=== PATIENT | male | born 1935 | race Caucasian/White ===

== ENCOUNTER 2016-03-27 13:25 | Inpatient (IN) | payer MEDICARE ==
[~2016-03-27] VITALS: Ht 172.7 cm; Wt 75.4 kg
--- NOTE | 2016-03-27 01:30 | NUR ---
critical lab Susan from the lab called with critical value lab of BUN at 103, paged night hospitalist with information. No call back of new orders. Will continue to monitor patient.
[~2016-03-27 13:25] MED LIST: EZET1TAB16 PO; FAMO20T PO; GLIP5TAB21 PO; INSU100C11 SUBQ; IPRA3AMP IH; LABE100T4 PO; TAMS0.4C98 PO; TRAZ-115 PO
[2016-03-27 13:48] VITALS: BP 110/70; PULSE 107; RESP 24; O2SAT 96
--- NOTE | 2016-03-27 14:43 | DRSVH ---
PROCEDURE: X-RAY CHEST, TWO VIEWS ([id number]) INDICATIONS: ABDOMEN PAIN TECHNIQUE: 2 views of the chest were acquired. COMPARISON: [facility], CR, XR PICC LINE PLACE BY NURSE, 01/01/2016, 13:18. [facility], CR, XR CHEST 1VW (PORTABLE), 12/24/2015, 13:07. [facility], CR, XR CHEST 1VW (PORTABLE), 11/17/2015, 5:25. [facility], CR, XR CHEST 1VW (PORTABLE), 11/19/2015, 5:23. FINDINGS: Surgical changes and devices: Cerclage wires are projected over the left apex. Lungs and pleura: There is likely a small left pleural effusion markedly decreased when compared with the study dated 12/24/15. The lungs are otherwise clear. No pneumothorax. Mediastinum: Mediastinal contours are normal. Heart size is normal. Bones and chest wall: No suspicious bony abnormalities. Soft tissues appear unremarkable. IMPRESSION: Small left pleural effusion. Dictated by: Erin Hazel M.D. on 03/27/2016 at 14:42 Approved by: Erin Hazel M.D. on 03/27/2016 at 14:42
[2016-03-27 16:02] LABS: BASOPHILS % (AUTO) 0.9 % (0-3); EOSINOPHILS % (AUTO) 1.3 % (0-5); Mean Corpuscular Hemoglobin 29.6 pg (27.0-35.0); Mean Corpuscular Volume 92.2 fL (81-100); NEUTROPHILS % (AUTO) 60.5 % (40-74); Platelet Count 332 bil/L (150-400)
[2016-03-27 16:27] LABS: Magnesium 2.7 mg/dL (1.6-2.6)
--- NOTE | 2016-03-27 16:27 | ED.REPORT ---
HPI- Male Date of Service Mar 27, 2016 ED Provider: Brissa Rhodes MD An 80 year old male with a history of respiratory failure, pneumonia, hypertension, diabetes, COPD, and cancer presents to the ED due to a possible UTI. Per pt's family, the pt was complaining of abdominal pain and urinary frequency yesterday, and requested that he be taken to a doctor. The family also reports increasing confusion and hematuria. They also believe that his feeding tube, which was placed following a recent intubation, may have problems. The pt was recently discharged from the hospital, where he had been admitted for pneumonia. Nursing Notes Stated Complaint: POSS UTI Chief Complaint: Male Abdominal Pain Nursing Notes Reviewed: Yes Allergies: Coded Allergies: No Known Allergies (Verified , 03/27/16) Scheduled Ezetimibe/Simvastatin 10-80 mg (Vytorin 10-80 mg) 1 Each Tablet 1 TABLET PO DAILY Famotidine (Pepcid) 20 Mg Tablet 20 MG PO BID Glipizide ER (Glipizide ER) 10 Mg Tab.er.24 10 MG PO BID Labetalol (Labetalol) 100 Mg Tablet 100 MG PO BID Tamsulosin (Flomax) 0.4 Mg Capsule 0.4 MG PO DAILY Trazodone (Trazodone) 50 Mg Tablet 50 MG PO HS Scheduled PRN Insulin Lispro (HumaLOG U100 Insulin Cartridge Refill) 100 Unit/1 Ml Cartridge 1 UNIT SUBQ TIDWM PRN PRN BLOOD GLUCOSE Blood Sugar Lispro Correction <151 0 units 151-175 1 unit 176-200 2 units 201-225 3 units 226-250 4 units 251-275 5 units 276-300 6 units 301-325 7 units 326-350 8 units 351-375 9 units 376-400 10 units >400 12 units Check blood sugars before meals and at bedtime. Use correction factor only before meals. Ipratropium/Albuterol Sulfate (Iprat-Albut 0.5-3(2.5) mg/3 mL Inhalant Soln) 3 Ml Ampul.neb 3 ML IH Q6 PRN PRN For Wheezing General Time Seen by MD: 16:22 Chief Complaint Blood in urine Hx Obtained From: Patient, Other family... Onset Occurred: 1 day ago Symptom Duration: Since onset Recent Healthcare: Recent doctor visit, Recent hospitalization Similar Sx Previous: Yes Past Medical History Past Medical History Notes: Patient admitted November [id number] for acute respiratory failure with hypercapnia requiring intubation, Haemophilus pneumonia and septic shock Past Medical History Admitted for acute respiratory failure with hypercapnia with COPD exacerbation 11/2015 My office pneumonia 11/2015 Septic shock requiring pressor use secondary to Haemophilus pneumonia 11/2015 Prostate cancer Acute kidney and injury on chronic kidney disease secondary to sepsis 11/20/2015 Diabetes Urinary retention Hearing loss. HLD. CKD stage III. Reports: COPD, Cancer, Diabetes mellitus, Hypertension Past Surgical History Reports: Appendectomy, Inguinal hernia repair, Prostatectomy, Tonsillectomy Smoking History Former Smoker Social History Resides at [facility] Alcohol Use: Denies alcohol use Ambulatory Status Independent Review of Systems GI: Reports: Abdominal pain Male: Reports Hematuria, Reports Urinary frequency Musculoskeletal: Denies: Back pain, Neck pain Skin: Denies Rash Complete sys rev & neg: except as marked. Respiratory: Reports: Shortness of breath, Denies: Non-productive cough Cardiovascular: Denies: Chest pain Psychiatric: Reports: Confusion Physical Exam Initial Vital Signs Vital Signs (First) Date Time Temp Pulse Resp B/P Pulse Ox O2 Delivery O2 Flow Rate FiO2 03/27/16 13:48 35.9 107 24 110/70 96 Room Air Initial VS: Reviewed exam deferred General/Constitutional: Awake, Alert Abdomen: Atraumatic, Soft mild diffuse tenderness to palpation PEG tube in place in epigastrium chronically ill appearing Skin: Atraumatic, Color NL, No rash, Warm, Dry Head / Eyes: Atraumatic, Normocephalic, PERRL, EOMI ENT: Atraumatic, Airway patent, Mucous membranes moist Neck: Atraumatic, Supple, Full range of motion Respiratory / Chest: Atraumatic, Breath sounds NL, Breath sounds = bilat, No respiratory distress Cardiovascular: Heart rate NL, Regular rhythm, Heart sounds NL Back: Atraumatic, Full range of motion Upper Extremity / MS: Atraumatic, Full range of motion Lower Extremity / Pelvis / MS: Atraumatic, Full range of motion Neurologic: Speech NL, No motor deficits, No sensory deficits Mental Status: Positive: Confused Psychiatric: Affect NL, Mood NL Interpretation & Diagnostics Lab Results Interpretation Result Diagram: 03/27/16 1550 03/27/16 2230 Test 03/27/16 15:50 03/27/16 16:30 White Blood Count 8.2th/mm3 (3.8-10.1) Red Blood Count 4.73mil/mm3 (4.40-5.80) Hemoglobin 14.0g/dL (13.8-17.2) Hematocrit 43.6% (41.0-50.0) Mean Corpuscular Volume 92.2fL (81-100) Mean Corpuscular Hemoglobin 29.6pg (27.0-35.0) Mean Corpuscular Hemoglobin Concent 32.1% (32.0-37.0) Red Cell Distribution Width 13.4% (12.3-15.4) Platelet Count 332bil/L (150-400) Neutrophils (%) (Auto) 60.5% (40-74) Lymphocytes (%) (Auto) 19.1% (14-46) Monocytes (%) (Auto) 18.0% (4-12) Eosinophils (%) (Auto) 1.3% (0-5) Basophils (%) (Auto) 0.9% (0-3) Lactic Acid Level 3.1mmol/L (0.4-2.0) Magnesium Level 2.7mg/dL (1.6-2.6) Total Bilirubin 0.5mg/dL (0.0-1.2) Aspartate Amino Transf (AST/SGOT) 20U/L (0-50) Alanine Aminotransferase (ALT/SGPT) 19U/L (0-44) Alkaline Phosphatase 79U/L (25-160) Total Protein 9.4g/dL (6.4-8.4) Albumin 3.4g/dL (3.4-5.0) Lipase 238U/L (13-60) Urine Color Dark yellow (YELLOW) Urine Appearance Turbid (CLEAR,HAZY) Urine pH 9.0 (5.0-8.0) Urine Specific Gill 1.010 (1.003-1.035) Urine Protein 100mg/dL (NEG,TRACE) Urine Glucose (UA) Negativemg/dL (NEGATIVE) Urine Ketones Negativemg/dL (NEGATIVE) Urine Occult Blood Large (NEGATIVE) Urine Nitrite Positive (NEGATIVE) Urine Bilirubin Negative (NEGATIVE) Urine Urobilinogen Normalmg/dL (NORMAL) Urine Leukocyte Esterase Moderate (NEGATIVE) Urine RBC 3-10/hpf (0-2) Urine WBC 11-50/hpf (0-5) Urine Epithelial Cells None/hpf (NONE-MOD) Urine Crystals None seen (NONE SEEN) Urine Bacteria Few/hpf (NONE-FEW) Urine Hyaline Casts None/lpf (NONE) Urine Granular Casts None seen (NONE SEEN) Urine Waxy Casts None seen (NONE SEEN) Urine Red Blood Cell Casts None seen (NONE SEEN) Urine White Blood Cell Casts None seen (NONE SEEN) Urine Mucus Present (None Seen) Urine Trichomonas None seen (NONE SEEN) Urine Yeast None (NONE SEEN) Urinalysis Comment None Urine Culture Reflexed Indicated ECG Interpretation ECG Interpretation: sinus tachycardia with a rate of [address] elevation slight ST depression in V2 T wave inversion in AVR and V1 Time: 16:59 Interpreted by: ED physician Re-Eval/Medical Decision Med Decision/Clinical Course 80-year-old male with extensive past medical history brought in by his family with concern for hematuria and increased confusion. Differential diagnosis includes but is not limited to dehydration versus urinary tract infection versus electrolyte abnormality versus pneumonia. Chest x-ray is concerning for small pleural effusion. Patient has urinary tract infection on urinalysis. He has an elevated lactate of 3.2, along with new renal insufficiency with creatinine of 3 which is new for him, and hyperkalemia with potassium of greater than 6. EKG was unchanged from prior, and at this time, I feel hyperkalemia can be treated with fluids alone. Patient was admitted to hospital. I have given him a gram of Rocephin in the emergency department to treat his urinary tract infection, and fluids for his lactate acidosis. His vital signs remained normal while he was here. I did start having a discussion with the family about his CODE STATUS. They are not yet ready to make him DO NOT RESUSCITATE, though I explained to them that I do not feel he will have meaningful recovery if he does code. Her aware and amenable to plan for admission at this time. Source of Hx: Old records Re-Evaluation/Progress : Time of Eval: 17:17 Patient Status: Condition unchanged Re-Evaluation/Progress Note: Pt rechecked, who is resting. The diagnosis and plan for discharge are addressed with pt's family present. The pt and his family understand and agree with the plan. All questions are addressed at this time. Consultation : Referral / Consult Name: Pa French MD Consulted With: Hospitalist Call Returned at: 17:06 Supervisor Fish Processing: Agrees with eval, Agrees with plan, Accepts admit Note: Spoke with Dr. French, hospitalist, regarding pt's case. Dr. French agrees with the evaluation and agrees to admit the pt. Counseled Regarding: Diagnosis, Lab results, Need for admission Discharge & Departure Impression: Primary Impression: UTI (urinary tract infection) Urinary tract infection type: site unspecified Hematuria presence: with hematuria Qualified Code: N39.0 - Urinary tract infection, site not specified Additional Impressions: Pancreatitis Acute kidney failure Acute renal failure type: unspecified Qualified Code: N17.9 - Acute kidney failure, unspecified Lactic acidosis Dehydration Disposition: ADMITTED TO HOSPITAL Discharge Condition All VS Reviewed: Yes Condition: Stable Referrals: Roscoe Lynch MD (PCP) [facility] Att[facility] Portions of this note were transcribed by Kendra Díaz. Dr. Carmelo Benson personally performed the history, physical exam and medical decision-making; I reviewed and confirmed the accuracy of the information in the transcribed note. Signed by: emerald Nunn, 03/27/2016, 21:07 copies to: Roscoe Lynch MD, Rebecca A MD Mar 27, 2016 16:27 KENDRA DÍAZ Mar 27, 2016 16:58 Primary Impression: UTI (urinary tract infection) Urinary tract infection type: site unspecified Hematuria presence: with hematuria Qualified Code: N39.0 - Urinary tract infection, site not specified Additional Impressions: Pancreatitis Acute kidney failure Acute renal failure type: unspecified Qualified Code: N17.9 - Acute kidney failure, unspecified Lactic acidosis Dehydration Disposition: ADMITTED TO HOSPITAL Discharge Condition All VS Reviewed: Yes Condition: Stable Referrals: Roscoe Lynch MD (PCP) [facility] Portions of this note were transcribed by Kendra Díaz. Dr. Carmelo Benson personally performed the history, physical exam and medical decision-making; I reviewed and confirmed the accuracy of the information in the transcribed note. Signed by: emerald Nunn, 03/27/2016, 21:07 copies to: Roscoe Lynch MD, Rebecca A MD Mar 27, 2016 16:27 KENDRA DÍAZ Mar 27, 2016 16:58
[2016-03-27] MEDS ORDERED: 0.9% Sodium Chloride 1,000 ML IV ONE (16:45)
[2016-03-27] MEDS ORDERED: cefTRIAXone Inj 1,000 MG in IV Premix 1 EACH IV ONE (16:45)
[2016-03-27 16:59] VITALS: BP 119/63; PULSE 106; RESP 20; O2SAT 97
[2016-03-27] MEDS ORDERED: Alum-Mag Hydrox-Simeth 30 mL Suspension PO PRN ×2 (17:15→17:20)
[2016-03-27] MEDS ORDERED: Ondansetron 2 mg/mL 2 mL Inj IVPUSH PRN ×2 (17:15→17:20)
[2016-03-27] MEDS: 0.9% Sodium Chloride 1,000 ML IV SCH (17:17)
[2016-03-27] MEDS ORDERED: Polyethylene Glycol (PEG) 17 Gm Powder PO PRN (17:20)
[2016-03-27] MEDS ORDERED: HYDROcodone-APAP 5-325 mg Tablet PO PRN (17:20)
[2016-03-27 17:41] LABS: COLOR,URINE DARK YELLOW (YELLOW)
[2016-03-27 17:42] LABS: APPEARANCE,URINE TURBID (CLEAR,HAZY); OCCULT BLOOD,URINE LARGE (NEGATIVE); UROBILINOGEN,URINE NORMAL (NORMAL)
[2016-03-27 18:14] VITALS: BP 118/55; PULSE 105; RESP 26; O2SAT 95
[2016-03-27 21:05] VITALS: BP 142/80; PULSE 96; RESP 18; O2SAT 96
[2016-03-27] MEDS ORDERED: Glucose 40% Oral Gel 15 Gm Tube PO PRN (21:35)
--- NOTE | 2016-03-27 21:48 | PCM.HPMED ---
Subjective Date of Service Mar 27, 2016 Primary Provider: Admitting Physician: Pa French MD Primary Care Physician: Roscoe Lynch MD Attending Physician: Pa French MD Admit Status: Full Admit, Admit to [facility] Team Chief Complaint: Patient really does not give any history everything was obtained from emergency room notes, and only the nursing notes are available and they are quite brief at this time. History of Present Illness: An 80 year old male with a history of respiratory failure, pneumonia, hypertension, diabetes, COPD, and cancer presents to the ED due to a possible UTI. Per pt's family, the pt was complaining of abdominal pain and urinary frequency yesterday, and requested that he be taken to a doctor. The family also reports increasing confusion and hematuria. They also believe that his feeding tube, which was placed following a recent intubation, may have problems. The pt was recently discharged from the hospital, where he had been admitted for pneumonia. As I understand things patient went to see urgent care yesterday and was prescribed some antibiotics for urinary symptoms. Today he has done poorly and while he may be improved is no family available this point time to verify this and the patient is extremely hard of hearing and confused. Review of Systems: Patient really cannot give any reliable review of systems. He states he is comfortable. So I would state this is unobtainable. Below is the review of systems obtained in the emergency room GI: Reports: Abdominal pain Male: Reports Hematuria, Reports Urinary frequency Musculoskeletal: Denies: Back pain, Neck pain Skin: Denies Rash Complete sys rev & neg: except as marked. Respiratory: Reports: Shortness of breath, Denies: Non-productive cough Cardiovascular: Denies: Chest pain Psychiatric: Reports: Confusion Allergies Coded Allergies: No Known Allergies (Verified , 03/27/16) PMH No family available to obtain accurate past medical week to however have a list of medications from [facility] Recently placed G-tube perhaps January 2016 Acute respiratory failure/aspiration and septic shock 11/15 Encephalopathy 11/15 CKD3 Uncontrolled diabetes type II Hypertension hyperlipidemia History of prostate cancer?? As reported 11/2015 H+P Medical History Hearing loss. HLD. CKD stage III. Reports: Cancer, Diabetes mellitus, Hypertension Surgical History Reports: Appendectomy, Inguinal hernia repair, Prostatectomy, Tonsillectomy Family History Unknown. Patient unable to provide family history since he is sedated and intubated Social History Occupation: Unknown Hx Alcohol Use: No Hx Substance Use: No Hx Tobacco Use: No Smoking Status: Former Smoker Living Arrangement: with Family Social History Hx Alcohol Use: No Hx Substance Use: No Hx Tobacco Use: No Smoking Status: Former Smoker Living Arrangement: with Family Exam Vital Signs Vital Sign - Last Date Time Temp Pulse Resp B/P Pulse Ox O2 Delivery O2 Flow Rate FiO2 03/27/16 21:05 36.2 96 18 142/80 96 Room Air Exam Gen.- A+ O 3 no apparent distress. Thin elderly male lying in bed I need to yell to communicate with him into his ear Eyes- open conjunctiva clear, pupils equal nonicteric ENT- ears normal, nose normal Neck- supple/trach midline CVS- RRR no murmur or gallop Lungs CTA GI- NABS/NT soft, G-tube in place Musc- moving 4 no obvious deformity Neuro- cranial nerves II through XII intact to gross examination, nonfocal Skin- warm and dry Psych- pleasant and appropriate, seemingly confused Really answer questions Lab and Diagnostics Result Diagram: 03/27/16 1550 03/27/16 1550 Assessment & Plan 80-year-old male from home failing to thrive possibly antibiotic failure for UTI. Has decreased level of consciousness, hyperkalemia. I believe his urine is clear at this point in time because he is partially treated with oral antibiotics. UTI/sepsis-Rocephin plus IV fluids Acute metabolic encephalopathy-monitor and try and avoid meds that might exacerbate confusion Hyperkalemia-giving a dose of Kayexalate now and IV fluids follow up in the a.m. as well as now and monitor cardiac status Diabetes 2-check HG A1c, given his regular dose of Lantus and sliding scale and going to hold his glyburide for now. We will not be giving him prandial as the patient is nothing by mouth Dysphagia-patient is nothing by mouth till we can assess his needs will get a nutrition consult for tube feeds Prophylaxis- DVT with SCDs and heparin Disposition from home where his cares for him is a full code Greater than 60 minutes admitting this medically complex patient GI Prophylaxis: H2 candida VTE Prophylaxis: Sub-Q Heparin (Unfractionated) Resuscitation Status: CPR: Attempt Resuscitation Pa French MD Mar 27, 2016 21:48
[2016-03-27] MEDS: Insulin LISPRO 300 Unit/3 mL Inj SUBQ SCH (22:00)
[2016-03-27 23:58] VITALS: PULSE 90
[2016-03-28] VITALS (7 sets, daily range): BP systolic 104–140; BP diastolic 61–78; PULSE 73–90; RESP 18–22; O2SAT 95–97
[2016-03-28] MEDS: Heparin 5,000 Unit/mL Inj SUBQ SCH ×4 (00:05→17:08)
[2016-03-28] MEDS: 0.9% Sodium Chloride 1,000 ML IV SCH ×3 (03:17→21:36)
[2016-03-28 06:20] LABS: BASOPHILS % (AUTO) 0.7 % (0-3); EOSINOPHILS % (AUTO) 1.9 % (0-5); MONOCYTES % (AUTO) 16.1 % (4-12); Mean Corpuscular Hemoglobin 29.4 pg (27.0-35.0); Mean Corpuscular Volume 91.4 fL (81-100); NEUTROPHILS % (AUTO) 69.3 % (40-74); Platelet Count 279 bil/L (150-400)
[2016-03-28] MEDS ORDERED: Famotidine 20 mg/50 mL NS Premix IV SCH (08:58)
[2016-03-28] MEDS: Insulin LISPRO 300 Unit/3 mL Inj SUBQ SCH ×4 (09:27→20:53)
--- NOTE | 2016-03-28 11:15 | NUR ---
NUTRITION ASSESSMENT: ASSESS: Pt is an 80yo M admitted for sepsis, UTI and possible pancreatitis. Pt has a PEG tube and per H&P family is concerned that the tube may be malfunctioning. RN reported that PEG flushed well with no issues. Received consult to start TF and verbal order in morning rounds to start TF. ST to evaluate pt today. RN aware of TF orders PMHX: Respiratory failure, Pneumonia, HTN, DM, COPD LABS: Reviewed. Bun 101, Recreational Therapy Aide 3.07, Glu 262, Lipase 238, Alb 3.4 MEDS: Reviewed. GI: BMx2 SKIN: Mukesh 17 CURRENT WTS: 70.8kg, BMI 23.6kg/m3 HOME TF: Unsure of home TF order. Balwinder f/u with family when available DIET: NPO EST. NEEDS: possible pancreatitis Kcals: 1750-2450kcal/day (25-35kcal/kg) Pro: 70-105g/day (1.0-1.5g/kg) Fluids: 1750-2450ml/day NUTRITION DIAGNOSIS: 1.) Inadequate oral intake related to inability to tolerate adequate PO as evidence by need for chronic TF NUTRITION INTERVENTION: 1.) Due to possible pancreatitis, will start pt on an elemental formula. Recommend start pt on Vital 1.5 @ 10ml/hr. Monitor for tolerance. If tolerated well, advance by 10ml q 6 hrs until reach goal rate of 55ml/hr. TF at goal will provide 1897kcal and 85g pro (100% estimated needs) 2.) Closely monitor TF tolerance and possible malfunction of tube as family is concerned about function 3.) Advance diet per ST. Will adjust TF goal rate if pt is able to tolerate a diet MONITOR / EVAL: TF start/foreign, ST eval, wt, labs, GI, POC, nutrition status. Will continue to monitor per high nutrition risk guidelines
--- NOTE | 2016-03-28 12:24 | NUR ---
Tube feed G-tube feed started at 1220, settings verified by another RN, Sabine. Per orders, 10mL/hr, to be advanced Q 6 hrs TOLERATED, with goal being 55mL/hr. Tubing to be changed q24hr. 40mL water flush every 4 hrs. Pt tolerating well. Will continue to monitor. Addendum: 03/28/16 at 1710 by NILE ROBERTS RN Residual checked at 1640=<5mL pt tolerating feed well, will continue to monitor.
--- NOTE | 2016-03-28 12:59 | NUR ---
Evaluation completed. Rec: Parker Strip/Pureed with 1:1 assist. Medication as tolerated. Sips h20 and ice chips ok. TOOL REPAIRER BENCH to follow. Please go to "Notes" then click on "Assessments and Notes" (bottom left corner of screen). Then select appropriate discipline tab on top of screen.
--- NOTE | 2016-03-28 15:11 | PCM.PNMED ---
Subjective Date of Service Mar 28, 2016 Subjective - Pt seen and examined this morning. - No acute events over night, - Denies any new complaints. Exam Vital Signs Vital Sign - Last Date Time Temp Pulse Resp B/P Pulse Ox O2 Delivery O2 Flow Rate FiO2 03/28/16 14:49 36.7 74 20 113/67 96 Room Air Intake and Output 03/27/16 03/27/16 03/28/16 Cumulative From/Thru 15:00 23:00 07:00 03/27/16 17:18 - 03/28/16 06:40 Intake Total 1000 ml 603 ml 1603 ml Balance 1000 ml 603 ml 1603 ml Intake Oral 0 ml 0 ml IV Total 1000 ml 603 ml 1603 ml # Voids 3 3 # Bowel Movements 2 2 Exam Gen.- Not in apparent distress. Thin elderly male lying in bed. Hard of hearing Eyes- open conjunctiva clear, pupils equal nonicteric ENT- ears normal, nose normal Neck- supple/trach midline, no lymphadenopathy. CVS- RRR no murmur or gallop Lungs CTA bilaterally, normal respiratory effort GI- soft, non tender, non distended, BS +nt, G-tube in place Musc- moving 4 no obvious deformity Neuro- cranial nerves II through XII intact to gross examination, nonfocal Skin- warm and dry IVs and Medications Medications Reviewed: Medications were reviewed in detail Lab and Diagnostics Result Diagram: 03/28/1652403/28/16524 Assessment & Plan 80-year-old male from home failing to thrive possibly antibiotic failure for UTI. UTI/sepsis- - On IV Rocephin day # 2 - IV hydration Acute metabolic encephalopathy - Multifactorial, infectious vs dementia - monitor and try and avoid medications that might exacerbate confusion Hyperkalemia - Received a dose of Kayexalate yesterday - K today mornin.3 down from 6.4 Diabetes - HbA1c pending - Lispro sliding scale Dysphagia - patient is nothing by mouth till we can assess his needs will get a nutrition consult for tube feeds - Pending speech and swallow evaluation Prophylaxis- DVT with SCDs and heparin Disposition from home where his cares for him is a full code GI Prophylaxis: H2 candida VTE Prophylaxis: Sub-Q Heparin (Unfractionated) VTE Mechanical Devices: Intermittant Pneumatic CD Resuscitation Status: CPR: Attempt Resuscitation Dany Lopez MD Mar 28, 2016 15:11
--- NOTE | 2016-03-28 18:56 | NUR ---
IV Pt agitated with IV occluding in LAC, family asked for another placement. aware. Aseptic technique used. Addendum: 03/28/16 at 1919 by NILE ROBERTS RN Amended: Links added.
[2016-03-28] MEDS: Insulin GLARgine 100 Unit/mL Syringe SUBQ SCH (20:54)
[2016-03-29] VITALS (9 sets, daily range): BP systolic 110–136; BP diastolic 61–84; PULSE 63–90; RESP 17–20; O2SAT 92–96
[2016-03-29] MEDS: Heparin 5,000 Unit/mL Inj SUBQ SCH ×3 (00:29→17:21)
--- NOTE | 2016-03-29 05:29 | NUR ---
Tube Feed/GI Tube feed at 30ml/hr, goal 55. Residual assessed Q4H. Pt incontinent of stool/urine x 1. Patient assists with repositioning, uses call light for needs.
[2016-03-29] MEDS: Insulin LISPRO 300 Unit/3 mL Inj SUBQ SCH ×4 (07:47→21:38)
[2016-03-29] MEDS: 0.9% Sodium Chloride 1,000 ML IV SCH ×2 (07:51→19:31)
--- NOTE | 2016-03-29 08:03 | NUR ---
Tube feed/BG Residual tested, =130mL. Adjusted rate to 40mL/hr. pts blood sugar this AM 292. Pt eating nectar/pureed diet. Will continue to monitor. Addendum: 03/29/16 at 1313 by NILE ROBERTS RN Residual @ 8mL. rate will be adjusted to 50ml/hr at 6hrs. Pt tolerating feeding well. Denies having any questions. Addendum: 03/29/16 at 1550 by NILE ROBERTS RN Tube feed now at 50ml/hr @ 1500. will continue with hourly rounding. Pt tolerating well Addendum: 03/29/16 at 2319 by NILE ROBERTS RN Tube feed adjusted to 55mL/hr at 2200. Residual at that time was 150mL. Pt tolerating it well. HOB at or above 30*
--- NOTE | 2016-03-29 08:35 | NUR ---
KASSIDY signed Verbal permission to sign by pt's spouse over the phone. ANDREW Sweet
[2016-03-29 08:48] LABS: Mean Corpuscular Hemoglobin 29.5 pg (27.0-35.0); Mean Corpuscular Volume 93.4 fL (81-100)
--- NOTE | 2016-03-29 09:32 | NUR ---
Patient is on safest p.o. diet with supplemental tube feeds. PERFORMANCE CONSULTANT to sign off acute care. PERFORMANCE CONSULTANT recommended post acute. Encourage po intake while in hospital
[2016-03-29] MEDS: Famotidine Inj 20 MG in IV Premix 1 EACH IV SCH (10:15)
--- NOTE | 2016-03-29 10:48 | NUR ---
Evaluation completed. Please go to "Notes" then click on "Assessments and Notes" (bottom left corner of screen). Then select appropriate discipline tab on top of screen.
[2016-03-29] MEDS: cefTRIAXone Inj 1,000 MG in IV Premix 1 EACH IV SCH (10:53)
--- NOTE | 2016-03-29 11:44 | NUR ---
NUTRITION FOLLOW UP: ASSESS: 80 yo M admitted for sepsis, UTI and possible pancreatitis. Pt appears to be tolerating TF via PEG tube, currently at 40 ml/hr advancing towards goal. Pt with poor PO intake. PMHX: Respiratory failure, Pneumonia, HTN, DM, COPD LABS: Reviewed. BUN 81, Cr 2.54, Glu 367 MEDS: Reviewed. Insulin. GI: 2 BM (03/28)/ SKIN: Mukesh 17 CURRENT WT: 70.5 kg, BMI 23.6 kg/m2 HOME TF: Unsure of home TF order. Will f/u with family when available DIET: Pureed. PO intake 25%. ESTIMATED NEEDS: possible pancreatitis Calories: 1245-4445 kcal/day (25-35kcal/kg BW) Protein: 70-105 g/day (1.0-1.5g/kg BW) Fluids: 8837-7871 ml/day NUTRITION DIAGNOSIS: 1.) Inadequate oral intake related to inability to tolerate adequate PO as evidence by need for chronic TF.---PERSISTS. NUTRITION INTERVENTION: 1.) Continue to advance TF of Vital 1.5 to goal rate of 55 ml/hr. TF at goal will provide 1897 kcal and 85 g protein (100% estimated needs). 2.) Advance diet per ST. Will adjust TF goal rate based on pt's PO intake. MONITOR/EVALUATE: TF start/foreign, diet tolerance, wt, labs, GI, POC, nutrition status. Follow per high nutrition risk guidelines
--- NOTE | 2016-03-29 11:51 | NUR ---
Social Work: Initial Assessment Data: Pt is an 80 y/o male admitted for sepsis, UTI, pancreatitis. Pt's PCP is Dr Lynch, pt's insurance is [employer]. EMR reviewed. PT is recommending SNF. [employer]ICATOR [employer]EMS spoke with pt's on the phone for initial assessment, role explained. She states that pt lives with her in a single story home but that he recently was discharged from [facility]. She states that they do not have a DPOA set up, and did not want information. Pt's spouse states that pt does not drive, has no HH history, no LTC or VA benefits, and is not a caregiver for another. F[employer]ICATOR SPECIAL ITEMS explained PT recommendations for SNF, pt's spouse was hesitant for pt to go back to [facility]. Pt's spouse states she will be in later today. F[employer]ICATOR [employer] ITEMS will attempt to meet with her regarding SNF choice. F[employer]ICATOR [employer] ITEMS will continue to follow. Assessment: Pt who is independent at baseline. Plan: Pt will likely d/c to SNF, F[employer]ATOR [employer] will speak with pt and spouse this afternoon regarding SNF choice. ANDREW Sweet Addendum: 03/29/16 at 1155 by KAELYN SCHAEFFER Amended: Links added.
--- NOTE | 2016-03-29 13:53 | DRSVH ---
PROCEDURE: X-RAY CHEST, TWO VIEWS ([id number]) INDICATIONS: Possible Pneumonia TECHNIQUE: 2 views of the chest were acquired. COMPARISON: [facility], CR, XR CHEST 1VW (PORTABLE), 12/24/2015, 13:07. [facility], CR, XR CHEST 2VW, 03/27/2016, 14:16. FINDINGS: Surgical changes and devices: Cerclage wire is again seen projected over the medial left lung apex. Lungs and pleura: A small left-sided pleural fluid collection is again noted. Left basilar airspace opacity unchanged. Lungs otherwise are clear. Mediastinum: Mediastinal contours appear normal. Heart size is normal. Bones and chest wall: No suspicious bony lesions. Overlying soft tissues appear unremarkable. IMPRESSION: No change in small left pleural effusion and basilar opacity consistent with compressive atelectasis versus pneumonia. Dictated by: George Mclean RRA Interpreted: Itzel Dias MD on 03/29/2016 at 13:53 Transcribed by: RAMAN on 03/29/2016 at 13:53 Approved by: Itzel Dias MD, PhD on 03/29/2016 at 16:40
--- NOTE | 2016-03-29 18:40 | CONS ---
[address] [address] CONSULTATION REPORT PATIENT: RAF KAPLAN : 1935 MR#: [id number] ADMIT: 03/27/2016 JOB ID: [id number] DATE OF SERVICE: 03/29/2016 REASON FOR CONSULTATION: Management of abnormal kidney function test. HISTORY OF PRESENT ILLNESS: This is an 80-year-old male with significant past medical history of prostate cancer status post prostatectomy and radiation, recent history of respiratory failure, dysphagia status post G-tube placement, type 2 diabetes, hypertension, presented to the hospital due to abdominal pain and urinary frequency. According to the family, he had episodes of respiratory failure and required intubation in November 2015. The patient had dysphagia afterwards and required G-tube placement. He was sent to [facility]. He was just released home two weeks ago. The family reports the patient becomes weak and confused, with abdominal pain. He was admitted on March 27, 2016. Initial workup showed up pyuria with microscopic hematuria. Urine culture grew Proteus mirabilis. Currently patient is getting Rocephin 1 g every 24 hours. The family reports the patient is doing better overall. Initial blood work showed a potassium of 6.4, BUN of 106, creatinine of 3.3, sugar of 394. The patient has received normal saline at 100 cc/hour. His current potassium is 5.2, BUN of 81, creatinine of 2.54. The patient does not complain of dysuria or hematuria, only urinary frequency. The patient has no chest pain or shortness of breath. No lower extremity swelling. His baseline serum creatinine was around 1.5. The patient has not seen a kidney specialist. PAST MEDICAL HISTORY: 1. Prostate cancer, status post prostatectomy with the brachyradiation. 2. Recent history of respiratory failure due to pneumonia and septic shock in on November 2015. 3. Dysphagia status post G-tube placement. 4. Type 2 diabetes. 5. Hypertension. 6. Dyslipidemia. SURGICAL HISTORY: Appendectomy, inguinal hernia repair, prostatectomy, and tonsillectomy. FAMILY HISTORY: Positive for heart disease in the family. SOCIAL HISTORY: The patient is a former smoker. MEDICATIONS: Reviewed. ALLERGIES: No known drug allergies. REVIEW OF SYSTEMS: Fourteen point review of system was performed. PHYSICAL EXAMINATION: Vitals: Temperature 37.0, pulse 77, respiratory 19, blood pressure 124/84, pulse ox 92 on room air. General appearance: Awake, alert, oriented x3, in no acute distress. Hard of hearing. HEENT: Mild pallor. No jaundice. No JVD. No lymphadenopathy. No thyroid enlargement. Atraumatic. Moist mucous membranes. Temporal muscle wasting noted. Heart: Regular rhythm. Normal S1, S2. No murmurs, rubs, or gallops. Lungs: Clear to auscultation bilaterally. No wheezing. No rhonchi. Abdomen: Soft. G-tube in place. No discharge. No redness. Mild abdominal distention. Extremity: No edema, cyanosis, or clubbing of fingers. LABORATORY: Sodium 142, potassium 5.2, chloride 110, bicarb 19, BUN 81, creatinine 2.54. Glucose 367. Lactic acid 3.1. UA: pH 9.0, specific gravity 1.010, protein 100. Large occult blood; 3-10 RBC, 11-50 WBC, few bacteria. Urine culture grew Proteus mirabilis. Blood culture: No growth. ASSESSMENT: 1. Acute kidney injury on chronic kidney disease. His initial BUN and creatinine were 106 and 3.3, respectively. The patient's kidney function has improved with IV fluids and antibiotics treating for the UTI. The etiology of acute kidney injury in this patient is rather multifactorial including intravascular volume depletion and acute tubular necrosis due to ongoing infection; however, we need to rule out obstructive uropathy given significant history of prostate cancer and urinary retention in the past. Moreover, he has Proteus in the urine culture and his urine is very alkalotic raised the question of whether he has history of stone. We will continue IV fluids and antibiotics. I will order a kidney sonogram and we will check a postvoid residual using bedside bladder scan. I would recommend to insert Morton catheter if his urine volume is greater than 400 mL. 2. Hyperkalemia. Secondary to acute kidney injury, uncontrolled blood sugar. Recommend to put the patient on low-potassium diet 2 g per day. 3. Complicated urinary tract infection. 4. History of prostate cancer, status post prostatectomy and brachyradiation. 5. Recent history of respiratory failure. 6. Dysphagia, status post G-tube placement. 7. History of hypertension. 8. Dyslipidemia. Thank you, Dr. Pascual, for allowing me to participate in the care of your patient. We will monitor along with you.
--- NOTE | 2016-03-29 20:38 | NUR ---
Bladder scan/Reyes insert Per Nephrology request, Bladder scan done after pt stated to have just voided. Per scan, >510mL, reyes catheter placed, 580mL voided. Sterile technique used, pt tolerated procedure well. 16F Reyes draining cloudy, odorless urine. Pt states he is happy with the procedure d/t frequency with urination yet small amounts are voided.
[2016-03-29] MEDS: Insulin GLARgine 100 Unit/mL Syringe SUBQ SCH (20:50)
--- NOTE | 2016-03-29 22:41 | PCM.PNMED ---
Subjective Date of Service Mar 29, 2016 Subjective Patient feels okay however he is disoriented and confused. Exam Vital Signs Vital Sign - Last Date Time Temp Pulse Resp B/P Pulse Ox O2 Delivery O2 Flow Rate FiO2 03/29/16 20:49 36.7 90 19 136/67 96 Room Air Intake and Output 03/28/16 03/28/16 03/29/16 Cumulative From/Thru 15:00 23:00 07:00 03/27/16 17:18 - 03/28/16 19:41 Intake Total 1332 ml 2935 ml Balance 1332 ml 2935 ml Intake Oral 236 ml 236 ml IV Total 1096 ml 2699 ml # Voids 2 5 # Bowel Movements 1 3 Exam General: Patient is in no apparent distress HEENT: Head is atraumatic normocephalic. Eyes: Pupils are equally round and reactive to light and accommodation. Extraocular muscles are intact. Sclera are white anicteric. Subconjunctival mucosa is pink. Ears and nose are unremarkable. Oropharynx: There are no mucosal lesions, there is no thrush, there is no pharyngitis. Neck: Is supple, there are no nodes or masses or tenderness. Chest: Is clear to auscultation and percussion. There are no rales, rhonchi, wheezes or rubs. Heart: Rate, rhythm is regular. There is no murmur, rub or gallop. Abdomen: Good bowel sounds are present. Abdomen is soft, nontender, no organomegaly or masses were appreciated. Extremities: Are symmetrical and well perfused. There is no edema, there is no cellulitis, no rash. Neurologic: There are no focal neurological deficits. Cranial nerves II through XII are intact. There are no sensory or motor deficits. Psychiatric: Patients mood is calm and shows no sign of agitation. Genital: Deferred Rectal: Deferred Lab and Diagnostics Result Diagram: 03/29/1682403/29/16824 Microbiology Name: RAF KAPLAN Age/Sex: 80/M Attend Dr: Pa French MD Acct: [id number] Unit: [id number] Status: ADM IN [place] [facility] [place] 3011-1 Re03/27/16 Disch: Specimen: [id number] Collected: 03/27/16 Status: SARAH Metcalf#: [id number] Received: 03/27/16 Source: URINE CC Sp Desc : EUNICE Albright Dr: DOC,ED MD Ordered: URINE CULT Procedure Result Verified Site Microbiology YEIMY CULT URINE Final 03/29/16 Organism 1 PROTEUS MIRABILIS U COLONY COUNT/QUANTITY >100,000 CFU/ml Cefazolin-predicts results for the oral agents, cefaclor,cefdinir, cefpodoximen, cefprozil, cefuroximne axetil, cephalexin and loracarbed when used for therapy of uncomplicated UTI's due to E. coli, K. pneumoniae, and Proteus mirabilis. Cefpodoxime, cefdinir and cefuroxime axetil may be tested individually because some isolates may be susceptible to these agents while testing resistant to cefazolin. (CLSI X660-F50 pg 53) 1. PROTEUS MIRABILIS M.I.C Interp --------- ------ * AMPICILLIN >=32 R * CEFAZOLIN (CEPHALOSPORIN) UTI 8 S * CEFEPIME <=1 S * CEFTRIAXONE <=1 S * CEFUROXIME SODIUM 2 S * CIPROFLOXACIN >=4 R * ERTAPENEM <=0.5 S * GENTAMICIN >=16 R * LEVOFLOXACIN >=8 R * NITROFURANTOIN 128 R * TETRACYCLINE >=16 R * TOBRAMYCIN >=16 R * TRIMETHOPRIM/SULFAMETHOXAZOLE >=320 R Name: RAF KAPLAN Age/Sex: 80/M Attend Dr: Pa French MD Acct: [id number] Unit: [id number] Status: ADM IN Location: [facility] [place] 3011-1 Re03/27/16 Disch: Specimen: [id number] Collected: 03/28/16 Status: RES Req#: [id number] Received: 03/28/16 Source: SPUTUM EXP Sp Desc : Subm Dr: Reyes Olivia MD Ordered: GRAM SPT REFLEX, SPUTUM CULTURE Comments: Collected by Nurse/Unit? Y/N Y Comment: SPECIMEN IN LAB Procedure Result Verified Site Microbiology YEIMY CULT SPUTUM GS Final 03/28/16-1542 SPT GRAM STAIN NO POLYS SEEN RARE EPITHELIAL CELLS MANY MIXED NORMAL ALEYDA This Spec is of good Quality and acceptable for Cult RESPIRATORY CULTURE Preliminary 03/29/1697 PRELIMINARY ID GRAM NEG IVONNE PROBABLE PROTEUS SPECIES COLONY COUNT/QUANTITY MODERATE GROWTH X-Rays, CTs and MRIs PROCEDURE: X-RAY CHEST, TWO VIEWS ([id number]) INDICATIONS: Possible Pneumonia TECHNIQUE: 2 views of the chest were acquired. COMPARISON: [facility], CR, XR CHEST 1VW (PORTABLE), 12/24/2015, 13: 07. [facility], CR, XR CHEST 2VW, 03/27/2016, 14:16. FINDINGS: Surgical changes and devices: Cerclage wire is again seen projected over the medial left lung apex. Lungs and pleura: A small left-sided pleural fluid collection is again noted. Left basilar airspace opacity unchanged. Lungs otherwise are clear. Mediastinum: Mediastinal contours appear normal. Heart size is normal. Bones and chest wall: No suspicious bony lesions. Overlying soft tissues appear unremarkable. IMPRESSION: No change in small left pleural effusion and basilar opacity consistent with compressive atelectasis versus pneumonia. Dictated by: George Mclean RRA Interpreted: Itzel Dias MD on 03/29/2016 at 13:53 Transcribed by: RAMAN on 03/29/2016 at 13:53 Approved by: Itzel Dias MD, PhD on 03/29/2016 at 16:40 Cardiac Echo Impressions Echocardiogram Report Name: RAF KAPLAN Date: 11/12/2015 Height: 68 in Hospital Exam Location: [facility] Weight: 172 lb Gender: Male BSA: 1.9 m2 : 1935 Age: 80 yrs BP: 120/54 mmHg Reason For Study: Ordering Physician: HOSPITALIST [facility] Performed By: Jurgen Mejia Referring Physician: MINESH WOLF Interpretation Summary The left ventricle is grossly normal size. The ejection fraction is estimated to be 65-70%. The right ventricle is borderline dilated. The right ventricle appears to be hypertrophied. The right ventricular systolic function is normal. There is mild tricuspid regurgitation. Right ventricular systolic pressure is estimated to be 39 mmHg plus the clinically estimated CVP which cannot be estimated on this exam. The IVC is dilated, but has some respiratory collapse suggesting high central venous pressure. Assessment & Plan 80-year-old male admitted from home failing to thrive possibly antibiotic failure for UTI. # UTI with sepsis-present on admission and ongoing secondary to Proteus species - We will continue On IV Rocephin day # 3 - IV hydration # Pneumonia left lower lobe present on admission and ongoing -Continue Rocephin -Order incentive spirometry -Check final sputum culture result as sputum is showing gram-negative ivonne resembling Proteus # Acute metabolic encephalopathy - Multifactorial, secondary to likely a combination of infection and/or dementia - monitor and try and avoid medications that might exacerbate confusion # Acute renal failure present at the time of admission -improved slightly today with aggressive IV hydration -We have obtained nephrology consultation with Dr. Honeycutt and her assessment and recommendations are as follows: "1. Acute kidney injury on chronic kidney disease. His initial BUN and creatinine were 106 and 3.3, respectively. The patient's kidney function has improved with IV fluids and antibiotics treating for the UTI. The etiology of acute kidney injury in this patient is rather multifactorial including intravascular volume depletion and acute tubular necrosis due to ongoing infection; however, we need to rule out obstructive uropathy given significant history of prostate cancer and urinary retention in the past. Moreover, he has Proteus in the urine culture and his urine is very alkalotic raised the question of whether he has history of stone. We will continue IV fluids and antibiotics. I will order a kidney sonogram and we will check a postvoid residual using bedside bladder scan. I would recommend to insert Morton catheter if his urine volume is greater than 400 mL." # Hyperkalemia secondary to acute renal failure - Received a dose of Kayexalate - Potassium continues to improve with IV hydration. # Diabetes with poor control - HbA1c 8.4 - Lispro sliding scale # Dysphagia - patient is nothing by mouth and appreciate nutrition consult for tube feeding recommendations - Pending speech and swallow evaluation- continue with ice chips. Prophylaxis- DVT with SCDs and heparin Disposition from home where his cares for him is a full code Pain Evaluation: Adequate Pain Control GI Prophylaxis: H2 candida VTE Prophylaxis: Sub-Q Heparin (Unfractionated) VTE Mechanical Devices: Intermittant Pneumatic CD Resuscitation Status: CPR: Attempt Resuscitation CarlockBrown MD Mar 29, 2016 22:41
[2016-03-30] VITALS (7 sets, daily range): BP systolic 116–138; BP diastolic 58–74; PULSE 75–79; RESP 18–20; O2SAT 95–97
[2016-03-30] MEDS: Heparin 5,000 Unit/mL Inj SUBQ SCH ×3 (01:00→16:42)
[2016-03-30] MEDS: Insulin LISPRO 300 Unit/3 mL Inj SUBQ SCH ×4 (03:03→21:11)
[2016-03-30] MEDS: 0.9% Sodium Chloride 1,000 ML IV SCH (05:00)
--- NOTE | 2016-03-30 05:38 | NUR ---
peg tube pt slept some of the night, Tele SR 70-80's, denies CP, dizziness sob on rm air sats low to mid 90's. Peg tube patent, intact and running 55mls/hr with 40mls flush. Residuals q4 <500mls (20mls). Denies abd discomfort.
[2016-03-30 06:11] LABS: BASOPHILS % (AUTO) 0.3 % (0-3); MONOCYTES % (AUTO) 8.9 % (4-12); Mean Corpuscular Hemoglobin 29.6 pg (27.0-35.0); Mean Corpuscular Volume 95.4 fL (81-100); NEUTROPHILS % (AUTO) 66.9 % (40-74); Platelet Count 250 bil/L (150-400)
[2016-03-30 06:44] LABS: Magnesium 1.9 mg/dL (1.6-2.6); Phosphorus 2.3 mg/dL (2.5-4.9)
[2016-03-30 08:28] LABS: ERYTHROCYTE SEDIMENTATION RATE > 140 mm/hr (0-30)
[2016-03-30] MEDS: Famotidine Inj 20 MG in IV Premix 1 EACH IV SCH (10:01)
[2016-03-30] MEDS: Sodium-Potassium Phosphorus Packet TUBE SCH ×2 (10:01→16:44)
[2016-03-30] MEDS: cefTRIAXone Inj 1,000 MG in IV Premix 1 EACH IV SCH (10:27)
--- NOTE | 2016-03-30 11:20 | PCM.PNMED ---
Subjective Date of Service Mar 30, 2016 Subjective PVR > 500 cc last night, reyes cath placed. Serum creatinine is trending down. stable BP. Exam Vital Signs Vital Sign - Last Date Time Temp Pulse Resp B/P Pulse Ox O2 Delivery O2 Flow Rate FiO2 03/30/16 10:31 36.4 75 18 127/58 95 Room Air Intake and Output 03/29/16 03/29/16 03/30/16 Cumulative From/Thru 15:00 23:00 07:00 03/27/16 17:18 - 03/30/16 06:56 Intake Total 0 ml 2012 ml 1931 ml 6878 ml Output Total 580 ml 1200 ml 1780 ml Balance 0 ml 1432 ml 731 ml 5098 ml Intake Oral 0 ml 360 ml 0 ml 596 ml IV Total 1172 ml 1216 ml 5087 ml Tube Feeding 480 ml 635 ml 1115 ml Tube Irrigant 80 ml 80 ml Output Urine Total 580 ml 1200 ml 1780 ml # Voids 2 4 11 # Bowel Movements 3 Exam General appearance: Awake, alert, oriented x3, in no acute distress. Hard of hearing. HEENT: Mild pallor. No jaundice. No JVD. No lymphadenopathy. No thyroid enlargement. Atraumatic. Moist mucous membranes. Temporal muscle wasting noted. Heart: Regular rhythm. Normal S1, S2. No murmurs, rubs, or gallops. Lungs: Clear to auscultation bilaterally. No wheezing. No rhonchi. Abdomen: Soft. G-tube in place. No discharge. No redness. Mild abdominal distention. Extremity: No edema, cyanosis, or clubbing of fingers. : reyes cath in place with yellowish urine. Lab and Diagnostics Result Diagram: 03/30/1645 03/30/1645 Microbiology Name: RAF KAPLAN Age/Sex: 80/M Attend Dr: Pa French MD Acct: [id number] Unit: [id number] Status: ADM IN Location: [facility] [place] 3011-1 Re03/27/16 Disch: Specimen: [id number] Collected: 03/27/16 Status: SARAH Metcalf#: [id number] Received: 03/27/16 Source: URINE JARRETT Bustamante Desc : EUNICE Albright Dr: DANII,ED MD Ordered: URINE CULT Procedure Result Verified Site Microbiology YEIMY CULT URINE Final 03/29/16 Organism 1 PROTEUS MIRABILIS U COLONY COUNT/QUANTITY >100,000 CFU/ml Cefazolin-predicts results for the oral agents, cefaclor,cefdinir, cefpodoximen, cefprozil, cefuroximne axetil, cephalexin and loracarbed when used for therapy of uncomplicated UTI's due to E. coli, K. pneumoniae, and Proteus mirabilis. Cefpodoxime, cefdinir and cefuroxime axetil may be tested individually because some isolates may be susceptible to these agents while testing resistant to cefazolin. (CLSI B258-Y14 pg 53) 1. PROTEUS MIRABILIS M.I.C Interp --------- ------ * AMPICILLIN >=32 R * CEFAZOLIN (CEPHALOSPORIN) UTI 8 S * CEFEPIME <=1 S * CEFTRIAXONE <=1 S * CEFUROXIME SODIUM 2 S * CIPROFLOXACIN >=4 R * ERTAPENEM <=0.5 S * GENTAMICIN >=16 R * LEVOFLOXACIN >=8 R * NITROFURANTOIN 128 R * TETRACYCLINE >=16 R * TOBRAMYCIN >=16 R * TRIMETHOPRIM/SULFAMETHOXAZOLE >=320 R Name: RAF KAPLAN Age/Sex: 80/M Attend Dr: Pa French MD Acct: [id number] Unit: [id number] Status: ADM IN Location: [facility] [place] 3011-1 Re03/27/16 Disch: Specimen: [id number] Collected: 03/28/16 Status: RES Req#: [id number] Received: 03/28/16 Source: SPUTUM EXP Sp Desc : Subm Dr: Reyes Olivia MD Ordered: GRAM SPT REFLEX, SPUTUM CULTURE Comments: Collected by Nurse/Unit? Y/N Y Comment: SPECIMEN IN LAB Procedure Result Verified Site Microbiology YEIMY CULT SPUTUM GS Final 03/28/16-1542 SPT GRAM STAIN NO POLYS SEEN RARE EPITHELIAL CELLS MANY MIXED NORMAL ALEYDA This Spec is of good Quality and acceptable for Cult RESPIRATORY CULTURE Preliminary 03/29/16-3401 PRELIMINARY ID GRAM NEG IVONNE PROBABLE PROTEUS SPECIES COLONY COUNT/QUANTITY MODERATE GROWTH X-Rays, CTs and MRIs PROCEDURE: X-RAY CHEST, TWO VIEWS ([id number]) INDICATIONS: Possible Pneumonia TECHNIQUE: 2 views of the chest were acquired. COMPARISON: [facility], CR, XR CHEST 1VW (PORTABLE), 12/24/2015, 13: 07. [facility], CR, XR CHEST 2VW, 03/27/2016, 14:16. FINDINGS: Surgical changes and devices: Cerclage wire is again seen projected over the medial left lung apex. Lungs and pleura: A small left-sided pleural fluid collection is again noted. Left basilar airspace opacity unchanged. Lungs otherwise are clear. Mediastinum: Mediastinal contours appear normal. Heart size is normal. Bones and chest wall: No suspicious bony lesions. Overlying soft tissues appear unremarkable. IMPRESSION: No change in small left pleural effusion and basilar opacity consistent with compressive atelectasis versus pneumonia. Dictated by: George Mclean RRA Interpreted: Itzel Dias MD on 03/29/2016 at 13:53 Transcribed by: RAMAN on 03/29/2016 at 13:53 Approved by: Itzel Dias MD, PhD on 03/29/2016 at 16:40 Cardiac Echo Impressions Echocardiogram Report Name: RAF KAPLAN Date: 11/12/2015 Height: 68 in Hospital Exam Location: [facility] Weight: 172 lb Gender: Male BSA: 1.9 m2 : 1935 Age: 80 yrs BP: 120/54 mmHg Reason For Study: Ordering Physician: HOSPITALIST [facility] Performed By: Jurgen Mejia Referring Physician: MINESH WOLF Interpretation Summary The left ventricle is grossly normal size. The ejection fraction is estimated to be 65-70%. The right ventricle is borderline dilated. The right ventricle appears to be hypertrophied. The right ventricular systolic function is normal. There is mild tricuspid regurgitation. Right ventricular systolic pressure is estimated to be 39 mmHg plus the clinically estimated CVP which cannot be estimated on this exam. The IVC is dilated, but has some respiratory collapse suggesting high central venous pressure. Assessment & Plan 1. Acute kidney injury on chronic kidney disease stage 3. multifactorial: intravascular volume depletion, ATN from ongoing infection, obstructive uropathy. 2. Hyperkalemia. resolved. 3. Hypernatremia. 4. Hypophosphatemia. 5. Complicated urinary tract infection. 6. Urinary retention with history of prostate cancer, status post prostatectomy and brachyradiation. 7. Recent history of respiratory failure. 8. Dysphagia, status post G-tube placement. 9. History of hypertension. Plan: d/c IVF, increase free water flushes 250 ml q 4 hr. keep reyes catheter. repeat CMP in am. replace PO4. GI Prophylaxis: H2 candida VTE Prophylaxis: Sub-Q Heparin (Unfractionated) VTE Mechanical Devices: Intermittant Pneumatic CD Resuscitation Status: CPR: Attempt Resuscitation Kiet Lim MD Mar 30, 2016 11:20
--- NOTE | 2016-03-30 13:43 | NUR ---
Patient is safe on nectar/pureed diet with ice chips and sips of H20. Patient should be encouraged to have nectar/pureed meals as tolerated and sips of H20 and ice chips between meals. SERVICE CENTER COORDINATOR to sign off as no therapy need at this time.
--- NOTE | 2016-03-30 15:31 | NUR ---
NUTRITION FOLLOW UP: ASSESS: 80 yo M admitted for sepsis, UTI, pneumonia and metabolic encephalopathy. Pt started on tube feeding 03/28. RN and pt SO concerned re elevated bg and reported use of diabetic tube feeding formula at home. PMHX: Respiratory failure, Pneumonia, HTN, DM, COPD LABS: Reviewed. BUN 65,Cr 1.98,Lipase 238 (03/27), Phos 2.3, Alb 3.0,Ca 7.8,Na WNL MEDS: Reviewed. Insulin 30 u Lantus, humalog GI: 3 BM (03/28)/ SKIN: Mukesh 17 CURRENT WT: 70.6 kg, BMI 23.7 kg/m2 HOME TF: Diabetic formula, pt thought Glucerna ? DIET: Pureed. PO intake 5-25%. ESTIMATED NEEDS: possible pancreatitis Calories: 2615-8772 kcal/day (25-35kcal/kg BW) Protein: 70-105 g/day (1.0-1.5g/kg BW) Fluids: 9692-4564 ml/day NUTRITION DIAGNOSIS: 1.) Inadequate oral intake related to inability to tolerate adequate PO as evidence by need for chronic TF.---PERSISTS. 2.) Altered nutrition related laboratory values related to diabetes as evidenced by glucose 406. NUTRITION INTERVENTION: 1.) Will modify tube feeding to diabetic friendly formula (while in stock, appear to only have 1 box left) [facility] [place] [facility] at 35ml/hr advancing 15ml q 8 hrs to goal rate of 60ml/hr to provide 1656 kcal, 83g protein meeting 95% kcal needs 100% protein needs. Will modify based on po intake. Fluid goals rewritten per MD progress note at 250ml q 4 hrs with discontinuation of IVF. Diabetic formula providing 36% kcal from Carbohydrate vs 49% with previous formula Vital 1.5. MONITOR/EVALUATE: TF foreign, diet tolerance, wt, labs, GI, POC, nutrition status. Follow per high nutrition risk guidelines Addendum: 03/31/16 at [address] Tube feeding modified 03/30. Currently running at 50ml/hr, appears well tolerated with decrease in bg. Current BG at 187.
--- NOTE | 2016-03-30 17:36 | NUR ---
Hyperglycemia Pt. blood sugar readings trending up over last 24 hours. Up to 430 today at lunch time. MD notified, and nutrition called to see if we could change tube feeding formula. New diabetic formula bag hung at 1630. Will continue to monitor blood sugar.
[2016-03-30] MEDS: Insulin GLARgine 100 Unit/mL Syringe SUBQ SCH (21:13)
--- NOTE | 2016-03-30 21:18 | PCM.PNMED ---
Subjective Date of Service Mar 30, 2016 Subjective Patient remains pleasantly confused. He has no new complaints. He appears quite comfortable. Exam Vital Signs Vital Sign - Last Date Time Temp Pulse Resp B/P Pulse Ox O2 Delivery O2 Flow Rate FiO2 03/30/16 17:07 36.8 76 20 138/62 95 Room Air Intake and Output 03/29/16 03/29/16 03/30/16 Cumulative From/Thru 15:00 23:00 07:00 03/27/16 17:18 - 03/30/16 06:56 Intake Total 0 ml 2012 ml 1931 ml 6878 ml Output Total 580 ml 1200 ml 1780 ml Balance 0 ml 1432 ml 731 ml 5098 ml Intake Oral 0 ml 360 ml 0 ml 596 ml IV Total 1172 ml 1216 ml 5087 ml Tube Feeding 480 ml 635 ml 1115 ml Tube Irrigant 80 ml 80 ml Output Urine Total 580 ml 1200 ml 1780 ml # Voids 2 4 11 # Bowel Movements 3 Exam General: Patient is in no apparent distress HEENT: Head is atraumatic normocephalic. Eyes: Pupils are equally round and reactive to light and accommodation. Extraocular muscles are intact. Sclera are white anicteric. Subconjunctival mucosa is pink. Ears and nose are unremarkable. Oropharynx: There are no mucosal lesions, there is no thrush, there is no pharyngitis. Neck: Is supple, there are no nodes, or masses or tenderness. Chest: Main clear to auscultation and percussion. There are no rales, rhonchi, wheezes or rubs. Heart: Rate, rhythm is regular. There is no new murmur, rub or gallop. Abdomen: Good bowel sounds are present. Abdomen is soft, nontender, no organomegaly or masses were appreciated. Feeding tube site is unremarkable Extremities: Are symmetrical and well perfused. There is no edema, there is no cellulitis, no rash. Neurologic: There are no focal neurological deficits. Cranial nerves II through XII are intact. There are no sensory or motor deficits. Patient remains pleasantly confused. Psychiatric: Patients mood is calm and shows no sign of agitation. Genital: Deferred Rectal: Deferred Lab and Diagnostics Result Diagram: 03/30/16 0545 03/30/16 0545 Microbiology Name: EUSEBIO,RAF Drake Age/Sex: 80/M Attend Dr: Pa French MD Acct: [id number] Unit: [id number] Status: [place] [facility] [place]03/27/[place] Disch: Specimen: [id number] Collected: 03/27/16 Status: COMP Req#: [id number] Received: 03/27/16 Source: URINE CC Sp Desc : PP Jose Ramon Dr: DANII,ED Ordered: URINE CULT Procedure Result Verified Site Microbiology YEIMY CULT URINE Final 03/29/16-907 Organism 1 PROTEUS MIRABILIS U COLONY COUNT/QUANTITY >100,000 CFU/ml Cefazolin-predicts results for the oral agents, cefaclor,cefdinir, cefpodoximen, cefprozil, cefuroximne axetil, cephalexin and loracarbed when used for therapy of uncomplicated UTI's due to E. coli, K. pneumoniae, and Proteus mirabilis. Cefpodoxime, cefdinir and cefuroxime axetil may be tested individually because some isolates may be susceptible to these agents while testing resistant to cefazolin. (CLSI P337-C37 pg 53) 1. PROTEUS MIRABILIS M.I.C Interp --------- ------ * AMPICILLIN >=32 R * CEFAZOLIN (CEPHALOSPORIN) UTI 8 S * CEFEPIME <=1 S * CEFTRIAXONE <=1 S * CEFUROXIME SODIUM 2 S * CIPROFLOXACIN >=4 R * ERTAPENEM <=0.5 S * GENTAMICIN >=16 R * LEVOFLOXACIN >=8 R * NITROFURANTOIN 128 R * TETRACYCLINE >=16 R * TOBRAMYCIN >=16 R * TRIMETHOPRIM/SULFAMETHOXAZOLE >=320 R Name: RAF KAPLAN Age/Sex: 80/M Attend Dr: Pa French MD Acct: [id number] Unit: [id number] Status: [place] [facility] [place] Re03/27/16 Disch: Specimen: [id number] Collected: 03/28/16 Status: RES Req#: [id number] Received: 03/28/16 Source: SPUTUM EXP Sp Desc : Subm Dr: Reyes Olivia MD Ordered: GRAM SPT REFLEX, SPUTUM CULTURE Comments: Collected by Nurse/Unit? Y/N Y Comment: SPECIMEN IN LAB Procedure Result Verified Site Microbiology YEIMY CULT SPUTUM GS Final 03/28/16 SPT GRAM STAIN NO POLYS SEEN RARE EPITHELIAL CELLS MANY MIXED NORMAL ALEYDA This Spec is of good Quality and acceptable for Cult RESPIRATORY CULTURE Preliminary 03/29/16 PRELIMINARY ID GRAM NEG IVONNE PROBABLE PROTEUS SPECIES COLONY COUNT/QUANTITY MODERATE GROWTH X-Rays, CTs and MRIs PROCEDURE: X-RAY CHEST, TWO VIEWS ([id number]) INDICATIONS: Possible Pneumonia TECHNIQUE: 2 views of the chest were acquired. [facility] 13: 07. [facility], CR, XR CHEST 2VW, 03/27/2016, 14:16. FINDINGS: Surgical changes and devices: Cerclage wire is again seen projected over the medial left lung apex. Lungs and pleura: A small left-sided pleural fluid collection is again noted. Left basilar airspace opacity unchanged. Lungs otherwise are clear. Mediastinum: Mediastinal contours appear normal. Heart size is normal. Bones and chest wall: No suspicious bony lesions. Overlying soft tissues appear unremarkable. IMPRESSION: No change in small left pleural effusion and basilar opacity consistent with compressive atelectasis versus pneumonia. Dictated by: George Mclean RRA Interpreted: Itzel Dias MD on 03/29/2016 at 13:53 Transcribed by: RAMAN on 03/29/2016 at 13:53 Approved by: Itzel Dias MD, PhD on 03/29/2016 at 16:40 Cardiac Echo Impressions Echocardiogram Report Name: RAF KAPLAN Date: 11/12/2015 Height: 68 in Hospital Exam Location: [facility] Weight: 172 lb Gender: Male BSA: 1.9 m2 : 1935 Age: 80 yrs BP: 120/54 mmHg Reason For Study: Ordering Physician: HOSPITALIST [facility] Performed By: Jurgen Mejia Referring Physician: MINESH WOLF Interpretation Summary The left ventricle is grossly normal size. The ejection fraction is estimated to be 65-70%. The right ventricle is borderline dilated. The right ventricle appears to be hypertrophied. The right ventricular systolic function is normal. There is mild tricuspid regurgitation. Right ventricular systolic pressure is estimated to be 39 mmHg plus the clinically estimated CVP which cannot be estimated on this exam. The IVC is dilated, but has some respiratory collapse suggesting high central venous pressure. Assessment & Plan 80-year-old male admitted from home failing to thrive possibly antibiotic failure for UTI. # UTI with sepsis-present on admission and ongoing secondary to Proteus species - We will continue On IV Rocephin day # 4 - IV hydration # Pneumonia left lower lobe present on admission and ongoing -Continue Rocephin -Order incentive spirometry -Check final sputum culture result, as sputum is showing gram-negative ivonne resembling Proteus # Acute metabolic encephalopathy. Mental status appears to be back to baseline. - Multifactorial, secondary to likely a combination of infection and/or dementia - Monitor and try and avoid medications that might exacerbate confusion # Acute renal failure present at the time of admission -improved slightly today with aggressive IV hydration -We have obtained nephrology consultation with Dr. Honeycutt and have discussed the case with her. Her assessment and recommendations are as follows: "Acute kidney injury on chronic kidney disease stage 3. multifactorial: intravascular volume depletion, ATN from ongoing infection, obstructive uropathy. Plan: d/c IVF, increase free water flushes 250 ml q 4 hr. keep reyes catheter. repeat CMP in am. replace PO4." # Hyperkalemia secondary to acute renal failure - Received a dose of Kayexalate - Potassium continues to improve with IV hydration. # Diabetes with poor control -Accu-Cheks demonstrate blood glucose levels are out of control. This is likely due to current tube feedings recommended by the nutritional department. I have asked them to change the tube feedings to Glucerna which he takes at home. -Blood sugars today have been over 400. Switch to Glucerna this should improve. - HbA1c 8.4 -Continue Lantus 30 units subcutaneous daily at bedtime - Continue Lispro sliding scale # Dysphagia - Patient is nothing by mouth and appreciate nutrition consult for tube feeding recommendations - Pending speech and swallow evaluation- continue with ice chips. Pain Evaluation: Adequate Pain Control GI Prophylaxis: H2 candida VTE Prophylaxis: Sub-Q Heparin (Unfractionated) VTE Mechanical Devices: Intermittant Pneumatic CD Resuscitation Status: CPR: Attempt Resuscitation Brown Pascual MD Mar 30, 2016 21:18
--- NOTE | 2016-03-30 21:29 | DRSVH ---
PROCEDURE: US RENAL SONOGRAM INDICATIONS: DEMETRI TECHNIQUE: Real-time scanning was performed of the kidneys and bladder, with image documentation. COMPARISON: [facility], US, US RENAL, 11/17/2015, 15:27. FINDINGS: Kidneys: Kidneys are normal in size. There is bilateral renal cortical thinning. Right kidney measu res 10.1 cm long; left kidney measures 10.1 cm long. Right renal cortical thickness is 1.0 cm; left renal cortical thickness is 1.1 cm. No hydronephrosis or nephrolithiasis. No suspicious solid mass lesions. Bladder: Bladder is contracted. Bladder wall appears thickened. ? Morton catheter. Miscellaneous: No free pelvic fluid. IMPRESSION: 1. Bilateral renal cortical thinning. 2. Contracted urinary bladder. ? Bladder wall thickening. Dictated by: Wally Rios M.D. on 03/30/2016 at 21:28 Approved by: Wally Rios M.D. on 03/30/2016 at 21:28
[2016-03-31] VITALS (7 sets, daily range): BP systolic 114–133; BP diastolic 63–73; PULSE 68–82; RESP 18–20; O2SAT 73–96
[2016-03-31] MEDS: Sodium-Potassium Phosphorus Packet TUBE SCH ×3 (00:55→16:56)
[2016-03-31] MEDS: Heparin 5,000 Unit/mL Inj SUBQ SCH ×3 (00:55→16:54)
--- NOTE | 2016-03-31 05:52 | NUR ---
Activity Pt several times attempted to leave, bed alarm on as prevention. Family came to visit and he settled down somewhat. Will continue to monitor.
[2016-03-31 06:15] LABS: BASOPHILS % (AUTO) 0.4 % (0-3); EOSINOPHILS % (AUTO) 4.4 % (0-5); MONOCYTES % (AUTO) 7.5 % (4-12); Mean Corpuscular Hemoglobin 29.7 pg (27.0-35.0); Mean Corpuscular Volume 94.5 fL (81-100); NEUTROPHILS % (AUTO) 70.3 % (40-74); Platelet Count 282 bil/L (150-400)
[2016-03-31] MEDS: cefTRIAXone Inj 1,000 MG in IV Premix 1 EACH IV SCH (09:05)
[2016-03-31] MEDS: Insulin LISPRO 300 Unit/3 mL Inj SUBQ SCH ×4 (09:06→21:48)
--- NOTE | 2016-03-31 09:19 | PCM.PNMED ---
Subjective Date of Service Mar 31, 2016 Subjective Patient's urine output and renal function continued to improve. Is somewhat poor historian and is only able to answer very simple questions. He denies any pain or breathing difficulties. He is somewhat difficult to arouse. Intake and output are 4531 in and 2400 in urine output. His hand approximately 1150 and urine output. Exam Vital Signs Vital Sign - Last Date Time Temp Pulse Resp B/P Pulse Ox O2 Delivery O2 Flow Rate FiO2 03/31/16 06:56 36.6 82 20 124/73 94 Room Air Intake and Output 03/30/16 03/30/16 03/31/16 Cumulative From/Thru 15:00 23:00 07:00 03/27/16 17:18 - 03/31/16 05:38 Intake Total 3089 ml 125 ml 80456 ml Output Total 1200 ml 2980 ml Balance 1889 ml 125 ml 7112 ml Intake Oral 1694 ml 2290 ml IV Total 800 ml 125 ml 6012 ml Tube Feeding 595 ml 1710 ml Tube Irrigant 80 ml Output Urine Total 1200 ml 2980 ml # Voids 11 # Bowel Movements 3 Exam HEENT examination is remarkable for pallor sclera. Neck is supple without adenopathy thyromegaly or distention. Lungs were clear to auscultation though somewhat diminished. Soft systolic murmur. Abdomen somewhat distended and tympanitic to percussion. Otherwise the abdomen was soft without any tenderness or rebound guarding masses or hepatosplenomegaly. Extremities symmetrical she clubbing cyanosis or edema. Skin turgor was diminished neuro is no evidence of any rashes. Lab and Diagnostics Result Diagram: 03/31/16 0545 03/31/16 0545 Microbiology Name: EUSEBIORAF A Age/Sex: 80/M Attend Dr: Pa French MD Acct: [id number] Unit: [id number] Status: ADM IN Location: [facility] [place] 3011-1 Re03/27/16 Disch: Specimen: [id number] Collected: 03/27/16 Status: SARAH Metcalf#: [id number] Received: 03/27/16 Source: URINE CC Robby Desc : EUNICE Albright Dr: DOC,ED Ordered: URINE CULT Procedure Result Verified Site Microbiology YEIMY CULT URINE Final 03/29/16 Organism 1 PROTEUS MIRABILIS U COLONY COUNT/QUANTITY >100,000 CFU/ml Cefazolin-predicts results for the oral agents, cefaclor,cefdinir, cefpodoximen, cefprozil, cefuroximne axetil, cephalexin and loracarbed when used for therapy of uncomplicated UTI's due to E. coli, K. pneumoniae, and Proteus mirabilis. Cefpodoxime, cefdinir and cefuroxime axetil may be tested individually because some isolates may be susceptible to these agents while testing resistant to cefazolin. (CLSI V329-Q55 pg 53) 1. PROTEUS MIRABILIS M.I.C Interp --------- ------ * AMPICILLIN >=32 R * CEFAZOLIN (CEPHALOSPORIN) UTI 8 S * CEFEPIME <=1 S * CEFTRIAXONE <=1 S * CEFUROXIME SODIUM 2 S * CIPROFLOXACIN >=4 R * ERTAPENEM <=0.5 S * GENTAMICIN >=16 R * LEVOFLOXACIN >=8 R * NITROFURANTOIN 128 R * TETRACYCLINE >=16 R * TOBRAMYCIN >=16 R * TRIMETHOPRIM/SULFAMETHOXAZOLE >=320 R Name: RAF KAPLAN Age/Sex: 80/M Attend Dr: Pa French MD Acct: [id number] Unit: [id number] Status: ADM IN Location: [facility] [place] 3011-1 Re03/27/16 Disch: Specimen: [id number] Collected: 03/28/16 Status: RES Req#: [id number] Received: 03/28/16 Source: SPUTUM EXP Sp Desc : Subm Dr: Reyes Olivia MD Ordered: GRAM SPT REFLEX, SPUTUM CULTURE Comments: Collected by Nurse/Unit? Y/N Y Comment: SPECIMEN IN LAB Procedure Result Verified Site Microbiology YEIMY CULT SPUTUM GS Final 03/28/16-1542 SPT GRAM STAIN NO POLYS SEEN RARE EPITHELIAL CELLS MANY MIXED NORMAL ALEYDA This Spec is of good Quality and acceptable for Cult RESPIRATORY CULTURE Preliminary 03/29/16-55 PRELIMINARY ID GRAM NEG IVONNE PROBABLE PROTEUS SPECIES COLONY COUNT/QUANTITY MODERATE GROWTH X-Rays, CTs and MRIs PROCEDURE: X-RAY CHEST, TWO VIEWS ([id number]) INDICATIONS: Possible Pneumonia TECHNIQUE: 2 views of the chest were acquired. COMPARISON: [facility], CR, XR CHEST 1VW (PORTABLE), 12/24/2015, 13: 07. [facility], CR, XR CHEST 2VW, 03/27/2016, 14:16. FINDINGS: Surgical changes and devices: Cerclage wire is again seen projected over the medial left lung apex. Lungs and pleura: A small left-sided pleural fluid collection is again noted. Left basilar airspace opacity unchanged. Lungs otherwise are clear. Mediastinum: Mediastinal contours appear normal. Heart size is normal. Bones and chest wall: No suspicious bony lesions. Overlying soft tissues appear unremarkable. IMPRESSION: No change in small left pleural effusion and basilar opacity consistent with compressive atelectasis versus pneumonia. Dictated by: George Mclean A Interpreted: Itzel Dias MD on 03/29/2016 at 13:53 Transcribed by: RAMAN on 03/29/2016 at 13:53 Approved by: Itzel Dias MD, PhD on 03/29/2016 at 16:40 Cardiac Echo Impressions Echocardiogram Report Name: RAF KAPLAN Date: 11/12/2015 Height: 68 in Hospital Exam Location: [facility] Weight: 172 lb Gender: Male BSA: 1.9 m2 : 1935 Age: 80 yrs BP: 120/54 mmHg Reason For Study: Ordering Physician: HOSPITALIST [facility] Performed By: Jurgen Mejia Referring Physician: MINESH WOLF Interpretation Summary The left ventricle is grossly normal size. The ejection fraction is estimated to be 65-70%. The right ventricle is borderline dilated. The right ventricle appears to be hypertrophied. The right ventricular systolic function is normal. There is mild tricuspid regurgitation. Right ventricular systolic pressure is estimated to be 39 mmHg plus the clinically estimated CVP which cannot be estimated on this exam. The IVC is dilated, but has some respiratory collapse suggesting high central venous pressure. Assessment & Plan Impression #1 acute kidney injury secondary to nephritis and dehydration appears to be resolving #2 metabolic acidosis #3 hypertension with hypertensive heart disease and hypertensive nephrosclerosis. Recommendations #1 as his renal function appears to be back to his baseline continue his current medical therapy. This point we will sign off and please let us know should have any questions or any new problems arise. Thank you for allowing us to participate in the care of this most pleasant patient. GI Prophylaxis: H2 candida VTE Prophylaxis: Sub-Q Heparin (Unfractionated) VTE Mechanical Devices: Intermittant Pneumatic CD Resuscitation Status: CPR: Attempt Resuscitation Fercho Watt DO Mar 31, 2016 09:19
[2016-03-31] MEDS: Famotidine Inj 20 MG in IV Premix 1 EACH IV SCH (10:05)
--- NOTE | 2016-03-31 10:08 | NUR ---
Gave access to [facility] and spoke with Radha Admission coordinator. She let me know they do not have a [facility] contract so she would need to see what would happen if they brought patient in prior to April. Updated SOILS ANALYST Addendum: 03/31/16 at 1040 by SYLVESTER MCDUFFIE [facility] can not accept this patient. Patient switching insurance on April 02. Updated SOILS ANALYST
--- NOTE | 2016-03-31 15:17 | NUR ---
gave verbal consent to KASSIDY
--- NOTE | 2016-03-31 16:27 | NUR ---
Social Work: Continued d/c planning Data: Pt is on day 4 of hospitalization. Pt discussed in rounds, pt likely ready for d/c tomorrow. Pt's insurance is [employer], but their insurance is changing on 04/02/2016 to [facility]. Both insurances are difficult to find SNF which contract with them. UR Specialist referred pt to [facility] David Loera, who declined pt due to not jaky with pt's upcoming insurance. UR specialist referred pt to Jovanni Alcaraz who continues to review pt and insurances to see if they can work with this. HEAVY EQUIPMENT SERVICE MANAGER will continue to follow. Assessment: Pt who is independent at baseline. Plan: Pt will likely d/c to SNF, likely on 04/02/2016 due to insurance issues with coverage. Jovanni Alcaraz continue to review pt. HEAVY EQUIPMENT SERVICE MANAGER will continue to follow. ANDREW Sweet
--- NOTE | 2016-03-31 18:43 | NUR ---
Tube Feeding/Activity: Tube feeding increased to goal rate of 60mls/hr @ approx 1530. Tolerating well, residuals <20mls/hr. Patient refusing to work w/PT today, refusing meals, taking only sips of fluids and small bites of applesauce this am. Turning and repositioning patient approx q2hrs. Discussed refusals with during her visit this evening.
[2016-03-31] MEDS: Insulin GLARgine 100 Unit/mL Syringe SUBQ SCH (21:41)
--- NOTE | 2016-03-31 21:46 | PCM.PNMED ---
Subjective Date of Service Mar 31, 2016 Subjective Patient's disposition is changed considerably today he has refused physical therapy is refused to get up out of bed and he is talking very little to the nursing staff. I asked him why he was behaving that way he stated that "I am trying to figure out what is going on". He has no specific complaints and does not appear to be in any discomfort. Exam Vital Signs Vital Sign - Last Date Time Temp Pulse Resp B/P Pulse Ox O2 Delivery O2 Flow Rate FiO2 03/31/16 20:46 36.8 76 18 122/63 95 Room Air Intake and Output 03/30/16 03/30/16 03/31/16 Cumulative From/Thru 15:00 23:00 07:00 03/27/16 17:18 - 03/31/16 05:38 Intake Total 3089 ml 125 ml 52775 ml Output Total 1200 ml 2980 ml Balance 1889 ml 125 ml 7112 ml Intake Oral 1694 ml 2290 ml IV Total 800 ml 125 ml 6012 ml Tube Feeding 595 ml 1710 ml Tube Irrigant 80 ml Output Urine Total 1200 ml 2980 ml # Voids 11 # Bowel Movements 3 Exam General: Patient is in no apparent distress. However he is not being cooperative with the therapist and nursing staff. HEENT: Head is atraumatic normocephalic. Eyes: Pupils are equally round and reactive to light and accommodation. Extraocular muscles are intact. Sclera are white anicteric. Subconjunctival mucosa is pink. Ears and nose are unremarkable. Oropharynx: There are no mucosal lesions, there is no thrush, there is no pharyngitis. Neck: Is supple, there are no nodes, or masses or tenderness. Chest: Remain clear to auscultation and percussion. There are no rales, rhonchi , wheezes or rubs. Heart: Rate, rhythm is regular. There is no new murmur, rub or gallop. Abdomen: Good bowel sounds are present. Abdomen is soft, nontender, no organomegaly or masses were appreciated. Feeding tube site is unremarkable. Extremities: Are symmetrical and well perfused. There is no edema, there is no cellulitis, no rash. Neurologic: There are no focal neurological deficits. Cranial nerves II through XII are intact. There are no sensory or motor deficits. Patient remains confused. Psychiatric: Patients mood is calm and shows no sign of agitation. However he is refusing therapies. Genital: Deferred Rectal: Deferred Lab and Diagnostics Result Diagram: 03/31/1654403/31/16544 Microbiology Name: RAF KAPLAN Age/Sex: 80/M Attend Dr: Pa French MD Acct: [id number] Unit: [id number] Status: ADM IN Location: [facility] [place] 3011-1 Re03/27/16 Disch: Specimen: [id number] Collected: 03/27/16 Status: COMP Req#: [id number] Received: 03/27/16 Source: URINE CC Sp Desc : EUNICE Albright Dr: DANII,ED Ordered: URINE CULT Procedure Result Verified Site Microbiology YEIMY CULT URINE Final 03/29/16-907 Organism 1 PROTEUS MIRABILIS U COLONY COUNT/QUANTITY >100,000 CFU/ml Cefazolin-predicts results for the oral agents, cefaclor,cefdinir, cefpodoximen, cefprozil, cefuroximne axetil, cephalexin and loracarbed when used for therapy of uncomplicated UTI's due to E. coli, K. pneumoniae, and Proteus mirabilis. Cefpodoxime, cefdinir and cefuroxime axetil may be tested individually because some isolates may be susceptible to these agents while testing resistant to cefazolin. (CLSI I127-C58 pg 53) 1. PROTEUS MIRABILIS M.I.C Interp --------- ------ * AMPICILLIN >=32 R * CEFAZOLIN (CEPHALOSPORIN) UTI 8 S * CEFEPIME <=1 S * CEFTRIAXONE <=1 S * CEFUROXIME SODIUM 2 S * CIPROFLOXACIN >=4 R * ERTAPENEM <=0.5 S * GENTAMICIN >=16 R * LEVOFLOXACIN >=8 R * NITROFURANTOIN 128 R * TETRACYCLINE >=16 R * TOBRAMYCIN >=16 R * TRIMETHOPRIM/SULFAMETHOXAZOLE >=320 R Name: RAF KAPLAN Age/Sex: 80/M Attend Dr: Pa French MD Acct: [id number] Unit: [id number] Status: ADM IN Location: [facility] [place] 3011-1 Re03/27/16 Disch: Specimen: [id number] Collected: 03/28/16 Status: SARAH Metcalf#: [id number] Received: 03/28/16 Source: SPUTUM EXP Sp Desc : Subm Dr: Reyes Olivia MD Ordered: GRAM SPT REFLEX, SPUTUM CULTURE Comments: Collected by Nurse/Unit? Y/N Y Comment: SPECIMEN IN LAB Procedure Result Verified Site Microbiology YEIMY CULT SPUTUM GS Final 03/28/161542 SPT GRAM STAIN NO POLYS SEEN RARE EPITHELIAL CELLS MANY MIXED NORMAL ALEYDA This Spec is of good Quality and acceptable for Cult RESPIRATORY CULTURE Final 03/30/16-1010 Organism 1 PROTEUS MIRABILIS COLONY COUNT/QUANTITY MODERATE GROWTH Organism 2 WITH NORMAL ALEYDA COLONY COUNT/QUANTITY LIGHT GROWTH 1. PROTEUS MIRABILIS M.I.C Interp --------- ------ * AMIKACIN <=2 S * AMPICILLIN >=32 R * AMPICILLIN/SULBACTAM >=32 R * CEFAZOLIN 8 R * CEFEPIME <=1 S * CEFOXITIN 8 S * CEFTRIAXONE <=1 S * ERTAPENEM <=0.5 S * GENTAMICIN >=16 R * MEROPENEM 0.5 S * TOBRAMYCIN >=16 R * TRIMETHOPRIM/SULFAMETHOXAZOLE >=320 R * PIPERACILLIN/TAZOBACTAM <=4 S X-Rays, CTs and MRIs PROCEDURE: X-RAY CHEST, TWO VIEWS ([id number]) INDICATIONS: Possible Pneumonia TECHNIQUE: 2 views of the chest were acquired. COMPARISON: [facility], CR, XR CHEST 1VW (PORTABLE), 12/24/2015, 13: 07. [facility], CR, XR CHEST 2VW, 03/27/2016, 14:16. FINDINGS: Surgical changes and devices: Cerclage wire is again seen projected over the medial left lung apex. Lungs and pleura: A small left-sided pleural fluid collection is again noted. Left basilar airspace opacity unchanged. Lungs otherwise are clear. Mediastinum: Mediastinal contours appear normal. Heart size is normal. Bones and chest wall: No suspicious bony lesions. Overlying soft tissues appear unremarkable. IMPRESSION: No change in small left pleural effusion and basilar opacity consistent with compressive atelectasis versus pneumonia. Dictated by: George Mclean RRA Interpreted: Itzel Dias MD on 03/29/2016 at 13:53 Transcribed by: RAMAN on 03/29/2016 at 13:53 Approved by: Itzel Dias MD, PhD on 03/29/2016 at 16:40 Cardiac Echo Impressions Echocardiogram Report Name: RAF KAPLANudrehana Date: 11/12/2015 Height: 68 in Hospital Exam Location: [facility] Weight: 172 lb Gender: Male BSA: 1.9 m2 : 1935 Age: 80 yrs BP: 120/54 mmHg Reason For Study: Ordering Physician: HOSPITALIST [facility] Performed By: Jurgen Mejia Referring Physician: MINESH WOLF Interpretation Summary The left ventricle is grossly normal size. The ejection fraction is estimated to be 65-70%. The right ventricle is borderline dilated. The right ventricle appears to be hypertrophied. The right ventricular systolic function is normal. There is mild tricuspid regurgitation. Right ventricular systolic pressure is estimated to be 39 mmHg plus the clinically estimated CVP which cannot be estimated on this exam. The IVC is dilated, but has some respiratory collapse suggesting high central venous pressure. Assessment & Plan 80-year-old male admitted from home failing to thrive possibly antibiotic failure for UTI. # UTI with sepsis-present on admission and ongoing secondary to Proteus species - We will continue On IV Rocephin day # 5 - IV hydration # Pneumonia left lower lobe present on admission and ongoing tender to Proteus species -Continue Rocephin -Order incentive spirometry -Repeat chest x-ray # Acute metabolic encephalopathy. Mental status appears to be back to baseline. However, today he had sort of a setback. - Multifactorial, secondary to likely a combination of infection and/or dementia - Monitor and try and avoid medications that might exacerbate confusion # Acute renal failure present at the time of admission -improved with IV hydration -We have obtained nephrology consultation with Dr. Honeycutt and have discussed the case with her. Her assessment and recommendations are as follows: "Acute kidney injury on chronic kidney disease stage 3. multifactorial: intravascular volume depletion, ATN from ongoing infection, obstructive uropathy. Plan: d/c IVF, increase free water flushes 250 ml q 4 hr. keep reyes catheter. repeat CMP in am. replace PO4." Patient Dr. Watt's input today. Nephrology has signed off. # Hyperkalemia secondary to acute renal failure - Received a dose of Kayexalate - Potassium continues to improve with IV hydration. # Diabetes with poor control on nondiabetic tube feeding now much better controlled -Accu-Cheks demonstrate blood glucose levels are out of control. This is likely due to current tube feedings recommended by the nutritional department. I have asked them to change the tube feedings to Glucerna which he takes at home. -Blood sugars today have been over 400. After Switch to Glucerna this did indeed improve. - HbA1c 8.4 -Continue Lantus 30 units subcutaneous daily at bedtime - Continue Lispro sliding scale # Dysphagia - Patient is nothing by mouth and appreciate nutrition consult for tube feeding recommendations - Patient is approved for a Pured diet. # Disposition: patient is likely able to be discharged in next 24-48 hours to a assisted facility Pain Evaluation: Adequate Pain Control GI Prophylaxis: H2 candida VTE Prophylaxis: Sub-Q Heparin (Unfractionated) VTE Mechanical Devices: Intermittant Pneumatic CD Resuscitation Status: CPR: Attempt Resuscitation Brown Pascual MD Mar 31, 2016 21:46
[2016-04-01] MEDS: Heparin 5,000 Unit/mL Inj SUBQ SCH ×3 (00:04→16:33)
[2016-04-01] MEDS: Sodium-Potassium Phosphorus Packet TUBE SCH ×3 (00:04→16:30)
--- NOTE | 2016-04-01 02:26 | NUR ---
Activity Pt resting in room for the shift, no complaints of pain or discomfort. PEG tube feeding at 60ml/hr with water bolus of 250 q 4 hrs. Pt cooperative with medication pass and cares. Left room with call light at bedside.
[2016-04-01 05:43] VITALS: BP 129/63; PULSE 71; RESP 18; O2SAT 94
[2016-04-01 06:21] LABS: Mean Corpuscular Volume 93 fL (81-100)
[2016-04-01 06:22] LABS: BASOPHILS % (AUTO) 0.3 % (0-3); EOSINOPHILS % (AUTO) 3.1 % (0-5); MONOCYTES % (AUTO) 7.6 % (4-12); NEUTROPHILS % (AUTO) 76.3 % (40-74); Platelet Count 295 bil/L (150-400)
[2016-04-01] MEDS ORDERED: 0.9% Sodium Chloride 250 ML ONE (07:33)
[2016-04-01] MEDS: Famotidine Inj 20 MG in IV Premix 1 EACH IV SCH (07:39)
[2016-04-01] MEDS: Insulin LISPRO 300 Unit/3 mL Inj SUBQ SCH ×4 (08:00→22:00)
[2016-04-01] MEDS: cefTRIAXone Inj 1,000 MG in IV Premix 1 EACH IV SCH (08:01)
[2016-04-01 15:30] VITALS: BP 136/68; PULSE 79; RESP 20; O2SAT 95
--- NOTE | 2016-04-01 18:10 | NUR ---
Activity q2 turns and skin care today. Pt. did not want to get up and ambulate. PT will work with him tomorrow. No complaints today. Pt. pleasant and cooperative.
[2016-04-01 20:43] VITALS: BP 130/58; PULSE 82; RESP 18; O2SAT 92
[2016-04-01] MEDS: Insulin GLARgine 100 Unit/mL Syringe SUBQ SCH (20:51)
--- NOTE | 2016-04-01 23:03 | PCM.PNMED ---
Subjective Date of Service Apr 01, 2016 Subjective The patient agrees to work with physical therapy today after a long discussion with him. Exam Vital Signs Vital Sign - Last Date Time Temp Pulse Resp B/P Pulse Ox O2 Delivery O2 Flow Rate FiO2 04/01/16 20:43 36.9 82 18 130/58 92 Room Air Intake and Output 03/31/16 03/31/16 04/01/16 Cumulative From/Thru 14:59 22:59 06:59 03/27/16 17:18 - 04/01/16 05:54 Intake Total 150 ml 2577 ml 0 ml 91067 ml Output Total 1150 ml 1400 ml 2149 ml 7679 ml Balance -1000 ml 1177 ml -2149 ml 5140 ml Intake Oral 0 ml 280 ml 0 ml 2570 ml IV Total 150 ml 6162 ml Tube Feeding 1021 ml 2731 ml Tube Irrigant 1276 ml 1356 ml Output Urine Total 1150 ml 1400 ml 850 ml 6380 ml Gastric Drainage Total 1299 ml 1299 ml # Voids 11 # Bowel Movements 1 4 Exam General: Patient is in no apparent distress. He appears comfortable and is more cooperative today. HEENT: Head is atraumatic normocephalic. Eyes: Pupils are equally round and reactive to light and accommodation. Extraocular muscles are intact. Sclera are white anicteric. Subconjunctival mucosa is pink. Ears and nose are unremarkable. Oropharynx: There are no mucosal lesions, there is no thrush, there is no pharyngitis. Neck: Is supple, there are no nodes, or masses or tenderness. Chest: Remain clear to auscultation and percussion. There are no rales, rhonchi , wheezes or rubs. Heart: Rate, rhythm is regular. There is no new murmur, rub or gallop. Abdomen: Good bowel sounds are present. Abdomen is soft, nontender, no organomegaly or masses were appreciated. Feeding tube site is unremarkable. Extremities: Are symmetrical and well perfused. There is no edema, there is no cellulitis, no rash. Neurologic: There are no focal neurological deficits. Cranial nerves II through XII are intact. There are no sensory or motor deficits. Patient remains confused. Psychiatric: Patients mood is calm and shows no sign of agitation. However, he agrees to participate with physical therapy today. Genital: Deferred Rectal: Deferred Lab and Diagnostics Result Diagram: 04/01/1653904/01/16539 Microbiology Name: RAF KAPLAN Age/Sex: 80/M Attend Dr: Pa French MD Acct: [id number] Unit: [id number] Status: ADM IN Location: [facility] [place] 3011-1 Re03/27/16 Disch: Specimen: [id number] Collected: 03/27/16 Status: COMP Req#: [id number] Received: 03/27/16 Source: URINE CC Sp Desc : EUNICE Albright Dr: DANII,ED Ordered: URINE CULT Procedure Result Verified Site Microbiology YEIMY CULT URINE Final 03/29/16-907 Organism 1 PROTEUS MIRABILIS U COLONY COUNT/QUANTITY >100,000 CFU/ml Cefazolin-predicts results for the oral agents, cefaclor,cefdinir, cefpodoximen, cefprozil, cefuroximne axetil, cephalexin and loracarbed when used for therapy of uncomplicated UTI's due to E. coli, K. pneumoniae, and Proteus mirabilis. Cefpodoxime, cefdinir and cefuroxime axetil may be tested individually because some isolates may be susceptible to these agents while testing resistant to cefazolin. (CLSI Y210-D49 pg 53) 1. PROTEUS MIRABILIS M.I.C Interp --------- ------ * AMPICILLIN >=32 R * CEFAZOLIN (CEPHALOSPORIN) UTI 8 S * CEFEPIME <=1 S * CEFTRIAXONE <=1 S * CEFUROXIME SODIUM 2 S * CIPROFLOXACIN >=4 R * ERTAPENEM <=0.5 S * GENTAMICIN >=16 R * LEVOFLOXACIN >=8 R * NITROFURANTOIN 128 R * TETRACYCLINE >=16 R * TOBRAMYCIN >=16 R * TRIMETHOPRIM/SULFAMETHOXAZOLE >=320 R Name: RAF KAPLAN Age/Sex: 80/M Attend Dr: Pa French MD Acct: [id number] Unit: [id number] Status: ADM IN Location: [facility] [place] 3011-1 Re03/27/16 Disch: Specimen: [id number] Collected: 03/28/16 Status: SARAH Metcalf#: [id number] Received: 03/28/16 Source: SPUTUM EXP Sp Desc : Subm Dr: Reyes Olivia MD Ordered: GRAM SPT REFLEX, SPUTUM CULTURE Comments: Collected by Nurse/Unit? Y/N Y Comment: SPECIMEN IN LAB Procedure Result Verified Site Microbiology YEIMY CULT SPUTUM GS Final 03/28/16-1542 SPT GRAM STAIN NO POLYS SEEN RARE EPITHELIAL CELLS MANY MIXED NORMAL ALEYDA This Spec is of good Quality and acceptable for Cult RESPIRATORY CULTURE Final 03/30/16-1010 Organism 1 PROTEUS MIRABILIS COLONY COUNT/QUANTITY MODERATE GROWTH Organism 2 WITH NORMAL ALEYDA COLONY COUNT/QUANTITY LIGHT GROWTH 1. PROTEUS MIRABILIS M.I.C Interp --------- ------ * AMIKACIN <=2 S * AMPICILLIN >=32 R * AMPICILLIN/SULBACTAM >=32 R * CEFAZOLIN 8 R * CEFEPIME <=1 S * CEFOXITIN 8 S * CEFTRIAXONE <=1 S * ERTAPENEM <=0.5 S * GENTAMICIN >=16 R * MEROPENEM 0.5 S * TOBRAMYCIN >=16 R * TRIMETHOPRIM/SULFAMETHOXAZOLE >=320 R * PIPERACILLIN/TAZOBACTAM <=4 S X-Rays, CTs and MRIs PROCEDURE: X-RAY CHEST, TWO VIEWS ([id number]) INDICATIONS: Possible Pneumonia TECHNIQUE: 2 views of the chest were acquired. COMPARISON: [facility], CR, XR CHEST 1VW (PORTABLE), 12/24/2015, 13: 07. [facility], CR, XR CHEST 2VW, 03/27/2016, 14:16. FINDINGS: Surgical changes and devices: Cerclage wire is again seen projected over the medial left lung apex. Lungs and pleura: A small left-sided pleural fluid collection is again noted. Left basilar airspace opacity unchanged. Lungs otherwise are clear. Mediastinum: Mediastinal contours appear normal. Heart size is normal. Bones and chest wall: No suspicious bony lesions. Overlying soft tissues appear unremarkable. IMPRESSION: No change in small left pleural effusion and basilar opacity consistent with compressive atelectasis versus pneumonia. Dictated by: George Mclean [facility] Interpreted: Itzel Dias MD on 03/29/2016 at 13:53 Transcribed by: RAMAN on 03/29/2016 at 13:53 Approved by: Itzel Dias MD, PhD on 03/29/2016 at 16:40 Cardiac Echo Impressions Echocardiogram Report Name: RAF KAPLAN AStudrehana Date: 11/12/2015 Height: 68 in Hospital Exam Location: [facility] Weight: 172 lb Gender: Male BSA: 1.9 m2 : 1935 Age: 80 yrs BP: 120/54 mmHg Reason For Study: Ordering Physician: HOSPITALIST [facility] Performed By: Jurgen Mejia Referring Physician: MINESH WOLF Interpretation Summary The left ventricle is grossly normal size. The ejection fraction is estimated to be 65-70%. The right ventricle is borderline dilated. The right ventricle appears to be hypertrophied. The right ventricular systolic function is normal. There is mild tricuspid regurgitation. Right ventricular systolic pressure is estimated to be 39 mmHg plus the clinically estimated CVP which cannot be estimated on this exam. The IVC is dilated, but has some respiratory collapse suggesting high central venous pressure. Assessment & Plan 80-year-old male admitted from home failing to thrive possibly antibiotic failure for UTI. # UTI with sepsis-present on admission and ongoing secondary to Proteus species - We will continue On IV Rocephin day # 6 - IV hydration # Pneumonia left lower lobe present on admission and ongoing tender to Proteus species -Continue Rocephin -Continue incentive spirometry -Repeat chest x-ray # Acute metabolic encephalopathy. Mental status appears to be back to baseline. - Multifactorial, secondary to likely a combination of infection and/or dementia - Monitor and try and avoid medications that might exacerbate confusion # Acute renal failure present at the time of admission -improved with IV hydration -We have obtained nephrology consultation with Dr. Honeycutt and have discussed the case with her. Her assessment and recommendations are as follows: "Acute kidney injury on chronic kidney disease stage 3. multifactorial: -Intravascular volume depletion, -ATN from ongoing infection, -Obstructive uropathy. Plan: d/c IVF, increase free water flushes 250 ml q 4 hr. keep reyes catheter. repeat CMP in am. replace PO4." Patient Dr. Watt's input today. Nephrology has signed off. # Hyperkalemia secondary to acute renal failure - Received a dose of Kayexalate - Potassium continues to improve with IV hydration. # Diabetes with poor control on nondiabetic tube feeding now much better controlled -Accu-Cheks demonstrate blood glucose levels are out of control. This is likely due to current tube feedings recommended by the nutritional department. I have asked them to change the tube feedings to Glucerna which he takes at home. -Blood sugars were over 400 until switching to Glucerna. This did indeed improve the patient's Accu-Chek results. - HbA1c 8.4 -Continue Lantus 30 units subcutaneous daily at bedtime - Continue Lispro sliding scale # Dysphagia - Patient is nothing by mouth and appreciate nutrition consult for tube feeding recommendations - Patient is approved for a Pured diet. # Disposition: patient is likely able to be discharged in next 24-48 hours to a [facility] facility Pain Evaluation: Adequate Pain Control GI Prophylaxis: H2 candida VTE Prophylaxis: Sub-Q Heparin (Unfractionated) VTE Mechanical Devices: Intermittant Pneumatic CD Resuscitation Status: CPR: Attempt Resuscitation SamaraBrown butts MD Apr 01, 2016 23:03
[2016-04-02] MEDS: Heparin 5,000 Unit/mL Inj SUBQ SCH ×3 (00:55→17:01)
[2016-04-02] MEDS: Sodium-Potassium Phosphorus Packet TUBE SCH ×2 (00:56→07:28)
[2016-04-02 05:37] VITALS: BP 130/74; PULSE 62; RESP 20; O2SAT 94
[2016-04-02 06:54] LABS: BASOPHILS % (AUTO) 0.3 % (0-3); EOSINOPHILS % (AUTO) 2.6 % (0-5); MONOCYTES % (AUTO) 8.5 % (4-12); Mean Corpuscular Hemoglobin 29.8 pg (27.0-35.0); Mean Corpuscular Volume 92.4 fL (81-100); NEUTROPHILS % (AUTO) 77.5 % (40-74); Platelet Count 299 bil/L (150-400)
[2016-04-02] MEDS: Insulin LISPRO 300 Unit/3 mL Inj SUBQ SCH ×4 (07:25→22:00)
[2016-04-02] MEDS: Famotidine Inj 20 MG in IV Premix 1 EACH IV SCH (07:30)
[2016-04-02] MEDS: cefTRIAXone Inj 1,000 MG in IV Premix 1 EACH IV SCH (07:49)
--- NOTE | 2016-04-02 11:31 | DRSVH ---
PROCEDURE: X-RAY CHEST, TWO VIEWS ([id number]) INDICATIONS: INCREASED COUGH/WBC TECHNIQUE: 2 views of the chest were acquired. COMPARISON: [facility], CR, XR CHEST 2VW, 03/29/2016, 9:29. FINDINGS: Surgical changes and devices: Cerclage wires and surgical clips are stable.. Lungs and pleura: No pleural effusions or pneumothorax. Opacity in the left lung base has decreased in size compared to prior examination. Mediastinum: Mediastinal contours are normal. Heart size is normal. Bones and chest wall: No suspicious bony abnormalities. Soft tissues appear unremarkable. IMPRESSION: Left basilar opacity decreased in size consistent with resolving pneumonia. Dictated by: Itzel Dias MD, PhD on 04/02/2016 at 11:29 Approved by: Itzel Dias MD, PhD on 04/02/2016 at 11:29
[2016-04-02 12:50] LABS: APPEARANCE,URINE HAZY (CLEAR,HAZY); COLOR,URINE YELLOW (YELLOW); OCCULT BLOOD,URINE LARGE (NEGATIVE); UROBILINOGEN,URINE NORMAL (NORMAL)
[2016-04-02 13:12] VITALS: BP 111/64; PULSE 84; RESP 18; O2SAT 95
--- NOTE | 2016-04-02 14:08 | NUR ---
KASSIDY signed. ANDREW Parra
--- NOTE | 2016-04-02 14:08 | NUR ---
Diarrhea Pt. has been having multiple episodes of diarrhea during the night and today. Frequent skin care done. MD notified and c-diff sample sent for testing. Contact precautions initiated pending results.
--- NOTE | 2016-04-02 18:49 | PCM.PNMED ---
Subjective Date of Service Apr 02, 2016 Subjective Patient is somewhat more interactive today and joking with nursing staff and myself. The nursing staff states that he has been having a considerable amount of diarrhea. The patient remains confused. Exam Vital Signs Vital Sign - Last Date Time Temp Pulse Resp B/P Pulse Ox O2 Delivery O2 Flow Rate FiO2 04/02/16 13:12 36.7 84 18 111/64 95 Room Air Intake and Output 04/01/16 04/01/16 04/02/16 Cumulative From/Thru 15:00 23:00 07:00 03/27/16 17:18 - 04/02/16 05:40 Intake Total 1537 ml 0 ml 65563 ml Output Total 975 ml 800 ml 9454 ml Balance 562 ml -800 ml 4902 ml Intake Oral 250 ml 0 ml 2820 ml IV Total 120 ml 6282 ml Tube Feeding 667 ml 3398 ml Tube Irrigant 500 ml 1856 ml Output Urine Total 975 ml 800 ml 8155 ml Gastric Drainage Total 1299 ml # Voids 11 # Bowel Movements 2 2 8 Exam General: Patient is in no apparent distress. He appears comfortable and is more interactive today. HEENT: Head is atraumatic normocephalic. Eyes: Pupils are equally round and reactive to light and accommodation. Extraocular muscles are intact. Sclera are white anicteric. Subconjunctival mucosa is pink. Ears and nose are unremarkable. Oropharynx: There are no mucosal lesions, there is no thrush, there is no pharyngitis. Neck: Is supple, there are no nodes, or masses or tenderness. Chest: Remain clear to auscultation and percussion. There are no rales, rhonchi , wheezes or rubs. Heart: Rate, rhythm is regular. There is no new murmur, rub or gallop. Abdomen: Good bowel sounds are present. Abdomen is soft, nontender, no organomegaly or masses were appreciated. Feeding tube site is unremarkable. Extremities: Are symmetrical and well perfused. There is no edema, there is no cellulitis, no rash. Neurologic: There are no focal neurological deficits. Cranial nerves II through XII are intact. There are no sensory or motor deficits. Patient remains confused. Psychiatric: Patients mood is calm and shows no sign of agitation. However, he agrees to participate with physical therapy today. Genital: Deferred Rectal: Deferred Lab and Diagnostics Result Diagram: 1/1/17 0616 1/1/17 0616 Microbiology Name: RAF KAPLAN Age/Sex: 80/M Attend Dr: Pa French MD Acct: [id number] Unit: [id number] Status: ADM IN [place] [facility] [place]1 Re03/27/16 Disch: Specimen: [id number] Collected: 03/27/16-1629 Status: COMP Req#: [id number] Received: 03/27/16 Source: URINE CC Sp Desc : EUNICE Albright Dr: DANII,ED Ordered: URINE CULT Procedure Result Verified Site Microbiology YEIMY CULT URINE Final 03/29/16-0908 Organism 1 PROTEUS MIRABILIS U COLONY COUNT/QUANTITY >100,000 CFU/ml Cefazolin-predicts results for the oral agents, cefaclor,cefdinir, cefpodoximen, cefprozil, cefuroximne axetil, cephalexin and loracarbed when used for therapy of uncomplicated UTI's due to E. coli, K. pneumoniae, and Proteus mirabilis. Cefpodoxime, cefdinir and cefuroxime axetil may be tested individually because some isolates may be susceptible to these agents while testing resistant to cefazolin. (CLSI X227-L86 pg 53) 1. PROTEUS MIRABILIS M.I.C Interp --------- ------ * AMPICILLIN >=32 R * CEFAZOLIN (CEPHALOSPORIN) UTI 8 S * CEFEPIME <=1 S * CEFTRIAXONE <=1 S * CEFUROXIME SODIUM 2 S * CIPROFLOXACIN >=4 R * ERTAPENEM <=0.5 S * GENTAMICIN >=16 R * LEVOFLOXACIN >=8 R * NITROFURANTOIN 128 R * TETRACYCLINE >=16 R * TOBRAMYCIN >=16 R * TRIMETHOPRIM/SULFAMETHOXAZOLE >=320 R Name: RAF KAPLAN Age/Sex: 80/M Attend Dr: Pa French MD Acct: [id number] Unit: [id number] Status: ADM IN [place] [facility] [place]011-1 Re03/27/16 Disch: Specimen: [id number] Collected: 03/28/16 Status: SARAH Metcalf#: [id number] Received: 03/28/16 Source: SPUTUM EXP Sp Desc : Subm Dr: Reyes Olivia MD Ordered: GRAM SPT REFLEX, SPUTUM CULTURE Comments: Collected by Nurse/Unit? Y/N Y Comment: SPECIMEN IN LAB Procedure Result Verified Site Microbiology YEIMY CULT SPUTUM GS Final 03/28/16-1542 SPT GRAM STAIN NO POLYS SEEN RARE EPITHELIAL CELLS MANY MIXED NORMAL ALEYDA This Spec is of good Quality and acceptable for Cult RESPIRATORY CULTURE Final 03/30/16-1010 Organism 1 PROTEUS MIRABILIS COLONY COUNT/QUANTITY MODERATE GROWTH Organism 2 WITH NORMAL ALEYDA COLONY COUNT/QUANTITY LIGHT GROWTH 1. PROTEUS MIRABILIS M.I.C Interp --------- ------ * AMIKACIN <=2 S * AMPICILLIN >=32 R * AMPICILLIN/SULBACTAM >=32 R * CEFAZOLIN 8 R * CEFEPIME <=1 S * CEFOXITIN 8 S * CEFTRIAXONE <=1 S * ERTAPENEM <=0.5 S * GENTAMICIN >=16 R * MEROPENEM 0.5 S * TOBRAMYCIN >=16 R * TRIMETHOPRIM/SULFAMETHOXAZOLE >=320 R * PIPERACILLIN/TAZOBACTAM <=4 S X-Rays, CTs and MRIs PROCEDURE: X-RAY CHEST, TWO VIEWS ([id number]) INDICATIONS: INCREASED COUGH/WBC TECHNIQUE: 2 views of the chest were acquired. COMPARISON: [facility], CR, XR CHEST 2VW, 03/29/2016, 9:29. FINDINGS: Surgical changes and devices: Cerclage wires and surgical clips are stable.. Lungs and pleura: No pleural effusions or pneumothorax. Opacity in the left lung base has decreased in size compared to prior examination. Mediastinum: Mediastinal contours are normal. Heart size is normal. Bones and chest wall: No suspicious bony abnormalities. Soft tissues appear unremarkable. IMPRESSION: Left basilar opacity decreased in size consistent with resolving pneumonia. Dictated by: Itzel Dias MD, PhD on 04/02/2016 at 11:29 Approved by: Itzel Dias MD, PhD on 04/02/2016 at 11:29 Cardiac Echo Impressions Echocardiogram Report Name: RAF KAPLAN Date: 11/12/2015 Height: 68 in Hospital Exam Location: [facility] Weight: 172 lb Gender: Male BSA: 1.9 m2 : 1935 Age: 80 yrs BP: 120/54 mmHg Reason For Study: Ordering Physician: HOSPITALIST [facility] Performed By: Jurgen Mejia Referring Physician: MINESH WOLF Interpretation Summary The left ventricle is grossly normal size. The ejection fraction is estimated to be 65-70%. The right ventricle is borderline dilated. The right ventricle appears to be hypertrophied. The right ventricular systolic function is normal. There is mild tricuspid regurgitation. Right ventricular systolic pressure is estimated to be 39 mmHg plus the clinically estimated CVP which cannot be estimated on this exam. The IVC is dilated, but has some respiratory collapse suggesting high central venous pressure. Assessment & Plan 80-year-old male admitted from home failing to thrive possibly antibiotic failure for UTI. # UTI with sepsis-present on admission and ongoing secondary to Proteus species - We will continue On IV Rocephin day # 7 - IV hydration # Pneumonia left lower lobe present on admission and ongoing tender to Proteus species -Continue Rocephin day #7 -Continue incentive spirometry -Repeat chest x-ray # Acute metabolic encephalopathy. Mental status appears to be back to baseline. - Multifactorial, secondary to likely a combination of infection and/or dementia - Monitor and try and avoid medications that might exacerbate confusion # Acute renal failure present at the time of admission which appears to now be at baseline. -improved with IV hydration -We have obtained nephrology consultation with Dr. Honeycutt and have discussed the case with her. Her assessment and recommendations are as follows: "Acute kidney injury on chronic kidney disease stage 3. multifactorial: -Intravascular volume depletion, -ATN from ongoing infection, -Obstructive uropathy. Plan: d/c IVF, increase free water flushes 250 ml q 4 hr. keep reyes catheter. repeat CMP in am. replace PO4." Patient Dr. Watt's input today. Nephrology has signed off. # Hyperkalemia secondary to acute renal failure - Received a dose of Kayexalate - Potassium continues to improve with IV hydration. # Diabetes with poor control on nondiabetic tube feeding now much better controlled -Accu-Cheks demonstrate blood glucose levels are out of control. This is likely due to current tube feedings recommended by the nutritional department. I have asked them to change the tube feedings to Glucerna which he takes at home. -Blood sugars were over 400 until switching to Glucerna. This did indeed improve the patient's Accu-Chek results. - HbA1c 8.4 -Continue Lantus 30 units subcutaneous daily at bedtime - Continue Lispro sliding scale # Dysphagia - Patient is nothing by mouth and appreciate nutrition consult for tube feeding recommendations - Patient is approved for a Pured diet. # Diarrhea -Rule out C. difficile -Rule out other i.e. tube feeding # New onset leukocytosis with increasing white blood cell count -Given increased white blood cell count and diarrhea need to rule out C. difficile colitis -Check stool for C. difficile -Check repeat UA urine C&S -Chest x-ray shows improvement in infiltrate left lower lobe # Disposition: patient is likely able to be discharged in next 24-48 hours to a penitentiary facility, if his diarrhea and elevated white blood cell count improved. Pain Evaluation: Adequate Pain Control GI Prophylaxis: H2 candida VTE Prophylaxis: Sub-Q Heparin (Unfractionated) VTE Mechanical Devices: Intermittant Pneumatic CD Resuscitation Status: CPR: Attempt Resuscitation Brown Pascual MD Apr 02, 2016 18:49
[2016-04-02 19:31] VITALS: BP 133/71; PULSE 82; RESP 18; O2SAT 95
[2016-04-02] MEDS: Insulin GLARgine 100 Unit/mL Syringe SUBQ SCH (20:57)
[2016-04-03] MEDS: Heparin 5,000 Unit/mL Inj SUBQ SCH ×3 (00:48→17:21)
[2016-04-03 05:27] VITALS: BP 113/69; PULSE 77; RESP 18; O2SAT 92
--- NOTE | 2016-04-03 06:08 | NUR ---
Diarrhea/Skin Pt had one episode of diarrhea during the night. Change and cleaning with Calmoseptine applied. Reddened but blanchable skin area on coccyx. Q2 turning continued, monitoring closely, patient cooperative with care.
[2016-04-03 06:27] LABS: BASOPHILS % (AUTO) 0.3 % (0-3); EOSINOPHILS % (AUTO) 3.7 % (0-5); MONOCYTES % (AUTO) 9.5 % (4-12); Mean Corpuscular Hemoglobin 29.9 pg (27.0-35.0); Mean Corpuscular Volume 91.4 fL (81-100); NEUTROPHILS % (AUTO) 71.4 % (40-74); Platelet Count 313 bil/L (150-400)
[2016-04-03] MEDS: cefTRIAXone Inj 1,000 MG in IV Premix 1 EACH IV SCH (07:58)
[2016-04-03] MEDS: Insulin LISPRO 300 Unit/3 mL Inj SUBQ SCH ×4 (08:16→21:45)
[2016-04-03] MEDS: Famotidine Inj 20 MG in IV Premix 1 EACH IV SCH (10:47)
--- NOTE | 2016-04-03 11:53 | NUR ---
Social Work-readiness for discharge: Data:EMR reviewed. Pt is on day 7 of hospitalization for Sepsis and UTI per H&P. Pt may be ready to discharge tomorrow or the next day. ANKIT placed a call to pt's to discuss discharge planning, SW role explained. states she would prefer pt to stay in [facility] if possible and would like Referral sent to [facility] as well. SW has left message with J[facility] to inquire about referral that had been sent. ANKIT placed a call to Bobbi Manzanares, renny at [facility] who confirms they have a contract with [employer]. ANKIT faxed [employer] and [employer] and also provided access. ANKIT called Tracey and also got pts Member # [id number] foreign collection clerk #[phone] and provided these to Alida. Alida to reach out to insurance company and work on authorization tomorrow. Paperwork in the chart. SW will continue to follow. Assessment:Pt to benefit from SNF. Plan:[facility] and [facility] have been faxed. Insurance authorization will need to be obtained. Paperwork in the chart. SW will continue to follow. ANDREW Parra
[2016-04-03 13:22] VITALS: BP 130/71; PULSE 76; RESP 18; O2SAT 93
--- NOTE | 2016-04-03 15:23 | NUR ---
Sadie Jorge can accept with Dr. Scanlon to follow. Alida to work on insurance authorization. ANDREW Parra
--- NOTE | 2016-04-03 18:28 | NUR ---
Diarrhea. Pts microbiology came back today positive for C. Diff. Spoke with family regarding this; there is someone in the family that is immunocompromised. Educated them on s/sx to watch out for and when to report to PCP.
--- NOTE | 2016-04-03 18:41 | PCM.PNMED ---
Subjective Date of Service Apr 03, 2016 Subjective Patient is awake and alert and cooperative on my exam. He appears to be incontinent of stool. Otherwise he has no new complaints. Exam Vital Signs Vital Sign - Last Date Time Temp Pulse Resp B/P Pulse Ox O2 Delivery O2 Flow Rate FiO2 04/03/16 13:22 36.4 76 18 130/71 93 Room Air Intake and Output 04/02/16 04/02/16 04/03/16 Cumulative From/Thru 15:00 23:00 07:00 03/27/16 17:18 - 04/03/16 06:20 Intake Total 1650 ml 0 ml 79161 ml Output Total 1100 ml 1300 ml 88750 ml Balance 550 ml -1300 ml 4152 ml Intake Oral 300 ml 0 ml 3120 ml IV Total 6282 ml Tube Feeding 1350 ml 4748 ml Tube Irrigant 1856 ml Output Urine Total 1100 ml 1300 ml 27368 ml Gastric Drainage Total 1299 ml # Voids 11 # Bowel Movements 8 2 18 Exam General: Patient is in no apparent distress. He appears comfortable and is more interactive today. HEENT: Head is atraumatic normocephalic. Eyes: Pupils are equally round and reactive to light and accommodation. Extraocular muscles are intact. Sclera are white anicteric. Subconjunctival mucosa is pink. Ears and nose are unremarkable. Oropharynx: There are no mucosal lesions, there is no thrush, there is no pharyngitis. Neck: Is supple, there are no nodes, or masses or tenderness. Chest: Remain clear to auscultation and percussion. There are no rales, rhonchi , wheezes or rubs. Heart: Rate, rhythm is regular. There is no new murmur, rub or gallop. Abdomen: Good bowel sounds are present. Abdomen is soft, nontender, no organomegaly or masses were appreciated. Feeding tube site is unremarkable. Extremities: Are symmetrical and well perfused. There is no edema, there is no cellulitis, no rash. Neurologic: There are no focal neurological deficits. Cranial nerves II through XII are intact. There are no sensory or motor deficits. Patient remains confused. Psychiatric: Patients mood is calm and shows no sign of agitation. However, he agrees to participate with physical therapy today. Genital: Deferred Rectal: Deferred Lab and Diagnostics Result Diagram: 04/03/16 0550 04/03/16 0550 Microbiology Name: RAF KAPLAN Age/Sex: 80/M Attend Dr: Pa French MD Acct: [id number] Unit: [id number] Status: ADM IN Location: [facility] [place] 3011-1 Re03/27/16 Disch: Specimen: [id number] Collected: 03/27/16 Status: COMP Req#: [id number] Received: 03/27/16 Source: URINE CC Sp Desc : EUNICE Albright Dr: DANII,DIANA DOOLEY Ordered: URINE CULT Procedure Result Verified Site Microbiology YEIMY CULT URINE Final 03/29/16-907 Organism 1 PROTEUS MIRABILIS U COLONY COUNT/QUANTITY >100,000 CFU/ml Cefazolin-predicts results for the oral agents, cefaclor,cefdinir, cefpodoximen, cefprozil, cefuroximne axetil, cephalexin and loracarbed when used for therapy of uncomplicated UTI's due to E. coli, K. pneumoniae, and Proteus mirabilis. Cefpodoxime, cefdinir and cefuroxime axetil may be tested individually because some isolates may be susceptible to these agents while testing resistant to cefazolin. (CLSI Z200-C29 pg 53) 1. PROTEUS MIRABILIS M.I.C Interp --------- ------ * AMPICILLIN >=32 R * CEFAZOLIN (CEPHALOSPORIN) UTI 8 S * CEFEPIME <=1 S * CEFTRIAXONE <=1 S * CEFUROXIME SODIUM 2 S * CIPROFLOXACIN >=4 R * ERTAPENEM <=0.5 S * GENTAMICIN >=16 R * LEVOFLOXACIN >=8 R * NITROFURANTOIN 128 R * TETRACYCLINE >=16 R * TOBRAMYCIN >=16 R * TRIMETHOPRIM/SULFAMETHOXAZOLE >=320 R Name: RAF KAPLAN Age/Sex: 80/M Attend Dr: Pa French MD Acct: [id number] Unit: [id number] Status: ADM IN Location: [facility] [place] 3011-1 Re03/27/16 Disch: Specimen: [id number] Collected: 03/28/16 Status: SARAH Metcalf#: [id number] Received: 03/28/16 Source: SPUTUM EXP Sp Desc : Subm Dr: Reyes Olivia MD Ordered: GRAM SPT REFLEX, SPUTUM CULTURE Comments: Collected by Nurse/Unit? Y/N Y Comment: SPECIMEN IN LAB Procedure Result Verified Site Microbiology YEIMY CULT SPUTUM GS Final 03/28/16-154 SPT GRAM STAIN NO POLYS SEEN RARE EPITHELIAL CELLS MANY MIXED NORMAL ALEYDA This Spec is of good Quality and acceptable for Cult RESPIRATORY CULTURE Final 03/30/16-1010 Organism 1 PROTEUS MIRABILIS COLONY COUNT/QUANTITY MODERATE GROWTH Organism 2 WITH NORMAL ALEYDA COLONY COUNT/QUANTITY LIGHT GROWTH 1. PROTEUS MIRABILIS M.I.C Interp --------- ------ * AMIKACIN <=2 S * AMPICILLIN >=32 R * AMPICILLIN/SULBACTAM >=32 R * CEFAZOLIN 8 R * CEFEPIME <=1 S * CEFOXITIN 8 S * CEFTRIAXONE <=1 S * ERTAPENEM <=0.5 S * GENTAMICIN >=16 R * MEROPENEM 0.5 S * TOBRAMYCIN >=16 R * TRIMETHOPRIM/SULFAMETHOXAZOLE >=320 R * PIPERACILLIN/TAZOBACTAM <=4 S X-Rays, CTs and MRIs PROCEDURE: X-RAY CHEST, TWO VIEWS ([id number]) INDICATIONS: INCREASED COUGH/WBC TECHNIQUE: 2 views of the chest were acquired. COMPARISON: [facility], CR, XR CHEST 2VW, 03/29/2016, 9:29. FINDINGS: Surgical changes and devices: Cerclage wires and surgical clips are stable.. Lungs and pleura: No pleural effusions or pneumothorax. Opacity in the left lung base has decreased in size compared to prior examination. Mediastinum: Mediastinal contours are normal. Heart size is normal. Bones and chest wall: No suspicious bony abnormalities. Soft tissues appear unremarkable. IMPRESSION: Left basilar opacity decreased in size consistent with resolving pneumonia. Dictated by: Itzel Dias MD, PhD on 04/02/2016 at 11:29 Approved by: Itzel Dias MD, PhD on 04/02/2016 at 11:29 Cardiac Echo Impressions Echocardiogram Report Name: RAF KAPLAN Date: 11/12/2015 Height: 68 in Hospital Exam Location: [facility] Weight: 172 lb Gender: Male BSA: 1.9 m2 : 1935 Age: 80 yrs BP: 120/54 mmHg Reason For Study: Ordering Physician: HOSPITALIST [facility] Performed By: Jurgen Mejia Referring Physician: MINESH WOLF Interpretation Summary The left ventricle is grossly normal size. The ejection fraction is estimated to be 65-70%. The right ventricle is borderline dilated. The right ventricle appears to be hypertrophied. The right ventricular systolic function is normal. There is mild tricuspid regurgitation. Right ventricular systolic pressure is estimated to be 39 mmHg plus the clinically estimated CVP which cannot be estimated on this exam. The IVC is dilated, but has some respiratory collapse suggesting high central venous pressure. Assessment & Plan 80-year-old male admitted from home failing to thrive possibly antibiotic failure for UTI. # UTI with sepsis-present on admission and ongoing secondary to Proteus species - We will continue On IV Rocephin day # 8 of 14 days therapy. - IV hydration # Pneumonia left lower lobe present on admission and ongoing, secondary to Proteus species -Continue Rocephin day #8 of 10-14 -Continue incentive spirometry -Repeat chest x-ray # Acute metabolic encephalopathy. Mental status appears to be back to baseline dementia. - Multifactorial, secondary to likely a combination of infection and/or dementia - Monitor and try and avoid medications that might exacerbate confusion # Acute renal failure present at the time of admission which appears to now be at baseline. -improved with IV hydration -We have obtained nephrology consultation with Dr. Honeycutt and have discussed the case with her. Her assessment and recommendations are as follows: "Acute kidney injury on chronic kidney disease stage 3. multifactorial: -Intravascular volume depletion, -ATN from ongoing infection, -Obstructive uropathy. Plan: d/c IVF, increase free water flushes 250 ml q 4 hr. keep reyes catheter. repeat CMP in am. replace PO4." Nephrology has since signed off. # Hyperkalemia secondary to acute renal failure - Received a dose of Kayexalate - Potassium continues to improve with IV hydration. # Diabetes with poor control on nondiabetic tube feeding now much better controlled -Accu-Cheks demonstrate blood glucose levels were out of control. I have asked nutritional services to change the tube feedings to Glucerna which he takes at home. -Blood sugars were over 400 before switching to Glucerna. After switching to Glucerna they improved markedly - HbA1c 8.4 -Continue Lantus 30 units subcutaneous daily at bedtime - Continue Lispro sliding scale # Dysphagia - Patient is nothing by mouth and appreciate nutrition consult for tube feeding recommendations - Patient is approved for a Pured diet. # C. difficile enterocolitis with diarrhea and leukocytosis -Start PO Flagyl -Start Lactinex for probiotic therapy # New onset leukocytosis with increasing white blood cell count secondary to C. difficile colitis -Stool is positive for C. difficile -The repeat urinalysis shows improvement since last urinalysis -Chest x-ray shows improvement in infiltrate left lower lobe # Disposition: patient is likely able to be discharged in next 24-48 hours to a group home facility, if his diarrhea and elevated white blood cell count are improved. Pain Evaluation: Adequate Pain Control GI Prophylaxis: H2 candida VTE Prophylaxis: Sub-Q Heparin (Unfractionated) VTE Mechanical Devices: Intermittant Pneumatic CD Resuscitation Status: CPR: Attempt Resuscitation SamaraBrown MD Apr 03, 2016 18:41
[2016-04-03 21:31] VITALS: BP 130/75; PULSE 89; RESP 18; O2SAT 92
[2016-04-03] MEDS: Insulin GLARgine 100 Unit/mL Syringe SUBQ SCH (21:44)
--- NOTE | 2016-04-04 00:19 | NUR ---
PEG TUBE FEEDING Monitoring Tube Feeding protocol. Pt makes attempts to lower HOB. HOB locked in at 30 degrees. Tube feeding at ordered rate of 60mLs/hr with 250mL flushes every 4 Hours. Feeding stopped for Gastric Residual Volume, 20mL aspirated then pushed back in, followed by line flush. Crushed meds administered, line flushed before and after. Connector on PEG tube is not very secure, monitoring regularly.
[2016-04-04] MEDS: Heparin 5,000 Unit/mL Inj SUBQ SCH ×3 (01:11→16:51)
[2016-04-04 05:12] VITALS: BP 120/62; PULSE 78; RESP 16; O2SAT 91
[2016-04-04 06:24] LABS: BASOPHILS % (AUTO) 0.4 % (0-3); EOSINOPHILS % (AUTO) 4.2 % (0-5); MONOCYTES % (AUTO) 10.7 % (4-12); Mean Corpuscular Hemoglobin 29.7 pg (27.0-35.0); Mean Corpuscular Volume 91.8 fL (81-100); NEUTROPHILS % (AUTO) 66.3 % (40-74); Platelet Count 285 bil/L (150-400)
[2016-04-04 06:51] LABS: Magnesium 1.9 mg/dL (1.6-2.6)
[2016-04-04] MEDS: Famotidine Inj 20 MG in IV Premix 1 EACH IV SCH (09:04)
[2016-04-04] MEDS: Insulin LISPRO 300 Unit/3 mL Inj SUBQ SCH ×2 (09:04→12:41)
[2016-04-04] MEDS: cefTRIAXone Inj 1,000 MG in IV Premix 1 EACH IV SCH (09:12)
--- NOTE | 2016-04-04 10:32 | NUR ---
[facility] can accept patient today with [facility] to follow. Sadie Jorge ran patient's common working file and what they see is patient converted to straight medicare with [facility] Supplement. They also would need to have bring in some of patient's tube feeding due to the arrival of their shipment which will come tonight or early tomorrow morning. Updated MORTGAGE BANKER
--- NOTE | 2016-04-04 11:00 | NUR ---
[facility] signed with Tracey via phone. ANDREW Parra
[2016-04-04] MEDS ORDERED: 0.9% Sodium Chloride 250 ML ONE (13:51)
[2016-04-04 13:58] VITALS: BP 111/58; PULSE 75; RESP 18; O2SAT 93
--- NOTE | 2016-04-04 14:46 | DRSVH ---
PROCEDURE: X-RAY CHEST ONE VIEW, PORTABLE ([id number]) INDICATIONS: Follow up for LLL Pneumonia TECHNIQUE: One view of the chest was acquired. COMPARISON: [facility], CR, XR CHEST 2VW, 04/02/2016, 11:08. [facility], CR, XR CHEST 1VW (PORTABLE), 12/24/2015, 13:07. [facility], CR, XR CHEST 1VW (PORTABLE), 11/01, 5:35. [facility], CR, XR CHEST 1VW (PORTABLE), 11/22/2015, 3:52. FINDINGS: Surgical changes and devices: None. Lungs and pleura: No pleural effusions or pneumothorax. Mild patchy left basilar opacity. Mediastinum: Mediastinal contours appear normal. Heart size is normal. Bones and chest wall: No suspicious bony lesions. Overlying soft tissues appear unremarkable. IMPRESSION: Mild left lower lobe pneumonia. Continued plain film surveillance is recommended to ensur e resolution, and to exclude underlying or central malignancy. Dictated by: Davonte Dinh M.D. on 04/04/2016 at 14:44 Approved by: Davonte Dinh M.D. on 04/04/2016 at 14:44
[2016-04-04 14:47] LABS: APPEARANCE,URINE HAZY (CLEAR,HAZY); COLOR,URINE STRAW (YELLOW); OCCULT BLOOD,URINE LARGE (NEGATIVE); UROBILINOGEN,URINE NORMAL (NORMAL)
--- NOTE | 2016-04-04 15:46 | PCM.DIMED ---
Discharge Instructions Date of Service Apr 04, 2016 Dates of Hospitalization Mar 27, 2016 at 17:08 Discharge Diagnosis Discharge Diagnosis Proteus pneumonia with proteus UTI with C difficile colitis Diet Diabetic, Other (Diabetic Pureed as tolerated in addition to Glucerna Tube Feedings) Activity Other (As per ) Call your provider Fever or Chills, Shortness of breath, Bleeding, Chest pain, Vomitting, Excessive diarrhea, Weakness (unilateral) Patient Instructions Follow-up Provider: Roscoe Lynch MD Follow-up with PCP in: 1 week Brown Pascual MD Apr 04, 2016 15:46
[2016-04-04] MEDS ORDERED: INSLIS SUBQ (15:57)
[2016-04-04] MEDS ORDERED: MYCC TOPICAL (15:57)
[2016-04-04] MEDS ORDERED: Lactobacillus Acidophilus PO (15:57)
[2016-04-04] MEDS ORDERED: INSU100V7 SUBQ (15:57)
[2016-04-04] MEDS ORDERED: METR500T PO (15:57)
[2016-04-04] MEDS ORDERED: HEPA500017 SUBQ (15:57)
[2016-04-04] MEDS ORDERED: CEFT2PIG IV (15:57)
--- NOTE | 2016-04-04 16:17 | NUR ---
Social Work-discharge: Data:EMR Reviewed. Pt is on day 8 of hospitalization for sepsis per H&P. Pt is medically stable to discharge home today. PT continues to recommend SNF placement. ANKIT spoke with Alidaashish Manzanares, admissions at [facility] who states they are able to accept pt today. Alida arranged transport for 1730. Alida states that they already have formula for pt at facility. ANKIT updated pt's Tracey via phone and she is agreeable to plan. ANKIT faxed orders and created packet. RN,UC,pt/family, and [facility] all updated and agreeable to plan. Assessment:Pt who would benefit from SNF. Plan:Pt to discharge to [facility] today via cabulance at 1730. RN,UC,pt/family, and [facility] all updated and agreeable to plan. ANDREW Parra
--- NOTE | 2016-04-04 16:28 | NUR ---
NUTRITION FOLLOW UP: ASSESS: 80 yo M admitted for sepsis, UTI, pneumonia and metabolic encephalopathy. Pt started on tube feeding 03/28. Diabetisource no longer in stock, will send Vital 1.5 until Glucerna is available. Pt is C. Diff positive. TF stopped d/t GRV. PMHX: Respiratory failure, Pneumonia, HTN, DM, COPD LABS: Reviewed. BUN 44, Cr 1.73, Glu 226, Albumin 2.6 MEDS: Reviewed. Bacid, Insulin. GI: BM x2 04/03 SKIN: No issues noted, Mukesh 17 CURRENT WT: 75.4 kg, BMI 25.3 kg/m2 Admit Wt: 70.8 kg HOME TF: Diabetisource AC @ 60 ml/hr + 250ml H2O q 4 hrs to provide 1656 kcal, 83g protein meeting 95% kcal needs 100% protein needs DIET: Pureed. PO intake 5-25% (also refusing some meals) ESTIMATED NEEDS: Calories: 8199-6199 kcal/day (25-30kcal/kg BW) Protein: 70-105 g/day (1.0-1.5g/kg BW) Fluids: 6069-0273 ml/day NUTRITION DIAGNOSIS: 1.) Inadequate oral intake related to inability to tolerate adequate PO as evidence by need for chronic TF.---PERSISTS. 2.) Altered nutrition related laboratory values related to diabetes as evidenced by glucose 406---IMPROVED NUTRITION INTERVENTION: 1.) Diabetisource AC running low. Pt has formula outside his room to last until tomorrow. In the event that pt is not discharged and Diabetisource runs out, will change pt to Vital 1.5 @ 55 ml/hr + 250 ml H2O q 4 hrs to provide 1898 kcal/d, 85 g/d protein, and 2466 ml/d H2O, meeting 100% of est needs. MONITOR/EVALUATE: TF foreign, diet tolerance, wt, labs, GI, POC, nutrition status. Follow per high nutrition risk guidelines
--- NOTE | 2016-04-04 17:47 | NUR ---
Discharge Pt d/c to [facility] at 1745 via . IV d/c. Morton left in place d/t urinary retention and DEMETRI-verbal request by . Report called to nurse Martita at 1730 at . All personal belongings left with pt. VSS.
--- NOTE | 2016-04-04 23:44 | PCM.DC.MED ---
Discharge Summary Date of Service Apr 04, 2016 Dates of Hospitalization Date of Hospital Admission Mar 27, 2016 at 17:08 Date of Discharge: Apr 04, 2016 Providers: Admitting Physician: Pa French MD Primary Care Physician: Roscoe Lynch MD Attending Physician: Pa French MD Diagnosis at Time of Discharge Diagnosis at Time of Discharge Proteus pneumonia with proteus UTI with C difficile colitis Consultations Frontal G consult for renal failure. Procedures XRay, CTs & MRIs PROCEDURE: X-RAY CHEST, TWO VIEWS ([id number]) INDICATIONS: INCREASED COUGH/WBC TECHNIQUE: 2 views of the chest were acquired. COMPARISON: [facility], CR, XR CHEST 2VW, 03/29/2016, 9:29. FINDINGS: Surgical changes and devices: Cerclage wires and surgical clips are stable.. Lungs and pleura: No pleural effusions or pneumothorax. Opacity in the left lung base has decreased in size compared to prior examination. Mediastinum: Mediastinal contours are normal. Heart size is normal. Bones and chest wall: No suspicious bony abnormalities. Soft tissues appear unremarkable. IMPRESSION: Left basilar opacity decreased in size consistent with resolving pneumonia. Dictated by: Itzel Dias MD, PhD on 04/02/2016 at 11:29 Approved by: Itzel Dias MD, PhD on 04/02/2016 at 11:29 Cardiac Echo Impression Echocardiogram Report Name: RAF KAPLAN Date: 11/12/2015 Height: 68 in Hospital Exam Location: [facility] Weight: 172 lb Gender: Male BSA: 1.9 m2 : 1935 Age: 80 yrs BP: 120/54 mmHg Reason For Study: Ordering Physician: HOSPITALIST [facility] Performed By: Jurgen Mejia Referring Physician: MINESH WOLF Interpretation Summary The left ventricle is grossly normal size. The ejection fraction is estimated to be 65-70%. The right ventricle is borderline dilated. The right ventricle appears to be hypertrophied. The right ventricular systolic function is normal. There is mild tricuspid regurgitation. Right ventricular systolic pressure is estimated to be 39 mmHg plus the clinically estimated CVP which cannot be estimated on this exam. The IVC is dilated, but has some respiratory collapse suggesting high central venous pressure. Brief History An 80 year old male with a history of respiratory failure, pneumonia, hypertension, diabetes, COPD, and cancer presents to the ED due to a possible UTI. Per pt's family, the pt was complaining of abdominal pain and urinary frequency yesterday, and requested that he be taken to a doctor. The family also reports increasing confusion and hematuria. They also believe that his feeding tube, which was placed following a recent intubation, may have problems. The pt was recently discharged from the hospital, where he had been admitted for pneumonia. As I understand things patient went to see urgent care yesterday and was prescribed some antibiotics for urinary symptoms. Today he has done poorly and while he may be improved is no family available this point time to verify this and the patient is extremely hard of hearing and confused. Patient was admitted to the hospitalist service. Hospital Course 80-year-old male admitted from home failing to thrive possibly antibiotic failure for UTI. Patient was brought to [facility] emergency room and was admitted to the hospital service. # UTI with sepsis-present on admission and ongoing secondary to Proteus species - We will continue On IV Rocephin day # 8 of 14 days therapy. - IV hydration # Pneumonia left lower lobe present on admission and ongoing, secondary to Proteus species -Continue Rocephin day #8 of 10-14 -Continue incentive spirometry -Repeat chest x-ray # Acute metabolic encephalopathy. Mental status appears to be back to baseline dementia. - Multifactorial, secondary to likely a combination of infection and/or dementia - Monitor and try and avoid medications that might exacerbate confusion # Acute renal failure present at the time of admission which appears to now be at baseline. -improved with IV hydration -We have obtained nephrology consultation with Dr. Honeycutt and have discussed the case with her. Her assessment and recommendations are as follows: "Acute kidney injury on chronic kidney disease stage 3. multifactorial: -Intravascular volume depletion, -ATN from ongoing infection, -Obstructive uropathy. Plan: d/c IVF, increase free water flushes 250 ml q 4 hr. keep reyes catheter. repeat CMP in am. replace PO4." Nephrology has since signed off. # Hyperkalemia secondary to acute renal failure - Received a dose of Kayexalate - Potassium continues to improve with IV hydration. # Diabetes with poor control on nondiabetic tube feeding now much better controlled -Accu-Cheks demonstrate blood glucose levels were out of control. I have asked nutritional services to change the tube feedings to Glucerna which he takes at home. -Blood sugars were over 400 before switching to Glucerna. After switching to Glucerna they improved markedly - HbA1c 8.4 -Continue Lantus 30 units subcutaneous daily at bedtime - Continue Lispro sliding scale # Dysphagia - Patient is nothing by mouth and appreciate nutrition consult for tube feeding recommendations - Patient is approved for a Pured diet. # C. difficile enterocolitis with diarrhea and leukocytosis -Start PO Flagyl -Start Lactinex for probiotic therapy # New onset leukocytosis with increasing white blood cell count secondary to C. difficile colitis -Stool is positive for C. difficile -The repeat urinalysis shows improvement since last urinalysis -Chest x-ray shows improvement in infiltrate left lower lobe # Disposition: patient has improved and will be discharged to [facility] today Exam Vital Signs (Last) Date Time Temp Pulse Resp B/P Pulse Ox O2 Delivery O2 Flow Rate FiO2 04/04/16 13:58 36.3 75 18 111/58 93 Room Air Exam General: Patient is in no apparent distress. He appears comfortable and is more interactive again today. He worked a little bit with physical therapy yesterday and is waiting for them today. He remains pleasantly confused HEENT: Head is atraumatic normocephalic. Eyes: Pupils are equally round and reactive to light and accommodation. Extraocular muscles are intact. Sclera are white anicteric. Subconjunctival mucosa is pink. Ears and nose are unremarkable. Oropharynx: There are no mucosal lesions, there is no thrush, there is no pharyngitis. Neck: Is supple, there are no nodes, or masses or tenderness. Chest: Remain clear to auscultation and percussion. There are no rales, rhonchi , wheezes or rubs. Heart: Rate, rhythm is regular. There is no new murmur, rub or gallop. Abdomen: Good bowel sounds are present. Abdomen is soft, nontender, no organomegaly or masses were appreciated. Feeding tube site is unremarkable. Extremities: Are symmetrical and well perfused. There is no edema, there is no cellulitis, no rash. Neurologic: There are no focal neurological deficits. Cranial nerves II through XII are intact. There are no sensory or motor deficits. Patient remains confused. Psychiatric: Patients mood is calm and shows no sign of agitation. However, he agrees to participate with physical therapy today. Genital: Deferred Rectal: Deferred Test 03/27/16 15:50 03/30/16 05:45 04/04/16 05:45 04/04/16 13:21 Hemoglobin A1c 8.4% (4.8-5.6) Lactic Acid Level 3.1mmol/L (0.4-2.0) Lipase 238U/L (13-60) Erythrocyte Sedimentation Rate > 140mm/hr (0-30) Phosphorus Level 2.3mg/dL (2.5-4.9) C-Reactive Protein 5.0mg/dL (0.0-0.5) Pro-B-Type Natriuretic Peptide 1826pg/mL (0-486) Prostate Specific Antigen <0.1ng/mL (0.0-4.0) Procalcitonin 0.18ng/mL (See Comment) White Blood Count 9.4th/mm3 (3.8-10.1) Red Blood Count 3.40mil/mm3 (4.40-5.80) Hemoglobin 10.1g/dL (13.8-17.2) Hematocrit 31.2% (41.0-50.0) Mean Corpuscular Volume 91.8fL (81-100) Mean Corpuscular Hemoglobin 29.7pg (27.0-35.0) Mean Corpuscular Hemoglobin Concent 32.4% (32.0-37.0) Red Cell Distribution Width 12.9% (12.3-15.4) Platelet Count 285bil/L (150-400) Neutrophils (%) (Auto) 66.3% (40-74) Lymphocytes (%) (Auto) 17.4% (14-46) Monocytes (%) (Auto) 10.7% (4-12) Eosinophils (%) (Auto) 4.2% (0-5) Basophils (%) (Auto) 0.4% (0-3) Sodium Level 136mEq/L (134-144) Potassium Level 4.7mEq/L (3.5-5.2) Chloride Level 98mEq/L (97-108) Carbon Dioxide Level 28mmol/L (18-29) Blood Urea Nitrogen 44mg/dL (8-27) Creatinine 1.73mg/dL (0.76-1.27) Estimat Glomerular Filtration Rate 41mL/min (>59) Glucose Level 226mg/dL (60-99) Calcium Level 8.8mg/dL (8.5-10.1) Magnesium Level 1.9mg/dL (1.6-2.6) Total Bilirubin 0.2mg/dL (0.0-1.2) Aspartate Amino Transf (AST/SGOT) 16U/L (0-50) Alanine Aminotransferase (ALT/SGPT) 13U/L (0-44) Alkaline Phosphatase 58U/L (25-160) Total Protein 6.7g/dL (6.4-8.4) Albumin 2.6g/dL (3.4-5.0) Urine Color Straw (YELLOW) Urine Appearance Hazy (CLEAR,HAZY) Urine pH 7.0 (5.0-8.0) Urine Specific [place] 1.010 (1.003-1.035) Urine Protein 30mg/dL (NEG,TRACE) Urine Glucose (UA) 250mg/dL (NEGATIVE) Urine Ketones Negativemg/dL (NEGATIVE) Urine Occult Blood Large (NEGATIVE) Urine Nitrite Negative (NEGATIVE) Urine Bilirubin Negative (NEGATIVE) Urine Urobilinogen Normalmg/dL (NORMAL) Urine Leukocyte Esterase Moderate (NEGATIVE) Urine RBC 11-50/hpf (0-2) Urine WBC 11-50/hpf (0-5) Urine Epithelial Cells Occasional/hpf (NONE-MOD) Urine Crystals None seen (NONE SEEN) Urine Bacteria None/hpf (NONE-FEW) Urine Hyaline Casts None/lpf (NONE) Urine Granular Casts None seen (NONE SEEN) Urine Waxy Casts None seen (NONE SEEN) Urine Red Blood Cell Casts None seen (NONE SEEN) Urine White Blood Cell Casts None seen (NONE SEEN) Urine Mucus None seen (None Seen) Urine Trichomonas None seen (NONE SEEN) Urine Yeast None (NONE SEEN) Urinalysis Comment None Urine Culture Reflexed Indicated Microbiology Results Name: RAF KAPLAN Age/Sex: 80/M Attend Dr: Pa French MD Acct: [id number] Unit: [id number] Status: ADM IN [place] [facility]1 Re03/27/16 Disch: Specimen: [id number] Collected: 03/27/16 Status: SARAH Dixon#: [id number] Received: 03/27/16 Source: URINE CC Sp Desc : EUNICE Albright Dr: DOC,ED MD Ordered: URINE CULT Procedure Result Verified Site Microbiology YEIMY CULT URINE Final 03/29/16 Organism 1 PROTEUS MIRABILIS U COLONY COUNT/QUANTITY >100,000 CFU/ml Cefazolin-predicts results for the oral agents, cefaclor,cefdinir, cefpodoximen, cefprozil, cefuroximne axetil, cephalexin and loracarbed when used for therapy of uncomplicated UTI's due to E. coli, K. pneumoniae, and Proteus mirabilis. Cefpodoxime, cefdinir and cefuroxime axetil may be tested individually because some isolates may be susceptible to these agents while testing resistant to cefazolin. (CLSI U405-X36 pg 53) 1. PROTEUS MIRABILIS M.I.C Interp --------- ------ * AMPICILLIN >=32 R * CEFAZOLIN (CEPHALOSPORIN) UTI 8 S * CEFEPIME <=1 S * CEFTRIAXONE <=1 S * CEFUROXIME SODIUM 2 S * CIPROFLOXACIN >=4 R * ERTAPENEM <=0.5 S * GENTAMICIN >=16 R * LEVOFLOXACIN >=8 R * NITROFURANTOIN 128 R * TETRACYCLINE >=16 R * TOBRAMYCIN >=16 R * TRIMETHOPRIM/SULFAMETHOXAZOLE >=320 R Name: RAF KAPLAN Age/Sex: 80/M Attend Dr: Pa French MD Acct: [id number] Unit: [id number] Status: ADM IN [place] [facility]-1 Re03/27/16 Disch: Specimen: [id number] Collected: 03/28/16 Status: COMP Req#: [id number] Received: 03/28/16 Source: SPUTUM EXP Sp Desc : Subm Dr: Reyes Olivia MD Ordered: GRAM SPT REFLEX, SPUTUM CULTURE Comments: Collected by Nurse/Unit? Y/N Y Comment: SPECIMEN IN LAB Procedure Result Verified Site Microbiology YEIMY CULT SPUTUM GS Final 03/28/16-9212 SPT GRAM STAIN NO POLYS SEEN RARE EPITHELIAL CELLS MANY MIXED NORMAL ALEYDA This Spec is of good Quality and acceptable for Cult RESPIRATORY CULTURE Final 03/30/16-1010 Organism 1 PROTEUS MIRABILIS COLONY COUNT/QUANTITY MODERATE GROWTH Organism 2 WITH NORMAL ALEYDA COLONY COUNT/QUANTITY LIGHT GROWTH 1. PROTEUS MIRABILIS M.I.C Interp --------- ------ * AMIKACIN <=2 S * AMPICILLIN >=32 R * AMPICILLIN/SULBACTAM >=32 R * CEFAZOLIN 8 R * CEFEPIME <=1 S * CEFOXITIN 8 S * CEFTRIAXONE <=1 S * ERTAPENEM <=0.5 S * GENTAMICIN >=16 R * MEROPENEM 0.5 S * TOBRAMYCIN >=16 R * TRIMETHOPRIM/SULFAMETHOXAZOLE >=320 R * PIPERACILLIN/TAZOBACTAM <=4 S Discharge Medications Discharge Medications ([Lactobacillus Acidophilus]) 1 TABLET TABLET 2 TABLET PO PCHS Prescribed by: DEBBIE CROWLEY MD Ceftriaxone Na/Dextrose,Iso (Ceftriaxone 2 gm-D5w Bag) 2 Gm/50 Ml Piggyback 2 GM IV DAILY Prescribed by: DEBBIE CROWLEY MD Ezetimibe/Simvastatin 10-80 mg (Vytorin 10-80 mg) 1 Each Tablet 1 TABLET PO DAILY (Reported) Famotidine (Pepcid) 20 Mg Tablet 20 MG PO BID Prescribed by: JOSETTE PINK MD Glipizide ER (Glipizide ER) 10 Mg Tab.er.24 10 MG PO BID (Reported) Heparin Sodium,Porcine (Heparin Sodium) 5,000 Unit/1 Ml Vial 5,000 UNIT SUBQ Q8 Prescribed by: DEBBIE CROWLEY MD Insulin Glargine (Lantus U100 Insulin Vial) 100 Unit/Ml Vial 30 UNIT SUBQ HS Prescribed by: DEBBIE CROWLEY MD Insulin Human Lispro (HumaLOG U100 Insulin Vial) 100 Unit/Ml Unit 0 UNIT SUBQ WMHS Check blood sugars before meals and at bedtime. Use correction factor only before meals. Blood Sugar Lispro Correction: <151, 0 units; 151-175, 1 unit; 176-200, 2 units; 201-225, 3 units; 226-250, 4 units; 251-275, 5 units; 276-300 , 6 units; 301-325, 7 units; 326-350, 8 units; 351-375, 9 units; 376-400, 10 units; >400, 12 units. Prescribed by: DEBBIE CROWLEY MD Labetalol (Labetalol) 100 Mg Tablet 100 MG PO BID Prescribed by: JOSETTE PINK MD Metronidazole (Flagyl) 500 Mg Tablet 500 MG PO Q8 Prescribed by: DEBBIE CROWLEY MD Nystatin (Nystatin) 60 Applic/15 Gm Cream 1 APPLIC TOPICAL BID Prescribed by: DEBBIE CROWLEY MD Tamsulosin (Flomax) 0.4 Mg Capsule 0.4 MG PO DAILY Prescribed by: JOSETTE PINK MD Trazodone (Trazodone) 50 Mg Tablet 50 MG PO HS Prescribed by: JOSETTE PINK MD As needed Insulin Lispro (HumaLOG U100 Insulin Cartridge Refill) 100 Unit/1 Ml Cartridge 1 UNIT SUBQ TIDWM PRN PRN BLOOD GLUCOSE (Reported) Blood Sugar Lispro Correction <151 0 units 151-175 1 unit 176-200 2 units 201-225 3 units 226-250 4 units 251-275 5 units 276-300 6 units 301-325 7 units 326-350 8 units 351-375 9 units 376-400 10 units >400 12 units Check blood sugars before meals and at bedtime. Use correction factor only before meals. Ipratropium/Albuterol Sulfate (Iprat-Albut 0.5-3(2.5) mg/3 mL Inhalant Soln) 3 Ml Ampul.neb 3 ML IH Q6 PRN PRN For Wheezing (Reported) Followup Plan Disposition: Patient is being discharged to [facility] Discharge Diet: Diabetic, Other (Diabetic Pureed as tolerated in addition to Glucerna Tube Feedings) Discharge Activity: Other (As per ) Follow-up Provider: Roscoe Lynch MD Follow-up with PCP in: 1 week Time spent Time spent on discharging this patient was greater than 35 minutes , over half of which was involved in counseling and coordination of care. Brown Crowley MD Apr 04, 2016 23:44
== END 2016-04-04 17:48 | DRG 871 ==
LOC: SED 13:25 → OSC 17:08 → MPC 19:14
PROVIDERS: ADMIT Hospitalist; ATTEND Hospitalist
DX: A41.4 Sepsis due to anaerobes (principal); J15.8 Pneumonia due to other specified bacteria; G93.41 Metabolic encephalopathy; N17.0 Acute kidney failure with tubular necrosis; N39.0 Urinary tract infection, site not specified; A04.7 Enterocolitis due to Clostridium difficile; B96.4 Proteus (mirabilis) (morganii) as the cause of diseases classified elsewhere; N18.3 Chronic kidney disease, stage 3 (moderate); E11.9 Type 2 diabetes mellitus without complications; I12.9 Hypertensive chronic kidney disease with stage 1 through stage 4 chronic kidney disease, or unspecified chronic kidney disease; J44.9 Chronic obstructive pulmonary disease, unspecified; Z87.891 Personal history of nicotine dependence; E87.5 Hyperkalemia; R13.10 Dysphagia, unspecified

== ENCOUNTER 2016-06-13 14:56 | Inpatient (IN) | payer MEDICARE ==
[2016-06-13] VITALS (8 sets, daily range): BP systolic 100–159; BP diastolic 59–91; PULSE 78–126; RESP 19–44; O2SAT 94–100
[~2016-06-13] VITALS: Ht 172.7 cm; Wt 65.9 kg
[~2016-06-13 14:56] MED LIST changes: +CEFT2PIG IV; +HEPA500017 SUBQ; +INSLIS SUBQ; +INSU100V7 SUBQ; +Lactobacillus Acidophilus PO; +METR500T PO; +MYCC TOPICAL
--- NOTE | 2016-06-13 15:02 | ED.REPORT ---
HPI-Dyspnea / Wheezing Date of Service Jun 13, 2016 ED Provider: Bowen Trinidad MD 81 year old male with a history of COPD, daibetes, and HTN presents to the ER via EMS accompanied by his due to acute on chronic shortness of breath, worsening markedly today. also reports fever, . Patient denies chest pain, and any other symptoms. 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 He was then placed in [facility] rehabilitation until May 2016. Nursing Notes Stated Complaint: SHORTNESS OF BREATH Nursing Notes Reviewed: Yes Allergies: Coded Allergies: No Known Allergies (Verified , 06/13/16) Scheduled ([Lactobacillus Acidophilus]) 1 TABLET TABLET 2 TABLET PO PCHS Ezetimibe/Simvastatin 10-80 mg (Vytorin 10-80 mg) 1 Each Tablet 1 TABLET PO HS Famotidine (Pepcid) 20 Mg Tablet 20 MG PO BID Glipizide ER (Glipizide ER) 10 Mg Tab.er.24 10 MG PO BIDWM Insulin Glargine (Lantus U100 Insulin Vial) 100 Unit/Ml Vial 30 UNIT SUBQ HS Insulin Human Lispro (HumaLOG U100 Insulin Vial) 100 Unit/Ml Unit 1-12 UNIT SUBQ ACHS Check blood sugars before meals and at bedtime. Use correction factor only before meals. Blood Sugar Lispro Correction: <151, 0 units; 151-175, 1 unit; 176-200, 2 units; 201-225, 3 units; 226-250, 4 units; 251-275, 5 units; 276-300 , 6 units; 301-325, 7 units; 326-350, 8 units; 351-375, 9 units; 376-400, 10 units; >400, 12 units. Tamsulosin (Flomax) 0.4 Mg Capsule 0.4 MG PO HS Scheduled PRN Ipratropium/Albuterol Sulfate (Iprat-Albut 0.5-3(2.5) mg/3 mL Inhalant Soln) 3 Ml Ampul.neb 3 ML IH Q6 PRN PRN For Wheezing Nystatin (Nystatin) 60 Applic/15 Gm Cream 1 APPLIC TOP BID PRN PRN RASH General Time Seen by MD: 15:01 Chief Complaint Shortness of breath Hx Obtained From: Patient, Spouse Arrived By: Walk-in Sudden in Onset?: No Onset Occurred: Yesterday Symptom Duration: Since onset Location: : None Associated with: Reports: Cough, Fever Pertinent Negative: Pt denies other symptoms Context Related History: Reports: COPD, Pneumonia Similar Sx Previous: Yes Past Medical History Past Medical History Notes: Patient admitted November 11-2015 for acute respiratory failure with hypercapnia requiring intubation, Haemophilus pneumonia and septic shock Past Medical History Admitted for acute respiratory failure with hypercapnia with COPD exacerbation 11/2015 My office pneumonia 11/2015 Septic shock requiring pressor use secondary to Haemophilus pneumonia 11/2015 Prostate cancer Acute kidney and injury on chronic kidney disease secondary to sepsis 11/20/2015 Diabetes Urinary retention Hearing loss. HLD. CKD stage III. Reports: COPD, Cancer, Diabetes mellitus, Hypertension Past Surgical History Reports: Appendectomy, Inguinal hernia repair, Prostatectomy, Tonsillectomy Smoking History Former Smoker Social History Resides at [facility] Alcohol Use: Denies alcohol use Ambulatory Status Independent Review of Systems Constitutional: Reports: Fever, Denies: Chills Respiratory: Reports: Non-productive cough, Shortness of breath Cardiovascular: Denies: Chest pain Musculoskeletal: Denies: Back pain, Extremity pain, Joint pain, Lumbar pain, Neck pain, Thoracic pain Complete sys rev & neg: except as marked. Physical Exam Initial Vital Signs Vital Signs (First) Date Time Temp Pulse Resp B/P Pulse Ox O2 Delivery O2 Flow Rate FiO2 06/13/16 15:06 35.8 126 44 159/78 97 Nasal Cannula 06/13/16 15:18 2 Initial VS: Reviewed Head / Eyes: Atraumatic, Normocephalic Abdomen / GI: Soft, Non-tender, No guarding, No rebound, No distention Extremities: Vascular intact, Neuro intact, No swelling, No tenderness Skin: Warm, Dry, No cyanosis Neurologic: Alert, Oriented, Nonfocal Respiratory / Chest: No chest tenderness, No chest wall deformity Wheezing / Retractions: Positive: Wheeze insp/exp diffuse Increased work of breathing. Cardiovascular: Regular rhythm, Heart sounds NL, Peripheral circulation NL Heart Rate / Rhythm: Positive: Tachycardia Interpretation & Diagnostics Lab Results Interpretation Result Diagram: 06/13/16 1500 06/13/16 1500 Test 06/13/16 15:00 White Blood Count 13.0th/mm3 (3.8-10.1) Red Blood Count 4.32mil/mm3 (4.40-5.80) Hemoglobin 13.0g/dL (13.8-17.2) Hematocrit 40.6% (41.0-50.0) Mean Corpuscular Volume 94.0fL (81-100) Mean Corpuscular Hemoglobin 30.1pg (27.0-35.0) Mean Corpuscular Hemoglobin Concent 32.0% (32.0-37.0) Red Cell Distribution Width 13.8% (12.3-15.4) Platelet Count 222bil/L (150-400) Neutrophils (%) (Auto) 78.8% (40-74) Lymphocytes (%) (Auto) 8.6% (14-46) Monocytes (%) (Auto) 11.7% (4-12) Eosinophils (%) (Auto) 0.1% (0-5) Basophils (%) (Auto) 0.6% (0-3) Prothrombin Time 10.4sec (8.1-12.5) Prothromb Time International Ratio 0.97ratio D-Dimer 0.8mg/L (<0.50) Sodium Level 137mEq/L (134-144) Potassium Level 5.9mEq/L (3.5-5.2) Chloride Level 96mEq/L (97-108) Carbon Dioxide Level 23mmol/L (18-29) Blood Urea Nitrogen 83mg/dL (8-27) Creatinine 4.17mg/dL (0.76-1.27) Estimat Glomerular Filtration Rate 15mL/min (>59) Glucose Level 252mg/dL (60-99) Lactic Acid Level 2.3mmol/L (0.4-2.0) Calcium Level 9.6mg/dL (8.5-10.1) Total Bilirubin 0.5mg/dL (0.0-1.2) Aspartate Amino Transf (AST/SGOT) 24U/L (0-50) Alanine Aminotransferase (ALT/SGPT) 25U/L (0-44) Alkaline Phosphatase 75U/L (25-160) Troponin T 0.212ug/L (0.0-0.011) Pro-B-Type Natriuretic Peptide 2039pg/mL (0-486) Total Protein 9.3g/dL (6.4-8.4) Albumin 3.7g/dL (3.4-5.0) Procalcitonin 0.24ng/mL (0.00-0.08) ECG Interpretation ECG Interpretation: Sinus tachycardia, rate 118 Time: 15:28 Interpreted by: ED physician X-Ray Chest Interpretation Chest Xray Interpretation: IMPRESSION: Unchanged costophrenic angle blunting, likely related to scarring. Dictated by: Paula Chisholm M.D. on 06/13/2016 at 15:20 Approved by: Paula Chisholm M.D. on 06/13/2016 at 15:21 View: Portable, 1 view Interpretation / Wet Read by: Interpret - Radiologist Re-Eval/Medical Decision Med Decision/Clinical Course 81-year-old male history of CK D, COPD, G-tube, history of UTIs presenting with weakness today per family. Also shortness breath. Patient was satting mid 80s on arrival. Was given one nebulizer and his oxygen improved significantly to low 90s requiring 2 L. He has had a chronic cough productive of yellow sputum. Her blood cell count is 13,000. Urine dip with UTI. Afebrile here with stable blood pressures. Troponins are elevated 0.1. Patient with tachycardia possibly demand ischemia. Acute kidney injury creatinine is 4 baseline 2. Patient will be admitted for DEMETRI, UTI, COPD exacerbation, elevated troponins. Given steroids, zosyn. Admitted to hospitalist. Source of Hx: Old records Re-Evaluation/Progress #1: Time of Eval: 16:18 Re-Evaluation/Progress Note: Discussed lab and radiology results and need for admission. Patient and family are amenable to the plan. All other questions addressed. Code status: DNAR, DNI Re-Evaluation/Progress #2: Time of Eval: 17:00 Re-Evaluation/Progress Note: Completed physical examination. Mild erythema, no decubitus ulcer. Consultation : Referral / Consult Name: Mario Healy MD Consulted With: Hospitalist Call Returned at: 17:28 Cotton Wringer: Agrees with eval, Agrees with plan, Accepts admit Counseled Regarding: Diagnosis, Lab results, Need for admission Discharge & Departure Impression: Primary Impression: COPD exacerbation Additional Impressions: Acute kidney injury Elevated troponin Sepsis UTI (urinary tract infection) Disposition: ADMITTED TO HOSPITAL Discharge Condition All VS Reviewed: Yes Condition: Stable Referrals: Roscoe Lynch MD (PCP) Jaquan Attestation Portions of this note were transcribed by Tiara Flores. I, Dr. Trinidad, personally performed the history, physical exam and medical decision-making; I reviewed and confirmed the accuracy of the information in the transcribed note. Signed by: Jaquan Fontaine, 06/13/2016 and 17:41 copies to: Roscoe Lynch MD, Ben M MD Jun 13, 2016 15:01 TIARA FLORES Jun 13, 2016 15:09
[2016-06-13] MEDS ORDERED: Albuterol-Ipratropium 3 mL Inhalation Solution NEB ONE (15:05)
[2016-06-13] MEDS ORDERED: MethylprednisoLONE Sodium Succinate 62.5 mg/mL 2 mL Inj IVPUSH ONE (15:05)
[2016-06-13] MEDS ORDERED: 0.9% Sodium Chloride 500 ML IV ONE (15:05)
[2016-06-13] MEDS ORDERED: Albuterol-Ipratropium 3 mL Inhalation Solution ONE (15:07)
[2016-06-13 15:17] LABS: BASOPHILS % (AUTO) 0.6 % (0-3); EOSINOPHILS % (AUTO) 0.1 % (0-5); MONOCYTES % (AUTO) 11.7 % (4-12); Mean Corpuscular Hemoglobin 30.1 pg (27.0-35.0); NEUTROPHILS % (AUTO) 78.8 % (40-74); Platelet Count 222 bil/L (150-400)
--- NOTE | 2016-06-13 15:23 | DRSVH ---
PROCEDURE: X-RAY CHEST ONE VIEW, PORTABLE ([id number]) INDICATIONS: dyspnea TECHNIQUE: One view of the chest was acquired. COMPARISON: [facility], CR, XR CHEST 1VW (PORTABLE), 11/17/2015, 5:25. [facility], CR, XR CHEST 1VW (PORTABLE), 04/04/2016, 14:02. FINDINGS: Surgical changes and devices: Metallic densities are noted overlying the left hemithorax. Lungs and pleura: There is unchanged appearance of blunting within the left costophrenic angle. Mediastinum: Mediastinal contours appear normal. Heart size is normal. Bones and chest wall: No suspicious bony lesions. Overlying soft tissues appear unremarkable. IMPRESSION: Unchanged costophrenic angle blunting, likely related to scarring. Dictated by: Paula Chisholm M.D. on 06/13/2016 at 15:20 Approved by: Paula Chisholm M.D. on 06/13/2016 at 15:21
[2016-06-13 15:48] LABS: D-DIMER 0.8 mg/L (<0.50); INR 0.97 ratio
[2016-06-13 16:04] LABS: TROPONIN T 0.212 ug/L (0.0-0.011)
[2016-06-13] MEDS ORDERED: TAMS0.4C98 PO (17:10)
[2016-06-13] MEDS ORDERED: INSLIS SUBQ (17:11)
[2016-06-13] MEDS ORDERED: MYCC TOP (17:13)
[2016-06-13] MEDS ORDERED: 0.9% Sodium Chloride 1,000 ML IV ONE (17:32)
[2016-06-13] MEDS ORDERED: Piperacillin-Tazo 3.375 Gm Inj 3.375 GM in Dextrose 5% Minibag Plus 50 ML IV ONE (17:35)
[2016-06-13] MEDS ORDERED: Alum-Mag Hydrox-Simeth 30 mL Suspension PO PRN (17:45)
[2016-06-13] MEDS ORDERED: Ondansetron 2 mg/mL 2 mL Inj IVPUSH PRN ×2 (17:45→17:55)
[2016-06-13] MEDS: 0.9% Sodium Chloride 1,000 ML IV SCH (17:54)
[2016-06-13] MEDS ORDERED: Lactated Ringer's 1,000 ML IV PRN (17:54)
[2016-06-13] MEDS: Lactated Ringer's 1,000 ML IV SCH (17:54)
[2016-06-13] MEDS ORDERED: Albuterol-Ipratropium 3 mL Inhalation Solution NEB PRN (17:55)
[2016-06-13] MEDS ORDERED: cefTRIAXone Inj 1,000 MG in Dextrose 5% Minibag Plus 50 ML IV SCH ×2 (18:15→18:27)
[2016-06-13 18:27] LABS: APPEARANCE,URINE CLOUDY (CLEAR,HAZY); COLOR,URINE DARK YELLOW (YELLOW); PH,URINE 8.5 (5.0-8.0)
[2016-06-13 18:28] LABS: OCCULT BLOOD,URINE LARGE (NEGATIVE); UROBILINOGEN,URINE NORMAL (NORMAL)
--- NOTE | 2016-06-13 20:06 | PCM.HPMED ---
Subjective Date of Service Jun 13, 2016 Primary Provider: Admitting Physician: Mario Healy MD Primary Care Physician: Roscoe Lynch MD Attending Physician: Mario Healy MD Chief Complaint: shortness of breath. AMS History of Present Illness: Information are obtained form the chart and as per my conversation with the ER physician. Patient is very Drowsy and I am unable to interview his at this time . 81 year old male with a history of COPD, diabetes, and HTN presents to the ER via EMS accompanied by his due to acute on chronic shortness of breath, worsening markedly today. also reports fever, . Patient denies chest pain, and any other symptoms. 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 He was then placed in [facility] rehabilitation until May 2016. Review of Systems: Review of system cannot be obtained at this time . Patient is very drowsy and cannot be interviewed Allergies Coded Allergies: No Known Allergies (Verified , 06/13/16) Home Medications [Lactobacillus Acidophilus]) 1 TABLET TABLET 2 TABLET PO PCHS Ezetimibe/Simvastatin 10-80 mg (Vytorin 10-80 mg) 1 Each Tablet 1 TABLET PO HS Famotidine (Pepcid) 20 Mg Tablet 20 MG PO BID Glipizide ER (Glipizide ER) 10 Mg Tab.er.24 10 MG PO BIDWM Insulin Glargine (Lantus U100 Insulin Vial) 100 Unit/Ml Vial 30 UNIT SUBQ HS Insulin Human Lispro (HumaLOG U100 Insulin Vial) 100 Unit/Ml Unit 1-12 UNIT SUBQ ACHS Check blood sugars before meals and at bedtime. Use correction factor only before meals. Blood Sugar Lispro Correction: <151, 0 units; 151-175, 1 unit; 176-200, 2 units; 201-225, 3 units; 226-250, 4 units; 251-275, 5 units; 276-300 , 6 units; 301-325, 7 units; 326-350, 8 units; 351-375, 9 units; 376-400, 10 units; >400, 12 units. Tamsulosin (Flomax) 0.4 Mg Capsule 0.4 MG PO HS Scheduled PRN Ipratropium/Albuterol Sulfate (Iprat-Albut 0.5-3(2.5) mg/3 mL Inhalant Soln) 3 Ml Ampul.neb 3 ML IH Q6 PRN PRN For Wheezing Nystatin (Nystatin) 60 Applic/15 Gm Cream 1 APPLIC TOP BID PRN PRN RASH PMH Admitted for acute respiratory failure with hypercapnia with COPD exacerbation 11/2015 My office pneumonia 11/2015 Septic shock requiring pressor use secondary to Haemophilus pneumonia 11/2015 Prostate cancer Acute kidney and injury on chronic kidney disease secondary to sepsis 11/20/2015 Diabetes Urinary retention Hearing loss. HLD. CKD stage III. Reports: COPD, Cancer, Diabetes mellitus, Hypertension Surgical History Appendectomy, Inguinal hernia repair, Prostatectomy, Tonsillectomy Family History Unable to obtain Social History Hx Alcohol Use: No Hx Substance Use: No Hx Tobacco Use: No Smoking Status: Former Smoker Living Arrangement: with Family ( is care givers. Patient is recently discharge from [facility]) Exam Vital Signs Vital Sign - Last Date Time Temp Pulse Resp B/P Pulse Ox O2 Delivery O2 Flow Rate FiO2 06/13/16 18:37 95 19 100/59 97 Simple Mask 2 06/13/16 16:55 36.4 Exam General : Ill appearing male , in bed comfortably. Somnolent and confused . NAD HEENT : Natalio, Sclerae is anicteric. Head is atraumatic Neck : Supple, no JVD, trachea is midline Chest : Normal respiratory effort .No cehst wall tenderness, no defromity Lung : B/L wheezing. No crackles Abdomen : Soft, non tender, mildly distended. PEG tube in place Extremity : No edema, No cyanosis , no calf tenderness : Morton catheter in place yielding purulent urine Neuro : Confused. Patient moves all extremities . Lab and Diagnostics Result Diagram: 06/13/16 1500 06/13/16 1500 X-Rays, CTs and MRIs Chest X-ray reviewed : Unchanged costophrenic angle blunting, likely related to scarring Assessment & Plan 1. Sepsis : Source likely UTI Hemodynamically stable. Blood pressure in the 120 systolic IVF : NS at 100 ml/hr . Monitor electrolytes and renal function closely Start Ceftriaxone 1 gr IV daily . Received one dose of Zosyn in the ER Blood culture, urine cultures . procalcitonin ' 2 . COPD exacerbation Nebulizer. bronchodilators , supplemental oxygen. Chest X-ray shows no pneumonia Start prednisone 40 mg PO daily 3.Renal Failure : Acute on chronic. ( H/o Stage III CKD) Likely due to UTI and pre-renal azotemia . IVF : NS @ 100 ml/hr. Monitor renal function and electrolytes BMP in AM . Consider nephrology evaluation with no improvement 4. UTI : as in # 1 Chronic Medical problems : COPD Prostate Cancer Hypertension Diabetes Urinary retention Hearing loss CKD stage III. This is a very sick patient , discharged one month ago from rehab and brought in to ER by families due to AMS and SOB. Patient is septic with UTI likely the source . Plan of care as above and will be adjusted per clinical course . Will consult ID for further guidance about antibiotics \ Home medications reviewed and reconciled . Nutrition consulted about peg feeding. Patient is DNT /DNI .Hospital stay of 45 days is anticipated , recovery is expected VTE Prophylaxis: Sub-Q Heparin (Unfractionated) Resuscitation Status: DNR/DNI:Do Not Resuscitate/Intubate Time spent 75 minutes Mario Healy MD Jun 13, 2016 20:06
[2016-06-13] MEDS ORDERED: predniSONE 20 mg Tablet PO SCH (20:30)
[2016-06-13] MEDS: Insulin Human REGular 300 Unit/3 mL Inj SUBQ SCH (20:30)
[2016-06-13] MEDS: Heparin 5,000 Unit/mL Inj SUBQ SCH (22:52)
[2016-06-14] VITALS (9 sets, daily range): BP systolic 94–162; BP diastolic 46–78; PULSE 66–83; RESP 16–23; O2SAT 91–97
[2016-06-14] MEDS ORDERED: Insulin Human REGular-Omnicell 100 Unit/mL ONE (00:22)
[2016-06-14] MEDS ORDERED: Sodium Bicarb (50 mEq) 8.4% 1 mEq/mL 50 mL Syringe ONE (00:27)
[2016-06-14] MEDS ORDERED: Albuterol 2.5 mg/3 mL Inhalation Solution NEB PRN (00:30)
[2016-06-14] MEDS ORDERED: MethylprednisoLONE Sodium Succinate 40 mg/mL Inj IVPUSH SCH (00:30)
[2016-06-14] MEDS: Lactated Ringer's 1,000 ML IV SCH ×2 (00:34→07:14)
[2016-06-14] MEDS: 0.9% Sodium Chloride 1,000 ML IV SCH ×4 (00:34→20:34)
[2016-06-14] MEDS ORDERED: Insulin Human REGular 300 Unit/3 mL Inj IV ONE (00:35)
[2016-06-14] MEDS ORDERED: Sodium Bicarb (50 mEq) 8.4% 1 mEq/mL 50 mL Syringe IVPUSH ONE (00:35)
--- NOTE | 2016-06-14 00:38 | PCM.PNMED ---
Subjective Date of Service Jun 14, 2016 Subjective Asked to see patient for lethargy. Exam Vital Signs Vital Sign - Last Date Time Temp Pulse Resp B/P Pulse Ox O2 Delivery O2 Flow Rate FiO2 06/14/16 00:04 36.1 74 20 132/78 94 OxyMask 2.00 Intake and Output 06/13/16 06/13/16 06/14/16 Cumulative From/Thru 15:00 23:00 07:00 06/13/16 15:06 - 06/13/16 20:17 Intake Total 1500 ml 1500 ml Balance 1500 ml 1500 ml Intake IV Total 1500 ml 1500 ml Exam Constitutional: Elderly male who is quite lethargic and does respond to some painful stimuli. Does not respond to any verbal commands Head: Normocephalic atraumatic Eyes: Right pupil is pinpoint left is not and left does respond to light Mouth: Dry mucosa Chest: Decreased breath sounds at his bases with diffuse rhonchi Cor: Regular rate and rhythm S1-S2 Abdomen: Soft nontender bowel sounds present Extremities: Trace bilateral pedal edema Neuro: Drowsy, does response to some painful stimuli does not respond to voice , does move all extremities(according to ER and admission note patient was lethargic down in the ER Lab and Diagnostics Laboratory Tests 72 Hours Test 06/13/16 15:00 06/13/16 15:06 06/13/16 18:15 06/14/16 00:27 White Blood Count 13.0th/mm3 (3.8-10.1) Red Blood Count 4.32mil/mm3 (4.40-5.80) Hemoglobin 13.0g/dL (13.8-17.2) Hematocrit 40.6% (41.0-50.0) Mean Corpuscular Volume 94.0fL (81-100) Mean Corpuscular Hemoglobin 30.1pg (27.0-35.0) Mean Corpuscular Hemoglobin Concent 32.0% (32.0-37.0) Red Cell Distribution Width 13.8% (12.3-15.4) Platelet Count 222bil/L (150-400) Neutrophils (%) (Auto) 78.8% (40-74) Lymphocytes (%) (Auto) 8.6% (14-46) Monocytes (%) (Auto) 11.7% (4-12) Eosinophils (%) (Auto) 0.1% (0-5) Basophils (%) (Auto) 0.6% (0-3) Prothrombin Time 10.4sec (8.1-12.5) Prothromb Time International Ratio 0.97ratio D-Dimer 0.8mg/L (<0.50) Sodium Level 137mEq/L (134-144) Potassium Level 5.9mEq/L (3.5-5.2) Chloride Level 96mEq/L (97-108) Carbon Dioxide Level 23mmol/L (18-29) Blood Urea Nitrogen 83mg/dL (8-27) Creatinine 4.17mg/dL (0.76-1.27) Estimat Glomerular Filtration Rate 15mL/min (>59) Glucose Level 252mg/dL (60-99) Lactic Acid Level 2.3mmol/L (0.4-2.0) Calcium Level 9.6mg/dL (8.5-10.1) Total Bilirubin 0.5mg/dL (0.0-1.2) Aspartate Amino Transf (AST/SGOT) 24U/L (0-50) Alanine Aminotransferase (ALT/SGPT) 25U/L (0-44) Alkaline Phosphatase 75U/L (25-160) Troponin T 0.212ug/L (0.0-0.011) Pro-B-Type Natriuretic Peptide 2039pg/mL (0-486) Total Protein 9.3g/dL (6.4-8.4) Albumin 3.7g/dL (3.4-5.0) Procalcitonin 0.24ng/mL (0.00-0.08) Prealbumin 19mg/dL (20-40) Urine Color Dark yellow (YELLOW) Urine Appearance Cloudy (CLEAR,HAZY) Urine pH 8.5 (5.0-8.0) Urine Specific [place] 1.020 (1.003-1.035) Urine Protein 100mg/dL (NEG,TRACE) Urine Glucose (UA) Negativemg/dL (NEGATIVE) Urine Ketones Negativemg/dL (NEGATIVE) Urine Occult Blood Large (NEGATIVE) Urine Nitrite Positive (NEGATIVE) Urine Bilirubin Negative (NEGATIVE) Urine Urobilinogen Normalmg/dL (NORMAL) Urine Leukocyte Esterase Large (NEGATIVE) Urine RBC 3-10/hpf (0-2) Urine WBC >50/hpf (0-5) Urine Epithelial Cells Occasional/hpf (NONE-MOD) Urine Crystals None seen (NONE SEEN) Urine Bacteria Many/hpf (NONE-FEW) Urine Hyaline Casts None/lpf (NONE) Urine Granular Casts None seen (NONE SEEN) Urine Waxy Casts None seen (NONE SEEN) Urine Red Blood Cell Casts None seen (NONE SEEN) Urine White Blood Cell Casts None seen (NONE SEEN) Urine Mucus None seen (None Seen) Urine Trichomonas None seen (NONE SEEN) Urine Yeast None (NONE SEEN) Urinalysis Comment None Urine Culture Reflexed Indicated Result Diagram: 06/13/16 1500 06/13/16 1500 X-Rays, CTs and MRIs Chest X-ray reviewed : Unchanged costophrenic angle blunting, likely related to scarring Assessment & Plan 1. Sepsis : Source likely UTI Hemodynamically stable. Blood pressure in the 120 systolic IVF : NS at 100 ml/hr . Monitor electrolytes and renal function closely We will DC Rocephin and placed on IV Zosyn to also cover possible aspiration pneumonia given his significant lethargy and risk of aspiration Blood culture, urine cultures . procalcitonin ' 2 . COPD exacerbation Nebulizer. bronchodilators , supplemental oxygen. We will change to DuoNeb's every 6 hours and albuterol nebs every 2 hours when necessary We will place on supplemental O2 Chest X-ray shows no pneumonia , we will check repeat chest x-ray in the a.m. after IV fluid hydration We will switch to IV Solu-Medrol as patient is not able to tolerate by mouth at this time given his significant acute encephalopathy Have gotten stat ABG which does not reveal significant hypercapnia but does reveal hypoxia 3.Renal Failure : Acute on chronic. ( H/o Stage III CKD) Likely due to UTI and pre-renal azotemia . IVF : NS @ 100 ml/hr. Monitor renal function and electrolytes BMP in AM . Consider nephrology evaluation with no improvement 4. UTI : as in # 1 5. Hyperkalemia secondary to renal failure, acute, present on admission We will go ahead and give one ampule IV sodium bicarbonate, 10 units of IV regular insulin and initiate Kayexalate 30 g per rectum We will check serial potassium levels We will get a repeat 12-lead EKG at this time as last was done in ER 6. Acute encephalopathy, present on admission Does not appear to be due to hypercapnia We will go ahead and check stat CT of head without contrast and am concerned regarding pinpoint pupil on the right not clear if that is old or new May also be related to sepsis Chronic Medical problems : COPD Prostate Cancer Hypertension Diabetes Urinary retention Hearing loss CKD stage III. This is a very sick patient , discharged one month ago from rehab and brought in to ER by families due to AMS and SOB. Patient is septic with UTI likely the source . Plan of care as above and will be adjusted per clinical course . Will consult ID for further guidance about antibiotics \ Home medications reviewed and reconciled . Nutrition consulted about peg feeding. Patient is DNT /DNI .Hospital stay of 45 days is anticipated , recovery is expected VTE Prophylaxis: Sub-Q Heparin (Unfractionated) Resuscitation Status: DNR/DNI:Do Not Resuscitate/Intubate Time spent Critical care time spent 40 minutes Ese Park MD Jun 14, 2016 00:38
[2016-06-14 00:57] LABS: Magnesium 2.4 mg/dL (1.6-2.6)
[2016-06-14] MEDS: Insulin Human REGular 300 Unit/3 mL Inj SUBQ SCH ×4 (03:08→21:03)
[2016-06-14 05:07] LABS: BASOPHILS % (AUTO) 0.3 % (0-3); EOSINOPHILS % (AUTO) 0 % (0-5); MONOCYTES % (AUTO) 0.8 % (4-12); Mean Corpuscular Hemoglobin 29.9 pg (27.0-35.0); Mean Corpuscular Volume 94.6 fL (81-100); NEUTROPHILS % (AUTO) 88.2 % (40-74); Platelet Count 163 bil/L (150-400)
[2016-06-14] MEDS: Piperacillin-Tazo 3.375 Gm Inj 3.375 GM in Dextrose 5% Minibag Plus 50 ML IV SCH ×3 (06:30→18:49)
[2016-06-14] MEDS ORDERED: cefTRIAXone Inj 1,000 MG in Dextrose 5% Minibag Plus 50 ML IV SCH (08:30)
--- NOTE | 2016-06-14 09:38 | DRSVH ---
PROCEDURE: CT BRAIN WITHOUT CONTRAST ([id number]) INDICATIONS: STROKE TECHNIQUE: Noncontrast 4.5 mm thick angled axial sections acquired from the foramen magnum to the vertex, with c oronal reformats. COMPARISON: None. FINDINGS: Image quality: Excellent. CSF spaces: Basal cisterns are patent. No extra-axial fluid collections. The ventricles are symmet marcos in size and shape. Brain: No intracranial bleeds or masses. There is cerebral volume loss for age, with resultant vent ricular and sulcal prominence. There are periventricular and deep white matter chronic small vessel ischemic changes. There is intracranial internal carotid artery and vertebral artery atherosclerosis . Skull and face: Calvarium and visualized facial bones appear intact, without suspicious lesions. Sinuses: Mucosal thickening noted in the maxillary sinuses bilaterally, the sphenoid sinuses bilatera lly and the ethmoid air cells bilaterally. mastoids are clear. IMPRESSION: No acute intracranial disease process. Dictated by: Itzel Dias MD, PhD on 06/14/2016 at 9:36 Approved by: Itzel Dias MD, PhD on 06/14/2016 at 9:37
--- NOTE | 2016-06-14 10:12 | DRSVH ---
PROCEDURE: X-RAY CHEST ONE VIEW, PORTABLE ([id number]) INDICATIONS: sepsis TECHNIQUE: One view of the chest was acquired. COMPARISON: [facility], CR, XR CHEST 2VW, 04/02/2016, 11:08. [facility], CR, XR CHEST 1VW (PORTABLE), 06/13/2016, 14:58. FINDINGS: Surgical changes and devices: Metallic densities are noted overlying the left hemithorax. Lungs and pleura: There is unchanged appearance of blunting within the left costophrenic angle. Mini mal opacity left lung base Mediastinum: Mediastinal contours appear normal. Heart size is normal. Bones and chest wall: No suspicious bony lesions. Overlying soft tissues appear unremarkable. IMPRESSION: Mild blunting of the left costophrenic angle and left basilar patchy density redemonstrat ed. Dictated by: George LAGUNAS Interpreted: Itzel Dias MD on 06/14/2016 at 10:10 Transcribed by: RAMAN on 06/14/2016 at 10:12 Approved by: Itzel Dias MD, PhD on 06/14/2016 at 17:02
--- NOTE | 2016-06-14 10:41 | CONS ---
[address] [address] CONSULTATION REPORT PATIENT: RAF KAPLAN : 1935 MR#: [id number] ADMIT: 06/13/2016 JOB ID: [id number] DATE OF SERVICE: 06/14/2016 INFECTIOUS DISEASE CONSULTATION: I thank Dr. Park for this timely consult. REASON FOR CONSULTATION: Confusion likely secondary to complicated urinary tract infection. HISTORY OF PRESENT ILLNESS: The patient is an unfortunate 81-year-old gentleman who I had the opportunity to see last year. He has had a series of hospitalizations and group home facility visits over the past year or so due to a wide range of worsening medical problems including COPD (for which he has been intubated within the last year), worsening chronic renal insufficiency, diabetes, recurrent pneumonia, recurrent UTIs and periods of encephalopathy. On this occasion, the patient was brought to the emergency department with a report by his family of diminished mental status, weakness, shortness of breath and inability to care for himself. His told the ED doctor there have also been some recent fevers. This morning when we see the patient, we can arouse him only to the extent that he can open his eyes and appears to track but in no way interacts and cannot contribute any useful history. There are no family members available. PAST MEDICAL HISTORY: 1. COPD with prior intubation episodes. 2. Recurrent pneumonia including H. flu pneumonia November 2015. 3. Worsening chronic renal insufficiency. 4. Diabetes mellitus. 5. Hypertension. 6. History of urinary tract infections, complicated. 7. 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 8. C. difficile colitis April 2016. 9. Unsubstantiated history of prostate cancer. SOCIAL HISTORY: The patient is a long-time cigarette smoker who quit 20 years ago. He is a non alcohol consumer. He intermittently lives at home but has often been in the hospital over the past nine months and also has been to rehab a couple times in the past nine months or so. FAMILY HISTORY: Is unknown. The patient currently is not conversant and we do not know his family history. Last time I saw the patient in the summer, he was also not conversant and was sedated and we could not obtain family history then either. REVIEW OF SYSTEMS: Not available as the patient is only awake to the extent he can open his eyes. PHYSICAL EXAMINATION: Reveals a very lethargic gentleman who can be roused to the point where he will open his eyes and look around the room briefly but then becomes basically unresponsive again. He is hypothermic, if anything. Temperature 36.1 during the night. Now 37.1. Pulse 71, respiratory rate 16, blood pressure 132/59. He is saturating well on 1 L. It is difficult to open his eyes but when one does open his eyes it appears he does have some degree of anisocoria with the pupil on the left being a couple millimeters bigger than the pupil on the right. Both pupils do respond to light, however. No conjunctival or scleral abnormalities are seen. The head is without evidence of trauma. The neck seems fairly rigid but it also appears that the patient is holding his neck in that position and not allowing us to test for suppleness of the neck. Neck without adenopathy or JVD. His lungs are notable for some decreased breath sounds especially at the left base. Cardiac tones regular rate and rhythm. No significant murmur but his heart tones are distant in this COPD patient. Abdomen is soft and nontender. He has a feeding tube in the left upper quadrant which apparently is used to feed him in an attempt to diminish the risk of aspiration. There is no hepatosplenomegaly. No ascites. No suprapubic fullness. He has a Morton catheter present. The penis and scrotum were normal otherwise. No inguinal adenopathy. No evidence of synovitis. No evidence of skin breakdown including a careful examination of the heels. No skin rash. No peripheral edema. Neurologic examination is really limited and all we can do is wake him up and have his eyes flicker open and then close again. He is reported to move his extremities though I did not see him do it during my examination. LABORATORIES: Include white count yesterday in the ED 13,000, this morning 6000. There is a mild left shift, but he has also been placed on high-dose steroids. His creatinine was 4.17 yesterday. His baseline is 1.5-2, so this 4.7 is a new high for him. His K was 6. He was given Kayexalate. Now is K is 5. Urinalysis was packed with white cells, greater than 50 and the ED doctor described his urine as purulent. Ketones were not done during this admission. The patient's micro is notable for a multiplex PCR on sputum positive for human metapneumovirus. MRSA screen is pending but previously has been negative. Urine is growing two organisms, a Proteus and a lactose channeler, to be identified. Blood cultures, at this point, are negative. Urine Legionella and pneumococcal antigens are negative. Looking back in his recent labs from April, he was positive for C difficile of the stool, and in late March, he had a Proteus UTI that was quite resistant but was only sensitive to carbapenems, Zosyn and the second and third generation cephalosporins, but resistant to quinolones, Bactrim and gentamicin. IMAGING: Includes a chest x-ray done last night which shows unchanged costophrenic angle blunting due to scarring. A brain CT showed no acute process. IMPRESSION: This patient presents with one in a series of hospitalizations related to encephalopathy, chronic obstructive pulmonary disease and urinary tract infections. He appears even more debilitated than on his last admission when I saw him in October and since then, had a prolonged admission in late March and early April due to initially a urinary tract infection and then C. difficile. He spent a considerable period of time in rehab and then went home and now is admitted from home with decreased mental status, a report of fever from the , purulent urine and increasing respiratory difficulty. This morning he is extremely lethargic and we can get no history from him. Most likely, his change in mental status is due to a complicated urinary tract infection which would seem to be either due to Proteus and/or the non lactose channeler that is being identified in the urine. His chest x-ray and examinations do not suggest an acute bacterial process though he is always a risk for aspiration type pneumonia. His renal insufficiency is usually with creatinine about 1.5-2. It has now gone up above 4, which is worrisome and is associated with hyperkalemia. My overall sense of this case is that the patient is rapidly drawing towards the end of his life as he basically just cannot stay out of the hospital due to recurrent problems with COPD, new UTIs, worsening kidneys and encephalopathy as well as the recent complication of C. difficile. I would strongly consider hospice as an alternative in this very unfortunate elderly gentleman. In terms of what we can do for him now, we will place him on broad-spectrum antibiotics while we await the urine culture as well as future developments with respect to his pulmonary status. A procalcitonin should be repeated. RECOMMENDATIONS: 1. Zosyn q.12 hours which is a renal adjustment. 2. I would consult Palliative Care/Hospice in this patient for discussions with his family. 3. Repeat chest x-ray should be considered in the next 24-48 hours. 4. Repeat procalcitonin will be ordered this morning. 5. Will adjust his antibiotics based on his urine cultures. 6. I would not check a stool for C difficile unless he develops diarrhea as it is likely to be falsely positive because he did have real C. difficile colitis back in April and it is certainly possible that positives could continue for many weeks if we were to check a stool without diarrhea. Thank you very much for allowing us to see this most unfortunate gentleman once again in consultation.
--- NOTE | 2016-06-14 11:44 | PCM.CONPAL ---
Date of Service Jun 14, 2016 Date of Hospital Admission: Jun 13, 2016 at 17:22 Date of Palliative Consult: Jun 14, 2016 Requesting Provider: Jessica Goodson MD Reason Palliative Care Consult: Goals of Care Discussion Hospital Unit @time of consult: Progressive Care Palliative Care Recommendation 81-year-old male admitted with progressive weakness and dyspnea, with picture of sepsis, possibly secondary to UTI as well as exacerbation of COPD and other comorbidities. Palliative medicine consulted to assist patient and family and determination of goals of care. Patient is not decisional secondary to dementia and his other medical conditions. Summary of palliative recommendations: -Symptom management (Pain/other)- appears comfortable and in no distress. Continued prn management per hospitalist service -DPOA/Advanced Directives/POLST- patient's is his POA. As far as daughter Amber knows, no will, living will, advanced directive or POLST. Amber says that she has talked about resuscitation measures with the patient's and he is to be DO NOT RESUSCITATE/DO NOT INTUBATE, but limited interventions such as antibiotics, fluids, etc. are allowed. Patient's has an ear infection at this time and may not come in today, but Amber says she will in the coming days. We will plan on meeting with her and reviewing these issues further, and will plan on helping family complete a POLST prior to discharge. -Family/emotional support- Amber notes that her mother is unable to care for the patient at home at this time. See my notes below in the HPI regarding details of the home situation. Amber anticipates patient will require SNF placement. I did talk with her about hospice, which the family has not previously considered- we will talk further about this in the coming days and if it seems appropriate and agreeable will get a hospice info visit prior to discharge Patient Goals: 1. Patient's family wants to be told the truth about his illness, even if it is unpleasant. 2. Patient's family would like to be told prognosis when it can be predicted, to better guide treatment decisions. Additional Medical Diagnoses with primary management by Hospitalist team include : 1. Sepsis : Source likely UTI 2 . COPD exacerbation 3.Renal Failure : Acute on chronic. ( H/o Stage III CKD) 4. UTI 5. Hyperkalemia secondary to renal failure, acute, present on admission 6. Acute on chronic encephalopathy, present on admission Chronic Medical problems : COPD Prostate Cancer Hypertension Diabetes Urinary retention Hearing loss CKD stage III. Problems: End of Life Preferences DO NOT RESUSCITATE/DO NOT INTUBATE/limited interventions/already on artificial nutritional support via PEG Goals of Care SNF placement for support and rehabilitation as able Disposition SNF Resuscitation Status Resuscitation Status: DNR/DNI:Do Not Resuscitate/Intubate POLST Updates/Changes Previous POLST?: No . Pain: None Symptom management: Drowsiness/sleepiness, Dyspnea, Delirium Pt History History of Present Illness Per admission H&P: Information are obtained form the chart and as per my conversation with the ER physician. Patient is very Drowsy and I am unable to interview his at this time . 81 year old male with a history of COPD, diabetes, and HTN presents to the ER via EMS accompanied by his due to acute on chronic shortness of breath, worsening markedly today. also reports fever, . Patient denies chest pain, and any other symptoms. 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 He was then placed in [facility] rehabilitation until May 2016. Palliative medicine consult to assist patient and family in determination of goals of care. Prior to visiting I reviewed his records in the EMR in detail, including past admissions. Spoke with his bedside nurse and with members of his hospitalist team, including Drs. Goodson and Sriram.. His daughter Amber arrived as I was entering the room to see the patient and I spent an extended time speaking with her at bedside. During this time patient is awake and alert, interacts with Amber by smiling and nodding, but no verbal interaction and his ability to follow/participate in the conversation is extremely limited, with him giving no indication that he actually understands what we are talking about. Does appear to be in no distress however. Amber and I reviewed his history over the last several years in some detail. She expresses concern and dissatisfaction at the care he has received at some other care facilities. She and her family feel that some of his persistent problems are a consequence of inadequate past care. She says that he has been kicked out of various facilities for financial reasons, and that financial issues are very serious right now for the family. She and her mother hope that we will be able to have some additional SNF Medicare coverage following this admission, as the patient's is effectively unable to care for him any longer at home. He continues to have a feeding tube and with it has gained weight and some strength (note that he actually was on TPN as well for nutritional support in the last year). His dysphagia has improved to the point where he can now drink thin liquids and eat mechanical soft foods but his intake remains poor (he eats 3 or 4 bites and then stops). He continues to receive tube feedings now as supplement. He is essentially wheelchair bound at this time. He is partially able to feed himself, but other ADLs are full assist and he needs to wear a diaper at all times, and is occasionally resistant to having diaper changed. Amber feels that this has contributed to some of his recurrent UTIs. She notes that he now sleeps a lot, is very forgetful but appears to "love being at home". He has been receiving some home health physical therapy/bathing assist/home health RN visits which have been very helpful, but apparently money is running out for this. Prior to this admission, patient was living at the family home at [place] where his elderly, diabetic is his chief caregiver. There are multiple generations of additional family members there (altogether greater than 10) but according to Amber known of these other family members are helpful and most are just an additional burden on the patient's . Amber says that her mother could use additional help but "she just does not ask for help" and Amber notes that the current situation "is crushing her". Past Medical History Significant PMH Noted: Admitted for acute respiratory failure with hypercapnia with COPD exacerbation 11/2015 requiring mechanical ventilation Haemophilus pneumonia 11/2015 Septic shock requiring pressor use secondary to Haemophilus pneumonia 11/2015 Prostate cancer Acute kidney and injury on chronic kidney disease secondary to sepsis 11/20/2015 Type II diabetes mellitus Dementia, progressive Urinary retention Hearing loss. HLD CKD stage III. COPD Hypertension Surgical History Appendectomy, Inguinal hernia repair, Prostatectomy, Tonsillectomy Social History Occupation: Retired Family Members Issues: As noted above in history of present illness Social Support: Good support at home from his , but apparently not from other family members Living Situation: See history of present illness Palliative Performance Scale PPS Patient Status: Baseline PPS Ambulation: Mainly Sit/Lie PPS Activity: Unable to do most activity PPS Self-Care: Total Care PPS Intake: Minimal to sips PPS Conscious Level: Full or confusion Performance Scale: 40% ADLs ADL Patient Status: Baseline ADL Ambulation: Mainly Sit/Lie ADL Dressing: Total care ADL Feeding: Mainly assistance ADL Hygene/bathing: Total care ADL Transfers: Mainly assistance POLST at Time of Admission Previous POLST?: No Allergy Allergies Reviewed: Yes Medications Current Medications: Current Medications Al Hydrox/Mg Hydrox/Simethicone 30 ml Q6 PRN PO; Start 06/13/16 at 17:45 Ondansetron HCl Dose range: 4 mg to 8 mg Q4H PRN IVPUSH; Start 06/13/16 at 17: 45; Stop 06/13/16 at 18:03; Status DC Acetaminophen 975 mg 975 mg Q6H PRN PO; Start 06/13/16 at 17:45; Stop 06/13/16 at 18:03; Status DC Sodium Chloride 1,000 ml @ 150 mls/hr Q6H40M IV Last administered on 06/13/16t 17:54; Admin Dose 75 MLS/HR; Start 06/13/16 at 17:54 Lactated Ringer's 1,000 ml @ 0 mls/hr Q0M PRN IV; Start 06/13/16 at 17:54 Lactated Ringer's 1,000 ml @ 150 mls/hr Q6H40M IV; Start 06/13/16 at 17:54; Stop 06/14/16 at 10:12; Status DC Acetaminophen 975 mg Q6H PRN PO; Start 06/13/16 at 17:55 Ondansetron HCl Start with 4 MG, if ... Q4H PRN IVPUSH; Start 06/13/16 at 17:55 Ceftriaxone Sodium/Dextrose/ Water 50 ml @ 100 mls/hr Q24 IV; Start 06/14/16 at 08:30; Stop 06/14/16 at 08:30; Status DC Heparin Sodium (Porcine) 5,000 unit Q12H SUBQ Last administered on 06/13/16 22: 52; Admin Dose 5,000 UNIT; Start 06/13/16 at 20:30 Albuterol/ Ipratropium 3 ml 3 ml Q6H PRN NEB; Start 06/13/16 at 17:55; Stop at 00:32; Status DC Ceftriaxone Sodium 1000 mg/ Dextrose/Water 50 ml @ 100 mls/hr Q24 IV; Start at 18:15; Stop 06/13/16 at 18:27; Status DC Ceftriaxone Sodium/Dextrose/ Water 50 ml @ 100 mls/hr Q24H IV Last administered on 06/13/16 20:34; Admin Dose 100 MLS/HR; Start 06/13/16 at 18:27 ; Stop 06/14/16 at 00:41; Status DC Prednisone 40 mg DAILY PO; Start 06/13/16 at 20:30; Stop 06/14/16 at 00:32; Status DC Insulin Human Regular * Low Dose Insulin Algori... Q6 SUBQ Last administered on 06/14/16 03:08; Admin Dose 3 UNIT; Start 06/13/16 at 20:30 Albuterol/ Ipratropium 3 ml Q6H NEB; Start 06/14/16 at 05:55 Methylprednisolone Sodium Succinate 80 mg Q8 IVPUSH Last administered on 01:21; Admin Dose 80 MG; Start 06/14/16 at 00:30; Stop 06/14/16 at 10:17; Status DC Albuterol 2.5 mg 2.5 mg Q2H PRN NEB; Start 06/14/16 at 00:30 Piperacillin Sod/ Tazobactam Sod/ Dextrose/Water 50 ml @ 12.5 mls/hr Q12H IV; Start 06/14/16 at 06:30 Methylprednisolone Sodium Succinate 40 mg Q8 IVPUSH; Start 06/14/16 at 16:30 Scheduled ([Lactobacillus Acidophilus]) 1 TABLET TABLET 2 TABLET PO PCHS Ezetimibe/Simvastatin 10-80 mg (Vytorin 10-80 mg) 1 Each Tablet 1 TABLET PO HS Famotidine (Pepcid) 20 Mg Tablet 20 MG PO BID Glipizide ER (Glipizide ER) 10 Mg Tab.er.24 10 MG PO BIDWM Insulin Glargine (Lantus U100 Insulin Vial) 100 Unit/Ml Vial 30 UNIT SUBQ HS Insulin Human Lispro (HumaLOG U100 Insulin Vial) 100 Unit/Ml Unit 1-12 UNIT SUBQ ACHS Check blood sugars before meals and at bedtime. Use correction factor only before meals. Blood Sugar Lispro Correction: <151, 0 units; 151-175, 1 unit; 176-200, 2 units; 201-225, 3 units; 226-250, 4 units; 251-275, 5 units; 276-300 , 6 units; 301-325, 7 units; 326-350, 8 units; 351-375, 9 units; 376-400, 10 units; >400, 12 units. Tamsulosin (Flomax) 0.4 Mg Capsule 0.4 MG PO HS Scheduled PRN Ipratropium/Albuterol Sulfate (Iprat-Albut 0.5-3(2.5) mg/3 mL Inhalant Soln) 3 Ml Ampul.neb 3 ML IH Q6 PRN PRN For Wheezing Nystatin (Nystatin) 60 Applic/15 Gm Cream 1 APPLIC TOP BID PRN PRN RASH Objective Findings Exam Vital Sign - Last Date Time Temp Pulse Resp B/P Pulse Ox O2 Delivery O2 Flow Rate FiO2 06/14/16 10:47 70 06/14/16 10:05 16 97 OxyMask 1.50 06/14/16 08:00 37.1 132/59 Intake and Output 06/13/16 06/13/16 06/14/16 Cumulative From/Thru 15:00 23:00 07:00 06/13/16 15:06 - 06/14/16 06:37 Intake Total 1500 ml 664 ml 2164 ml Output Total 525 ml 525 ml Balance 1500 ml 139 ml 1639 ml Intake Oral 0 ml 0 ml IV Total 1500 ml 664 ml 2164 ml Output Urine Total 525 ml 525 ml Objective Frail-appearing elderly man lying in bed. In no distress. Occasional deep wet sounding cough. Vital signs noted- while I was in his room he was repeatedly desaturated into the mid 80s and required starting vented mask oxygen. Skin pale, warm and dry. Head and neck exam without acute focal findings. Lungs with dependent crackles. Heart sounds regular. Abdomen rounded, soft, nontender. Extremities with trace edema at ankles. Moves all extremities spontaneously. Lab/Diagnostics Lab and Imaging results reviewed in detail in EMR. Time spent Total time 90 minutes; >50% face to face with patient and family, providing counselling regarding plans and recommendations, and in care coordination with his medical teams. Of the above total time, 15 minutes counseling for advanced care planning with the patient's daughter, reviewing resuscitation wishes, prior documentation, etc. copies to: Roscoe Lynch MD, David F MD Jun 14, 2016 11:44 Would patient choose quality of life over quantity of life? Would comfort care be more important than being awake and alert? If patient is no longer alert and aware because of their illness, would you choose comfort for them? Palliative Care counselled: Time spent Total time [ ] minutes; >50% face to face with patient and/or family, providing counselling regarding plans and recommendations, and in care coordination with his/her medical teams. I also spent an additional [ ] minutes counseling for advanced care planning with the patient/the patients family/the surrogate decision maker. Mario Logan MD Jun 14, 2016 11:44
[2016-06-14] MEDS: Heparin 5,000 Unit/mL Inj SUBQ SCH (12:05)
[2016-06-14 13:04] LABS: Magnesium 2.4 mg/dL (1.6-2.6)
[2016-06-14 13:13] LABS: TROPONIN T 0.119 ug/L (0.0-0.011)
[2016-06-14] MEDS: MethylprednisoLONE Sodium Succinate 40 mg/mL Inj IVPUSH SCH (18:34)
--- NOTE | 2016-06-14 19:16 | PCM.PNMED ---
Subjective Date of Service Jun 14, 2016 Subjective overnight: Rocephin to Zosyn overnight for improved infection coverage. The patient received a CT scan for altered mental status which was negative. Today: Patient was initially quite somnolent only withdrawing from pain however on return to the room the patient was alert and able to follow some commands. Patient remains nonvocal. [facility] records obtained which showed the patient has progressively deteriorated since his discharge. The daughter came into the room today and stated that over the last month he has been living at home. The has been reportedly having difficulty taking care of the patient and he regularly has to sit in dirty diapers which are the likely cause of his urinary tract infection. Palliative care is being consultation to determine goals of care given the patient's ongoing dementia. Exam Vital Signs Vital Sign - Last Date Time Temp Pulse Resp B/P Pulse Ox O2 Delivery O2 Flow Rate FiO2 06/14/16 04:32 36.1 76 20 103/61 96 OxyMask 2.00 Intake and Output 06/13/16 06/13/16 06/14/16 Cumulative From/Thru 15:00 23:00 07:00 06/13/16 15:06 - 06/14/16 06:37 Intake Total 1500 ml 664 ml 2164 ml Output Total 525 ml 525 ml Balance 1500 ml 139 ml 1639 ml Intake Oral 0 ml 0 ml IV Total 1500 ml 664 ml 2164 ml Output Urine Total 525 ml 525 ml Exam General : Elderly chronically Ill appearing male lying in bed in bed comfortably. Somnolent initially and alert and nonfocal secondarily. Eyes: PERRLA, Anisocoria, Sclerae is anicteric. HENT : Head is normocephalic atraumatic, dry mucous membranes, no central cyanosis no cobblestoning mucosa Neck : Supple, no JVD, trachea is midline Cardiovascular: Regular rate and rhythm, murmur noted at left sternal border, no rubs or gallops Lungs : Clear to auscultation bilaterally no wheezing rales or rhonchi Abdomen : NABS, Soft, non tender, nondistended. PEG tube in place Extremity : No edema, No cyanosis , no calf tenderness, clubbing noted : Morton catheter in place yielding dark urine Neuro : Patient does not follow commands, able to track with eyes, unable to assess MSK: Moves all extremities Psych: Nonvocal unable to assess Lab and Diagnostics Result Diagram: 06/14/16 0430 06/14/16 0430 X-Rays, CTs and MRIs CT BRAIN WITHOUT CONTRAST ([id number]) IMPRESSION: No acute intracranial disease process. Dictated by: Itzel Dias MD, PhD on 06/14/2016 at 9:36 Approved by: Itzel Dias MD, PhD on 06/14/2016 at 9:37 X-RAY CHEST ONE VIEW, PORTABLE ([id number]) IMPRESSION: Mild blunting of the left costophrenic angle and left basilar patchy density redemonstrated. Dictated by: George Mclean RRA Interpreted: Itzel Dias MD on 06/14/2016 at 10:10 Transcribed by: RAMAN on 06/14/2016 at 10:12 Approved by: Itzel Dias MD, PhD on 06/14/2016 at 17:02 Assessment & Plan 81-year-old male past medical history remarkable for COPD and recent hospitalization for Haemophilus influenza presents with worsening shortness of breath. Hospital day 2 1. Acute Severe Sepsis, present on admission, treated stable - Patient meets criteria with heart rate of 126, respiratory rate of 44 and white cell count of 13,000 and lactic acid of 2.3 -Hemodynamically stable. Blood pressure in the 120 systolic -IVF : NS at 100 ml/hr . Monitor electrolytes and renal function closely -Infectious disease is following patient is on IV Zosyn to also cover possible aspiration pneumonia given his significant lethargy and risk of aspiration -Blood culture, urine cultures . procalcitonin and repeat chest x-rays as necessary 2 . Acute COPD exacerbation , present on admission, treated stable - Continue Nebulizer. bronchodilators , supplemental oxygen. - DuoNeb's every 6 hours and albuterol nebs every 2 hours when necessary - supplemental O2 as necessary - Chest X-ray shows no pneumonia , repeat chest x-ray in 48 hours - We will switch to IV Solu-Medrol as patient is not able to tolerate by mouth at this time given his significant acute encephalopathy - Monitor ABG as necessary, initial ABG which does not reveal significant hypercapnia but does reveal hypoxia 3. Acute kidney injury on chronic Renal Failure, present on admission, treated improvement -History of Stage III CKD with creatinine baseline at 1.7 - Likely due to UTI and pre-renal azotemia . - IVF : NS @ 100 ml/hr. Monitor renal function and electrolytes - CMP in AM . - Consider nephrology evaluation with no improvement 4. Acute urinary tract infection, present on admission, chronic - Report from daughter is that patient wears diapers due to incontinence and has difficult time taking care of patient so he remains sensorial diapers for extended periods of time - Social work following and palliative consulted for placement at discharge 5. Hyperkalemia secondary to renal failure, acute, present on admission - Initially given and give one ampule IV sodium bicarbonate, 10 units of IV regular insulin and initiate Kayexalate 30 g per rectum - Continue to monitor 6. Acute encephalopathy, present on admission, stable improving - Likely due to sepsis Does not appear to be due to hypercapnia - CT of head without contrast was negative for acute intracranial process - Speech therapy for swallowing evaluation 7. History of Hypertension, not present on admission, chronic - We will restart home meds when patient is more stable 8 Diabetes mellitus type II, present on admission, chronic - Correction scale insulin as necessary until baseline insulin requirements are more apparent 9 Urinary retention, present on admission, presumed chronic - Possible history of prostate cancer versus BPH - Morton catheter in place 10 history of dementia, present on admission, chronic - G-tube available for feeding - Palliative consulted for goals of care discussion DVT prophylaxis with heparin subcutaneous GI prophylaxis not indicated at this time CODE STATUS DNR /DNI . Disposition: patient is likely in for a Hospital stay of 4-5 days with recovery to baseline expected barring unforeseen complications VTE Prophylaxis: Sub-Q Heparin (Unfractionated) Resuscitation Status: DNR/DNI:Do Not Resuscitate/Intubate Attending Statement The patient was seen and examined together with Dr. Bhatia on 06-14-16 and I agree with the history, exam and plan as outlined in the note above. Rex Bhatia DO Jun 14, 2016 07:01 Jessica Goodson MD Jun 15, 2016 12:06
[2016-06-15] VITALS (12 sets, daily range): BP systolic 135–170; BP diastolic 68–83; PULSE 78–94; RESP 18–32; O2SAT 91–96
[2016-06-15] MEDS: 0.9% Sodium Chloride 1,000 ML IV SCH ×3 (00:48→17:27)
[2016-06-15] MEDS: Heparin 5,000 Unit/mL Inj SUBQ SCH ×3 (01:12→22:36)
[2016-06-15] MEDS: MethylprednisoLONE Sodium Succinate 40 mg/mL Inj IVPUSH SCH ×3 (01:12→17:24)
[2016-06-15 04:07] LABS: Mean Corpuscular Hemoglobin 29.9 pg (27.0-35.0); Mean Corpuscular Volume 93.2 fL (81-100); Platelet Count 160 bil/L (150-400)
[2016-06-15 04:46] LABS: BASOPHILS % (AUTO) 0.4 % (0-3); EOSINOPHILS % (AUTO) 0 % (0-5); MONOCYTES % (AUTO) 3.2 % (4-12); NEUTROPHILS % (AUTO) 86.6 % (40-74)
[2016-06-15] MEDS: Insulin Human REGular 300 Unit/3 mL Inj SUBQ SCH ×5 (05:26→22:36)
[2016-06-15] MEDS: Albuterol-Ipratropium 3 mL Inhalation Solution NEB SCH ×4 (05:55→23:33)
[2016-06-15] MEDS: Piperacillin-Tazo 3.375 Gm Inj 3.375 GM in Dextrose 5% Minibag Plus 50 ML IV SCH ×2 (06:17→17:28)
--- NOTE | 2016-06-15 11:18 | PCM.PALLBR ---
Palliative Care Recommendation 81-year-old male admitted with progressive weakness and dyspnea, with picture of sepsis, possibly secondary to UTI as well as exacerbation of COPD and viral pneumonitis. Palliative medicine consulted to assist patient and family and determination of goals of care. Patient is not decisional secondary to dementia and his other medical conditions. Summary of palliative recommendations: -Symptom management (Pain/other)- appears comfortable and in no distress. Continued prn management per hospitalist service. Seems to have developed a modest degree of abdominal distention since resumption of tube feedings. I have taken the liberty of starting scheduled BID senna and MiraLAX, with orders to hold if he develops diarrhea or greater than 2 BMs per day. -DPOA/Advanced Directives/POLST- patient's is his POA. As far as daughter Amber knows, no will, living will, advanced directive or POLST. Amber says that she has talked about resuscitation measures with the patient's and he is to be DO NOT RESUSCITATE/DO NOT INTUBATE, but limited interventions such as antibiotics, fluids, etc. are allowed. Will plan on helping family complete a POLST prior to discharge. -Family/emotional support- home situation is complex. Family had hoped that patient would qualify for Medicare SNF coverage, but he does not. He will therefore have to return home (despite his being nearly overwhelmed with his care). family service center director/discharge planners are working on possible options to provide additional support at home such as JAVIER. Patient Goals: 1. Patient's family wants to be told the truth about his illness, even if it is unpleasant. 2. Patient's family would like to be told prognosis when it can be predicted, to better guide treatment decisions. Additional Medical Diagnoses with primary management by Hospitalist team include : 1. Sepsis : Source likely UTI 2 . COPD exacerbation 3.Renal Failure : Acute on chronic. ( H/o Stage III CKD) 4. UTI 5. Hyperkalemia secondary to renal failure, acute, present on admission 6. Acute on chronic encephalopathy, present on admission Chronic Medical problems : COPD Prostate Cancer Hypertension Diabetes Urinary retention Hearing loss CKD stage III. Problems: End of Life Preferences DO NOT RESUSCITATE/DO NOT INTUBATE/limited interventions/already on artificial nutritional support via PEG Goals of Care Evolving- probably return home Disposition Probably home Resuscitation Status Resuscitation Status: DNR/DNI:Do Not Resuscitate/Intubate POLST Updates/Changes Previous POLST?: No . Pain: None Total time 25 minutes; >50% face to face with patient, providing counselling regarding plans and recommendations, and in care coordination with his medical teams. Palliative Brief Note Date of Service Jun 15, 2016 . Returned to reevaluate patient. Prior to visiting, reviewed his updated records in the EMR and spoke with his bedside nurse. She noted that his abdomen appeared distended compared with yesterday but that he had minimal residual after tube feeding. Has not had a bowel movement since admission. When I entered the room, he was sitting up in bed, awake and alert. Nurse's aide advised me that the patient reads lips (otherwise very hard of hearing) and once I pulled my face mask down he answered simple questions appropriately ( after being nonverbal yesterday). He denied any significant pain, dyspnea, nausea or other concerns. On exam, elderly gentleman sitting up in bed in no distress. Vital signs noted. Skin warm and dry. Head and neck exam unremarkable. Lungs with a few bibasilar crackles, heart sounds regular. His abdomen is round but not severely distended or firm, is without any signs of tenderness and certainly no rigidity or other peritoneal signs. I palpated his abdomen quite deeply and vigorously without him showing any signs of discomfort. Bowel sounds were hypoactive. Extremities without pitting edema. Labs and imaging studies reviewed. Mario Logan MD Jun 15, 2016 11:18
--- NOTE | 2016-06-15 16:11 | PROG NOTE ---
[address] [address] PROGRESS NOTE PATIENT: RAF KAPLAN : 1935 MR#: [id number] ADMIT: 06/13/2016 JOB ID: [id number] DATE: 06/15/2016 INFECTIOUS DISEASE FOLLOWUP NOTE: REASON FOR FOLLOWUP: Respiratory viral infection with possible bacterial superinfection, as well as complicated urinary tract infection, in a patient with multiple recent hospitalizations and severe underlying issues including COPD, recurrent pneumonia, renal insufficiency and diabetes. INTERVAL HISTORY: Overnight, the patient has actually improved somewhat. Yesterday, when we saw the patient, he was very encephalopathic and really could not be aroused. Today, he is awake and alert. He is so hard of hearing that it is virtually impossible to communicate with him but when a note is written or the patient reads lips, he does respond appropriately to questions. He states that his worst problem right now is his continuing cough, which is intermittently productive. Otherwise, he denies having fever or chills, has no clear-cut abdominal or other complaint, though it is very difficult to obtain any history from this almost completely deaf gentleman. PHYSICAL EXAMINATION: Reveals a much more alert gentleman as compared to yesterday who is sitting up in bed, and coughing quite a bit but in no acute distress. He is afebrile, as he has been since admission. Temp 36.4, pulse 94, respiratory rate around 30, blood pressure 170/83. He is saturating 93% on 2 L nasal oxygen. Examination of the mental status, as I mentioned, is very difficult because of his hearing loss. His eyes are without conjunctivitis. Oral cavity looks benign. Lungs: Bilateral wheezes. Cardiac tones are quite distant. Abdomen is soft, nontender. A Morton catheter is in place, and he has a reasonable urine output today which is an improvement also. No skin rash noted. LABORATORIES: Include white count 9000, platelet count 160,000. Creatinine has come down to 3.43. Note that it was 4.2, then 4, now 3.4. So, we are seeing a steady decline. LFT are normal. Procalcitonin was never really elevated. It was 0.24 two days ago, 0.2 yesterday, 0.14 today. Serologic studies include negative urine legionella and negative urine pneumococcal antigen. One of four blood cultures grew coag-negative staph, which is a contaminant. MRSA screen was negative. Respiratory viral PCR panel was positive for human metapneumovirus. His urine culture is growing two gram-negative rods, one of which is clearly a proteus and the other is yet to be identified. Because there are two of these organisms, it makes it harder for the lab to separate and do susceptibilities but we expect identification and susceptibilities tomorrow. IMPRESSION: This is a very debilitated and chronically ill gentleman with underlying chronic obstructive pulmonary disease, recurrent pneumonia, renal insufficiency, diabetes and a periodic encephalopathy who has also had recent Clostridium difficile. He is admitted on this occasion with deteriorating mental status and worsening debility. He clearly has a respiratory viral infection, which may account for his infiltrates and cough but it is also possible that he has a superimposed bacterial process. It seems also quite likely. He also has bacteriuria, which is associated with heavy pyuria and likely has a complicated urinary tract infection as well. Though we do not have the exact identification on the two bugs in the urine it seems likely they are both being covered with Zosyn, as the patient is steadily improving, now in his third day in the hospital. RECOMMENDATIONS: 1. This case was discussed with Dr. Goodson and his team. 2. I would continue Zosyn for a 5-7 day period, assuming the urinary organisms are susceptible. 3. It sounds as if they are great troubles in trying to place this patient either in a SNF or to get him ready to go back home, and I think as long as his interests are served by being here in the hospital I would continue the Zosyn for the full 5-7 day course rather than switch to oral therapy. 4. As no changes are anticipated in the antibiotic regimen, Infectious Disease will go ahead and sign off. Do not hesitate to contact me or the Infectious Disease team if the urine isolates are actually resistant to the Zosyn.
--- NOTE | 2016-06-15 19:57 | PCM.PNMED ---
Subjective Date of Service Jun 15, 2016 Subjective overnight: No acute events overnight Today: Patient able to answer questions today however very hard of hearing. States he is in no pain or discomfort. No questions. Exam Vital Signs Vital Sign - Last Date Time Temp Pulse Resp B/P Pulse Ox O2 Delivery O2 Flow Rate FiO2 06/15/16 05:11 79 06/15/16 04:01 36.3 23 135/68 91 Room Air 06/14/16 12:40 2.00 Intake and Output 06/14/16 06/14/16 06/15/16 Cumulative From/Thru 15:00 23:00 07:00 06/13/16 15:06 - 06/15/16 06:35 Intake Total 725 ml 1168 ml 4057 ml Output Total 500 ml 650 ml 1675 ml Balance 225 ml 518 ml 2382 ml Intake Oral 0 ml 0 ml 0 ml IV Total 725 ml 1168 ml 4057 ml Output Urine Total 500 ml 650 ml 1675 ml Exam General : Elderly chronically Ill appearing male lying in bed in bed comfortably. alert and oriented to self, city, month, Eyes: PERRLA, Anisocoria, Sclerae is anicteric. HENT : Head is normocephalic atraumatic, moist mucous membranes, no central cyanosis no cobblestoning mucosa Neck : Supple, no JVD, trachea is midline Cardiovascular: Regular rate and rhythm, murmur noted at left sternal border, no rubs or gallops Lungs : Clear to auscultation bilaterally no wheezing rales or rhonchi Abdomen : NABS, Soft, non tender, nondistended. PEG tube in place Extremity : No edema, No cyanosis , no calf tenderness, clubbing noted : Morton catheter in place yielding dark urine Neuro : Patient does follow some commands able to move hands and feet with equal strength cranial nerves II through XII exam is nonfocal MSK: Moves all extremities Psych: Nonvocal unable to assess Lab and Diagnostics Result Diagram: 06/15/16 0330 06/15/16 0330 X-Rays, CTs and MRIs CT BRAIN WITHOUT CONTRAST ([id number]) IMPRESSION: No acute intracranial disease process. Dictated by: Itzel Dias MD, PhD on 06/14/2016 at 9:36 Approved by: Itzel Dias MD, PhD on 06/14/2016 at 9:37 X-RAY CHEST ONE VIEW, PORTABLE ([id number]) IMPRESSION: Mild blunting of the left costophrenic angle and left basilar patchy density redemonstrated. Dictated by: George Mclean RRA Interpreted: Itzel Dias MD on 06/14/2016 at 10:10 Transcribed by: RAMAN on 06/14/2016 at 10:12 Approved by: Itzel Dias MD, PhD on 06/14/2016 at 17:02 Assessment & Plan 81-year-old male past medical history remarkable for COPD and recent hospitalization for Haemophilus influenza presents with worsening shortness of breath. Hospital day 3 1. Acute kidney injury on chronic Renal Failure, present on admission, treated improvement - History of Stage III CKD with creatinine baseline at 1.7 - Likely due to UTI and pre-renal azotemia . - IVF : NS @ 100 ml/hr. Monitor renal function and electrolytes continuous G- tube feedings - CMP in AM . - Consider nephrology evaluation with no improvement 2. Acute urinary tract infection, present on admission, chronic - Report from daughter is that patient wears diapers due to incontinence and has difficult time taking care of patient so he remains sensorial diapers for extended periods of time - Social work following and palliative consulted for placement at discharge - Infectious disease doctor recommends Zosyn for a course of 5-7 days total - Continue to monitor for culture results and adjust as necessary 3 . Acute COPD exacerbation , present on admission, treated stable - Continue Nebulizer. bronchodilators , supplemental oxygen. - DuoNeb's every 6 hours and albuterol nebs every 2 hours when necessary - supplemental O2 as necessary - Chest X-ray shows no pneumonia , repeat chest x-ray in 48 hours - We will switch IV Solu-Medrol to prednisone likely through G-tube with reports of patient having difficult swallowing speech reevaluate 4. Acute Severe Sepsis, present on admission, resolved - Patient meets criteria with heart rate of 126, respiratory rate of 44 and white cell count of 13,000 and lactic acid of 2.3 -Hemodynamically stable. Blood pressure in the 120 systolic -IVF : NS at 100 ml/hr . Monitor electrolytes and renal function closely -Infectious disease is following patient is on IV Zosyn to also cover possible aspiration pneumonia given his significant lethargy and risk of aspiration -Blood culture, urine cultures negative to date . procalcitonin and repeat chest x-rays as necessary 5. Hyperkalemia secondary to renal failure, acute, present on admission, stable - Initially given and give one ampule IV sodium bicarbonate, 10 units of IV regular insulin and initiate Kayexalate 30 g per rectum - Continue with scheduled Kayexalate given chronic kidney disease - Continue to monitor 6. Acute encephalopathy, present on admission, stable improving - Likely due to sepsis does not appear to be due to hypercapnia - CT of head without contrast was negative for acute intracranial process - Likely mild to moderate dementia however difficult to assess given patient's poor hearing - Speech therapy for swallowing evaluation 7. History of Hypertension, not present on admission, chronic - We will restart home meds when patient is more stable 8 Diabetes mellitus type II, present on admission, chronic - Correction scale insulin with meals - Basal Lantus 12 units overnight to cover for continuous feeding 9 Urinary retention, present on admission, presumed chronic - Possible history of prostate cancer versus BPH - Morton catheter in place will be discontinued and have bladder scans when necessary tomorrow 10 history of dementia, present on admission, chronic - G-tube available for feeding - Palliative consulted for goals of care discussion DVT prophylaxis with heparin subcutaneous GI prophylaxis not indicated at this time CODE STATUS DNR /DNI . Disposition: patient is likely in for a Hospital stay of 4-5 days with recovery to baseline expected barring unforeseen complications VTE Prophylaxis: Sub-Q Heparin (Unfractionated) Resuscitation Status: DNR/DNI:Do Not Resuscitate/Intubate Attending Statement The patient was seen and examined together with Dr. Bhatia on 06-15-16 and I agree with the history, exam and plan as outlined in the note above. Rex Bhatia DO Jun 15, 2016 07:46 Jessica Goodson MD Jun 16, 2016 12:40
[2016-06-15] MEDS: Polyethylene Glycol (PEG) 17 Gm Powder PO SCH (20:30)
[2016-06-15] MEDS ORDERED: Insulin GLARgine 100 Unit/mL Syringe SUBQ SCH ×2 (21:00)
[2016-06-16] VITALS (9 sets, daily range): BP systolic 124–151; BP diastolic 70–75; PULSE 70–91; RESP 15–25; O2SAT 91–96
[2016-06-16 03:42] LABS: Mean Corpuscular Hemoglobin 30.2 pg (27.0-35.0); Mean Corpuscular Volume 95.1 fL (81-100); Platelet Count 178 bil/L (150-400)
[2016-06-16 04:04] LABS: NEUTROPHILS % (AUTO) 78 % (40-74)
[2016-06-16 04:05] LABS: BASOPHILS % (AUTO) 0 % (0-3); EOSINOPHILS % (AUTO) 0 % (0-5); MONOCYTES % (AUTO) 4 % (4-12)
[2016-06-16] MEDS: 0.9% Sodium Chloride 1,000 ML IV SCH ×3 (05:54→19:14)
[2016-06-16] MEDS: Albuterol-Ipratropium 3 mL Inhalation Solution NEB SCH ×4 (06:14→22:53)
[2016-06-16] MEDS: Piperacillin-Tazo 3.375 Gm Inj 3.375 GM in Dextrose 5% Minibag Plus 50 ML IV SCH ×2 (06:30→18:13)
[2016-06-16] MEDS: Polyethylene Glycol (PEG) 17 Gm Powder PO SCH ×2 (07:19→19:13)
[2016-06-16] MEDS: Insulin Human REGular 300 Unit/3 mL Inj SUBQ SCH ×3 (07:43→17:00)
[2016-06-16] MEDS: predniSONE 20 mg Tablet TUBE SCH (07:43)
[2016-06-16] MEDS: Heparin 5,000 Unit/mL Inj SUBQ SCH ×2 (07:43→21:03)
[2016-06-16] MEDS ORDERED: Pancrelipase 5,000 Unit Capsule TUBE ONE (10:50)
--- NOTE | 2016-06-16 14:12 | PCM.PALLBR ---
Palliative Care Recommendation 81-year-old male admitted with progressive weakness and dyspnea, with picture of sepsis, possibly secondary to UTI as well as exacerbation of COPD and viral pneumonitis. Palliative medicine consulted to assist patient and family and determination of goals of care. Patient is not decisional secondary to dementia and his other medical conditions. Summary of palliative recommendations: -Symptom management (Pain/other)- appears comfortable and in no distress. Continued prn management per hospitalist service. I passed along tips for unclogging the feeding tube to Dr. Bhatia Management of antibiotic coverage per medicine team in light of culture results For control of his delirium consider trial of either scheduled low-dose Risperdal at bedtime (0.25 mg PO HS) versus low-dose Seroquel (12.5 mg PO HS) . Nursing will continue other routine measures to attempt to refocus and orient him -DPOA/Advanced Directives/POLST- patient's is his POA. As far as daughter Amber knows, no will, living will, advanced directive or POLST. Amber says that she has talked about resuscitation measures with the patient's and he is to be DO NOT RESUSCITATE/DO NOT INTUBATE, but limited interventions such as antibiotics, fluids, etc. are allowed. -Family/emotional support- home situation is complex. Family had hoped that patient would qualify for Medicare SNF coverage, but he does not. He will therefore have to return home (despite his being nearly overwhelmed with his care). crossword puzzle maker/discharge planners are working on possible options to provide additional support at home such as JAVIER. Patient Goals: 1. Patient's family wants to be told the truth about his illness, even if it is unpleasant. 2. Patient's family would like to be told prognosis when it can be predicted, to better guide treatment decisions. Additional Medical Diagnoses with primary management by Hospitalist team include : 1. Sepsis : Source likely UTI 2 . COPD exacerbation 3.Renal Failure : Acute on chronic. ( H/o Stage III CKD) 4. UTI 5. Hyperkalemia secondary to renal failure, acute, present on admission 6. Acute on chronic encephalopathy/delirium and dementia present on admission. Chronic Medical problems : COPD Prostate Cancer Hypertension Diabetes Urinary retention Hearing loss CKD stage III. Problems: End of Life Preferences DO NOT RESUSCITATE/DO NOT INTUBATE/limited interventions/already on artificial nutritional support via PEG Goals of Care Evolving- probably return home Disposition Probably home Resuscitation Status Resuscitation Status: DNR/DNI:Do Not Resuscitate/Intubate POLST Updates/Changes Previous POLST?: No Total time 35 minutes; >50% face to face with patient, providing counselling regarding plans and recommendations, and in care coordination with his medical teams. Palliative Brief Note Date of Service Jun 16, 2016 . Return to reevaluate patient. Prior to visiting, reviewed his updated records in the EMR in detail, spoke with his bedside nurse and with his hospitalist. Patient noted to be restless/agitated through the night; pulled his IV out and was tugging on his Morton catheter. Nursing also noted his feeding tube is clogged. When I arrived, he was sitting up in bed, mildly restless. Tugging at his Morton. Advised to not do that and, at least temporarily, he dropped the Morton. Indicated he had no pain, trouble breathing, nausea or other problems. On exam, vital signs noted. Skin warm and dry. Lungs clear anteriorly, heart sounds regular, abdomen soft and nontender. Morton catheter remains in place with no evidence of bleeding. Moved all extremities well. Culture results reviewed. Mario Logan MD Jun 16, 2016 14:12 Mario Logan MD Jun 16, 2016 14:12
--- NOTE | 2016-06-16 15:53 | PCM.PALLBR ---
Palliative Brief Note Date of Service Jun 16, 2016 . Returned to participate in meeting with medical team and patient's , Tracey. Medical team had contacted her and requested meeting in light of patient's increasing behavioral issues (including resisting nursing care, pulling out all IVs, pulling on Morton and pulling on his PEG tube (ultimately damaging it requiring replacement). Reviewed patient's recent medical status as well as his longer term status and prognosis. Tracey noted that the patient has at times for a number of years stated that he "wanted to stop all of this" but these expressions have been inconsistent. Tracey and her daughter Amber have indicated that the patient has been increasingly uncooperative with care at home as well. Medicine team presented their concerns that he now cannot receive the antibiotics he requires in his refusal of other cares is endangering his health. They have been informed in the past that the family did not want the patient chemically or physically restrained by his lack of cooperation now means that he cannot receive his necessary care. Given that, the question was put to Tracey whether he should be restrained so that he can be treated, or whether it is time to transition to comfort based care. She was unable to decide and felt the need to review these matters with family members. I also spoke with her about the option of hospice, who could provide support in the home as well as some treatments. Patient's family is financially very distressed at this time, he cannot qualify for SNF, they cannot afford pocket expenses for help with his home care- all of which further complicate the situation. Ultimately, decision was left open for the moment- Tracey will review these matters with other family members and understands that she must come to a decision about correction of care within the next day or so, and in the meantime the medical team will not impose care on the patient and will not restrain him. He remains DO NOT RESUSCITATE/DO NOT INTUBATE. An additional 30 minutes spent, greater than 50% with patient and his and in coordination with his medical team. Mario Logan MD Jun 16, 2016 15:53
--- NOTE | 2016-06-16 20:40 | PCM.PNMED ---
Subjective Date of Service Jun 16, 2016 Subjective overnight: Pt awake all night, patient attempted to pull all lines including telemetry, IV lines, Morton catheter. By morning all IV lines have been removed , and PEG tube no longer functioning. Today: Patient unwilling to interact with speech therapy for evaluation of swallowing. Patient not cooperative with nursing attempts to care for patient, swatting at nursing hands. Patient uncooperative with doctors in room, obviously pretending to be asleep as he looked at the Dr. immediately upon placing the stethoscope on the patient's chest then looked away back to sleep even through sternal rub and nail bed. Family meeting with palliative care health to discuss need for IV antibiotics to treat infection. The family delayed care for several hours until approximately 7:30 which point they decided that the G-tube could be replaced ignoring the decision for IV antibiotics. Family eventually decided per nursing to have the IV placed with a sitter in the room tomorrow morning. Exam Vital Signs Vital Sign - Last Date Time Temp Pulse Resp B/P Pulse Ox O2 Delivery O2 Flow Rate FiO2 06/16/16 07:38 36.7 89 16 151/70 95 Room Air 06/15/16 15:21 2.00 Intake and Output 06/15/16 06/15/16 06/16/16 Cumulative From/Thru 15:00 23:00 07:00 06/13/16 15:06 - 06/16/16 06:15 Intake Total 2154 ml 0 ml 6211 ml Output Total 1800 ml 1000 ml 4475 ml Balance 354 ml -1000 ml 1736 ml Intake Oral 360 ml 0 ml 360 ml IV Total 1224 ml 5281 ml Tube Feeding 520 ml 520 ml Tube Irrigant 50 ml 50 ml Output Urine Total 1800 ml 1000 ml 4475 ml # Bowel Movements 0 0 Exam General : Elderly chronically Ill appearing male lying in bed in bed comfortably. Refusing to interact with physician, patient is hard of hearing and not disturbed immediately upon entry into the room however obviously awake and looked at patient upon placing stethoscope on chest and then pretended to be asleep, through sternal rub and nail bed pressure. Eyes: Unable to assess given patient on [employer] HENT : Head is normocephalic atraumatic Neck : Supple, no JVD, trachea is midline Cardiovascular: Regular rate and rhythm, murmur noted at left sternal border, no rubs or gallops Lungs : Clear to auscultation bilaterally no wheezing rales or rhonchi Abdomen : NABS, Soft, non tender, nondistended. PEG tube in place Extremity : No edema, No cyanosis , clubbing noted : Morton catheter in place yielding clear urine Neuro : Unable to assess given patient cooperation MSK: Unable to assess given patient cooperation Psych: Nonvocal unable to assess Lab and Diagnostics Result Diagram: 06/16/16 0320 06/16/16 0320 X-Rays, CTs and MRIs CT BRAIN WITHOUT CONTRAST ([id number]) IMPRESSION: No acute intracranial disease process. Dictated by: Itzel Dias MD, PhD on 06/14/2016 at 9:36 Approved by: Itzel Dias MD, PhD on 06/14/2016 at 9:37 X-RAY CHEST ONE VIEW, PORTABLE ([id number]) IMPRESSION: Mild blunting of the left costophrenic angle and left basilar patchy density redemonstrated. Dictated by: George Mclean RRA Interpreted: Itzel Dias MD on 06/14/2016 at 10:10 Transcribed by: RAMAN on 06/14/2016 at 10:12 Approved by: Itzel Dias MD, PhD on 06/14/2016 at 17:02 Assessment & Plan 81-year-old male past medical history remarkable for COPD and recent hospitalization for Haemophilus influenza presents with worsening shortness of breath. Hospital day 4 1. Acute kidney injury on chronic Renal Failure, present on admission, treated improvement - History of Stage III CKD with creatinine baseline at 1.7 - Likely due to UTI and pre-renal azotemia . - CMP in AM - Patient was uncooperative, pulled IV lines, family had requested previously the patient not be restrained - PEG tube blockage would not allow for fluids to be given, repeat attempts to unclog by nursing as well as bicarbonate pancrelipase solution unsuccessful - Treatment delayed today, family meeting with primary team and palliative held to determine goals of care, family required hours to make a decision on if an IV should be restarted for antibiotics family returned with only a decision on G -tube, nursing staff advised to again place question on IV start for antibiotics family decided that IV should not be started until tomorrow morning - Patient would not cooperate with speech therapy for swallow evaluation after nursing reports of coughing and choking with aspiration risk 2. Acute urinary tract infection, present on admission, chronic - Report from daughter is that patient wears diapers due to incontinence and has difficult time taking care of patient so he remains sensorial diapers for extended periods of time - Social work following and palliative consulted for placement at discharge - Infectious disease doctor recommends Zosyn for a course of 5-7 days total - Initial sensitivities show antibiotic choices to be cefepime and possibly Zosyn as gentamicin and Bactrim are contraindicated in acute kidney injury, ID requested Zosyn sensitivity - Treatment delayed today, family meeting with primary team and palliative held to determine goals of care, family required hours to make a decision on if an IV should be restarted for antibiotics family returned with only a decision on G -tube, nursing staff advised to again place question on IV start for antibiotics family decided that IV should not be started until tomorrow morning 3 . Acute COPD exacerbation , present on admission, treated stable - Continue Nebulizer. bronchodilators , supplemental oxygen. - DuoNeb's every 6 hours and albuterol nebs every 2 hours when necessary - supplemental O2 as necessary - Chest X-ray shows no pneumonia , repeat chest x-ray in 48 hours - Unable to give prednisone or Solu-Medrol without IV or PEG tube axis discussed above 4. Acute Severe Sepsis, present on admission, resolved - Patient meets criteria with heart rate of 126, respiratory rate of 44 and white cell count of 13,000 and lactic acid of 2.3 -Hemodynamically stable. Blood pressure in the 120 systolic -IVF : NS at 100 ml/hr . Monitor electrolytes and renal function closely -Infectious disease is following patient is on IV Zosyn to also cover possible aspiration pneumonia given his significant lethargy and risk of aspiration -Blood culture, urine cultures negative to date . procalcitonin and repeat chest x-rays as necessary - Treatment delayed today, family meeting with primary team and palliative held to determine goals of care, family required hours to make a decision on if an IV should be restarted for antibiotics family returned with only a decision on G -tube, nursing staff advised to again place question on IV start for antibiotics family decided that IV should not be started until tomorrow morning 5. Hyperkalemia secondary to renal failure, acute, present on admission, stable - Initially given and give one ampule IV sodium bicarbonate, 10 units of IV regular insulin and initiate Kayexalate 30 g per rectum - Continue with scheduled Kayexalate given chronic kidney disease - Patient would not cooperate with speech therapy for swallow evaluation after nursing reports of coughing and choking with aspiration risk 6. Acute encephalopathy, present on admission, stable improving - Likely due to sepsis does not appear to be due to hypercapnia - CT of head without contrast was negative for acute intracranial process - Likely mild to moderate dementia however difficult to assess given patient's poor hearing - Patient would not cooperate with speech therapy for swallow evaluation after nursing reports of coughing and choking with aspiration risk - Palliative care consulted to determine goals of care 7. History of Hypertension, not present on admission, chronic - We will restart home meds when patient is more stable 8 Diabetes mellitus type II, present on admission, chronic - Correction scale insulin with meals - Hold Basal Lantus 12 units overnight given him nothing by mouth with no tube feeds 9 Urinary retention, present on admission, presumed chronic - Possible history of prostate cancer versus BPH - Morton catheter in place will be discontinued and have bladder scans when necessary tomorrow 10 history of dementia, present on admission, chronic - G-tube available for feeding - Palliative consulted for goals of care discussion DVT prophylaxis with heparin subcutaneous GI prophylaxis not indicated at this time CODE STATUS DNR /DNI . Disposition: patient is likely in for a Hospital stay of 4-5 days with recovery to baseline expected barring unforeseen complications VTE Prophylaxis: Sub-Q Heparin (Unfractionated) Resuscitation Status: DNR/DNI:Do Not Resuscitate/Intubate Attending Statement The patient was seen and examined together with Dr. Bhatia on 06-16-16 and I agree with the history, exam and plan as outlined in the note above. Rex Bhatia DO Jun 16, 2016 08:05 Jessica Goodson MD Jun 17, 2016 13:31
[2016-06-17] MEDS: Insulin LISPRO 300 Unit/3 mL Inj SUBQ SCH ×5 (01:41→20:54)
[2016-06-17 03:08] LABS: BASOPHILS % (AUTO) 0.2 % (0-3); EOSINOPHILS % (AUTO) 0 % (0-5); MONOCYTES % (AUTO) 11.3 % (4-12); Mean Corpuscular Hemoglobin 29.8 pg (27.0-35.0); Mean Corpuscular Volume 94.5 fL (81-100); Platelet Count 201 bil/L (150-400)
[2016-06-17 03:40] LABS: Phosphorus 3.5 mg/dL (2.5-4.9)
[2016-06-17 03:53] VITALS: BP 151/98; PULSE 91; RESP 16; O2SAT 94
[2016-06-17 05:44] VITALS: PULSE 87
[2016-06-17] MEDS: Polyethylene Glycol (PEG) 17 Gm Powder PO SCH ×2 (07:41→20:24)
[2016-06-17] MEDS: predniSONE 20 mg Tablet TUBE SCH (07:42)
[2016-06-17 07:59] VITALS: BP 146/84; PULSE 88; RESP 14; O2SAT 92
[2016-06-17] MEDS: Heparin 5,000 Unit/mL Inj SUBQ SCH ×2 (08:14→20:51)
[2016-06-17 08:42] VITALS: PULSE 74; RESP 18; O2SAT 94
[2016-06-17] MEDS: Albuterol-Ipratropium 3 mL Inhalation Solution NEB SCH ×4 (08:42→22:54)
[2016-06-17] MEDS: Piperacillin-Tazo 3.375 Gm Inj 3.375 GM in Dextrose 5% Minibag Plus 50 ML IV SCH ×2 (12:19→15:35)
[2016-06-17] MEDS: 0.9% Sodium Chloride 1,000 ML IV SCH ×2 (12:19→20:26)
[2016-06-17 14:48] VITALS: PULSE 73; RESP 16; O2SAT 95
--- NOTE | 2016-06-17 17:48 | PCM.PNMED ---
Subjective Date of Service Jun 17, 2016 Subjective overnight: No acute events overnight Today: Family consented to patient IV being restarted with sitter present, and patient in boxing glove restraints overnight. G-tube replaced by Dr. Caballero this afternoon. Zosyn restarted at previous dosing. Exam Vital Signs Vital Sign - Last Date Time Temp Pulse Resp B/P Pulse Ox O2 Delivery O2 Flow Rate FiO2 06/17/16 05:44 87 06/17/16 03:53 36.3 16 151/98 94 Room Air 06/15/16 15:21 2.00 Intake and Output 06/16/16 06/16/16 06/17/16 Cumulative From/Thru 15:00 23:00 07:00 06/13/16 15:06 - 06/17/16 06:03 Intake Total 0 ml 6211 ml Output Total 100 ml 1300 ml 5875 ml Balance -100 ml -1300 ml 336 ml Intake Oral 0 ml 360 ml IV Total 5281 ml Tube Feeding 520 ml Tube Irrigant 50 ml Output Urine Total 100 ml 1300 ml 5875 ml # Bowel Movements 1 1 Exam General : Elderly chronically Ill appearing male lying in bed in bed comfortably. Refusing to interact with physician, patient is hard of hearing and not disturbed immediately upon entry into the room however obviously awake and looked at patient upon placing stethoscope on chest and then pretended to be asleep, through sternal rub and nail bed pressure. Eyes: Unable to assess given patient on [employer] HENT : Head is normocephalic atraumatic Neck : Supple, no JVD, trachea is midline Cardiovascular: Regular rate and rhythm, murmur noted at left sternal border, no rubs or gallops Lungs : Clear to auscultation bilaterally no wheezing rales or rhonchi Abdomen : NABS, Soft, non tender, nondistended. PEG tube in place Extremity : No edema, No cyanosis , clubbing noted : Morton catheter in place yielding clear urine Neuro : Unable to assess given patient cooperation MSK: Unable to assess given patient cooperation Psych: Nonvocal unable to assess Lab and Diagnostics Result Diagram: 06/17/16 0300 06/17/16 0300 X-Rays, CTs and MRIs CT BRAIN WITHOUT CONTRAST ([id number]) IMPRESSION: No acute intracranial disease process. Dictated by: Itzel Dias MD, PhD on 06/14/2016 at 9:36 Approved by: Itzel Dias MD, PhD on 06/14/2016 at 9:37 X-RAY CHEST ONE VIEW, PORTABLE ([id number]) IMPRESSION: Mild blunting of the left costophrenic angle and left basilar patchy density redemonstrated. Dictated by: George Mclean RRA Interpreted: Itzel Dias MD on 06/14/2016 at 10:10 Transcribed by: RAMAN on 06/14/2016 at 10:12 Approved by: Itzel Dias MD, PhD on 06/14/2016 at 17:02 Assessment & Plan 81-year-old male past medical history remarkable for COPD and recent hospitalization for Haemophilus influenza presents with worsening shortness of breath. Hospital day 4 1. Acute kidney injury on chronic Renal Failure, present on admission, treated improving - History of Stage III CKD with creatinine baseline at 1.7 - Likely due to UTI and pre-renal azotemia . - CMP in AM - Patient has been uncooperative, pulled IV lines, family had requested previously the patient not be restrained - PEG tube blockage would not allow for fluids to be given, repeat attempts to unclog by nursing as well as bicarbonate pancrelipase solution unsuccessful - Treatment delayed 06/16, family meeting with primary team and palliative held to determine goals of care, family required hours to make a decision on if an IV should be restarted for antibiotics family returned with only a decision on G -tube, nursing staff advised to again place question on IV start for antibiotics family decided that IV should not be started until tomorrow morning - Patient would not cooperate with speech therapy 06/16 for swallow evaluation after nursing reports of coughing and choking with aspiration risk - Family consented to patient IV being restarted with sitter present, and patient in boxing glove restraints overnight. - G-tube replaced by Dr. Caballero this afternoon. - patient passed speech eval for mechanical soft nectar thick 2. Acute urinary tract infection, present on admission, chronic - Report from daughter is that patient wears diapers due to incontinence and has difficult time taking care of patient so he remains sensorial diapers for extended periods of time - Social work following and palliative consulted for placement at discharge - Infectious disease doctor recommends Zosyn for a course of 5-7 days total - Initial sensitivities show antibiotic choices to be cefepime and possibly Zosyn as gentamicin and Bactrim are contraindicated in acute kidney injury, ID requested Zosyn sensitivity - Treatment delayed 06/16, family meeting with primary team and palliative held to determine goals of care, family required hours to make a decision on if an IV should be restarted for antibiotics family returned with only a decision on G -tube, nursing staff advised to again place question on IV start for antibiotics family decided that IV should not be started until 06/17 - urine cultures showed proteus and citrabacter with sensitivity to Zosyn and Cefepime, continue Zosyn started by ID - Patient would not cooperate with speech therapy 06/16 for swallow evaluation after nursing reports of coughing and choking with aspiration risk - Family consented to patient IV being restarted with sitter present, and patient in boxing glove restraints overnight. 3 . Acute COPD exacerbation , present on admission, treated stable - Continue Nebulizer. bronchodilators , supplemental oxygen. - DuoNeb's every 6 hours and albuterol nebs every 2 hours when necessary - supplemental O2 as necessary - Chest X-ray shows no pneumonia , repeat chest x-ray in 48 hours - Unable to give prednisone or Solu-Medrol without IV or PEG tube axis discussed above - continue 40mg prednisone daily 4. Acute Severe Sepsis, present on admission, resolved - Patient meets criteria with heart rate of 126, respiratory rate of 44 and white cell count of 13,000 and lactic acid of 2.3 -Hemodynamically stable. Blood pressure in the 120 systolic -IVF : NS at 100 ml/hr . Monitor electrolytes and renal function closely -Infectious disease is following patient is on IV Zosyn to also cover possible aspiration pneumonia given his significant lethargy and risk of aspiration -Blood culture negative to date . procalcitonin and repeat chest x-rays as necessary -urine cultures showed proteus and citrabacter with sensitivity to Zosyn and Cefepime 5. Hyperkalemia secondary to renal failure, acute, present on admission, stable - Initially given and give one ampule IV sodium bicarbonate, 10 units of IV regular insulin and initiate Kayexalate 30 g per rectum - Continue with scheduled Kayexalate given chronic kidney disease 6. Acute encephalopathy, present on admission, stable improving - Likely due to sepsis does not appear to be due to hypercapnia - CT of head without contrast was negative for acute intracranial process - Likely mild to moderate dementia however difficult to assess given patient's poor hearing - Palliative care consulted to determine goals of care 7. History of Hypertension, not present on admission, chronic - We will restart home meds when patient is more stable 8 Diabetes mellitus type II, present on admission, chronic - Correction scale insulin with meals - Basal Lantus 8 units overnight 9 Urinary retention, present on admission, presumed chronic - Possible history of prostate cancer versus BPH - Morton catheter in place will be discontinued and have bladder scans when necessary tomorrow 10 history of dementia, present on admission, chronic - G-tube available for feeding - Palliative consulted for goals of care discussion DVT prophylaxis with heparin subcutaneous GI prophylaxis not indicated at this time CODE STATUS DNR /DNI . Disposition: patient is likely in for a Hospital stay of 3-4 days with recovery to baseline expected barring unforeseen complications VTE Prophylaxis: Sub-Q Heparin (Unfractionated) Resuscitation Status: DNR/DNI:Do Not Resuscitate/Intubate Attending Statement The patient was seen and examined together with Dr. Bhatia on 06-17-16 and I agree with the history, exam and plan as outlined in the note above. Rex Bhatia DO Jun 17, 2016 07:28 Jessica Goodson MD Jun 18, 2016 10:40
[2016-06-17 20:39] VITALS: BP 137/77; PULSE 73; RESP 16; O2SAT 96
[2016-06-17] MEDS ORDERED: Insulin GLARgine 100 Unit/mL Syringe SUBQ SCH (21:00)
[2016-06-18 02:52] VITALS: BP 140/80; PULSE 69; RESP 16; O2SAT 96
[2016-06-18 03:20] LABS: BASOPHILS % (AUTO) 0.2 % (0-3); EOSINOPHILS % (AUTO) 0.8 % (0-5); Mean Corpuscular Hemoglobin 29.7 pg (27.0-35.0); Mean Corpuscular Volume 93.4 fL (81-100); NEUTROPHILS % (AUTO) 60.2 % (40-74); Platelet Count 202 bil/L (150-400)
[2016-06-18] MEDS: Piperacillin-Tazo 3.375 Gm Inj 3.375 GM in Dextrose 5% Minibag Plus 50 ML IV SCH ×2 (03:39→15:49)
[2016-06-18] MEDS: Insulin LISPRO 300 Unit/3 mL Inj SUBQ SCH ×4 (07:30→22:40)
[2016-06-18] MEDS: Polyethylene Glycol (PEG) 17 Gm Powder PO SCH ×2 (07:49→20:30)
[2016-06-18] MEDS: 0.9% Sodium Chloride 1,000 ML IV SCH ×2 (07:54→13:42)
[2016-06-18] MEDS: Albuterol-Ipratropium 3 mL Inhalation Solution NEB SCH ×4 (08:08→23:55)
[2016-06-18 08:09] VITALS: PULSE 75; RESP 16; O2SAT 95
[2016-06-18 08:16] VITALS: BP 124/73; PULSE 75; RESP 16; O2SAT 94
[2016-06-18] MEDS: Heparin 5,000 Unit/mL Inj SUBQ SCH ×2 (08:28→22:05)
[2016-06-18] MEDS ORDERED: predniSONE 20 mg Tablet PO SCH (08:30)
--- NOTE | 2016-06-18 14:34 | PCM.PNMED ---
Subjective Date of Service Jun 18, 2016 Subjective Patient refuses to interact with me this morning. Sitter at bedside reports he has been sleeping comfortably throughout the morning. Overnight, the patient's daughter was at bedside to keep him oriented. This prevented him from pulling at his lines and IVs. Coban and sleeve also placed for IV protection. Patient difficult to assess from nursing perspective as he is non-verbal toward staff. Exam Vital Signs Vital Sign - Last Date Time Temp Pulse Resp B/P Pulse Ox O2 Delivery O2 Flow Rate FiO2 06/18/16 08:16 36.2 75 16 124/73 94 Room Air 06/15/16 15:21 2.00 Intake and Output 06/17/16 06/17/16 06/18/16 Cumulative From/Thru 15:00 23:00 07:00 06/13/16 15:06 - 06/18/16 06:01 Intake Total 1976 ml 1797 ml 9984 ml Output Total 1100 ml 800 ml 7775 ml Balance 876 ml 997 ml 2209 ml Intake Oral 1400 ml 1750 ml 3510 ml IV Total 576 ml 47 ml 5904 ml Tube Feeding 520 ml Tube Irrigant 50 ml Output Urine Total 1100 ml 800 ml 7775 ml # Bowel Movements 0 1 2 Exam General : Elderly chronically Ill appearing male lying in bed in bed comfortably. Refusing to interact with physician, patient is hard of hearing and not disturbed immediately upon entry into the room. Sitter in place at bedside. Eyes: Unable to assess given patient uncooperative HENT : Head is normocephalic, atraumatic Neck : Supple, no JVD, trachea is midline Cardiovascular: Regular rate and rhythm, murmur noted at left sternal border, no rubs or gallops Lungs : Clear to auscultation bilaterally no wheezing rales or rhonchi Abdomen : Normal bowel tones appreciated, Soft, non tender, nondistended. PEG tube in place Extremity : No edema, No cyanosis , clubbing noted : Morton catheter in place yielding clear urine IVs and Medications Medications Reviewed: Medications were reviewed in detail Lab and Diagnostics Result Diagram: 06/18/16 0250 06/18/16 0250 X-Rays, CTs and MRIs CT BRAIN WITHOUT CONTRAST IMPRESSION: No acute intracranial disease process. Dictated by: Itzel Dias MD, PhD on 06/14/2016 at 9:36 X-RAY CHEST ONE VIEW, PORTABLE IMPRESSION: Mild blunting of the left costophrenic angle and left basilar patchy density redemonstrated. Dictated by: George Mclean RRA Interpreted: Itzel Dias MD on 06/14/2016 at 10:10 Assessment & Plan 81-year-old male past medical history remarkable for COPD and recent hospitalization for Haemophilus influenza presents with worsening shortness of breath. Hospital day 6. 1. Acute kidney injury on chronic Renal Failure, present on admission, treated improving - History of Stage III CKD with creatinine baseline at 1.7. Likely due to UTI and pre-renal azotemia . - Continue IV fluids NS 100 ml/hr as patient has poor PO intake. - Continue to monitor BMP. 2. Acute urinary tract infection, present on admission, chronic - Report from daughter is that patient wears diapers due to incontinence and has difficult time taking care of patient so he remains sensorial diapers for extended periods of time - Dr. Raman of infectious disease consulted and we appreciate his expertise. - Urine cultures showed proteus and citrabacter with sensitivity to Zosyn and Cefepime. Continue IV Zosyn for total 7 day course. Course interrupted as patient removed IV access. Plan to treat until at least 06/20/16 for a full 7 day course. 3. Acute COPD exacerbation , present on admission, improved. - DuoNeb's every 6 hours and albuterol nebs every 2 hours when necessary. - Continue supplemental O2 with goals of 88-92%. - Five day steroid burst completed and will discontinue therapy. 4. Acute Severe Sepsis, present on admission, resolved - Patient meets criteria with heart rate of 126, respiratory rate of 44 and white cell count of 13,000 and lactic acid of 2.3 - Continue NS 100 ml/hr as patient has poor PO intake. - Dr. Raman of infectious disease consulted and we appreciate his expertise. - Continue IV Zosyn as above to complete a 7 day course. 5. Hyperkalemia secondary to renal failure, acute, present on admission, improved. - Continue to monitor BMP. 6. Acute encephalopathy, present on admission, improving - Likely due to sepsis. - Likely mild to moderate dementia however difficult to assess given patient's poor hearing and uncooperative attitude. - Palliative care consulted to determine goals of care. 7. History of Hypertension, chronic, presume stable. - Patient does not appear to have any home meds for this. - Continue to monitor. 8. Diabetes mellitus type II, present on admission, chronic - Low dose correction scale available. - Basal Lantus 10 units HS. 9. Urinary retention, present on admission, presumed chronic - Possible history of prostate cancer versus BPH - Morton catheter in place at this time. Will consider removing tomorrow to evaluate for continued retention. 10. History of dementia, chronic, presume stable. - G-tube available for feeding. - Palliative consulted for goals of care discussion. - Antiemetic available PRN. - Antacid available PRN. - Bowel regimen available PRN. Disposition: patient is to stay so he may receive a full course of IV antibiotics as stated above in the plan. GI Prophylaxis: Not indicated VTE Prophylaxis: Sub-Q Heparin (Unfractionated) Resuscitation Status: DNR/DNI:Do Not Resuscitate/Intubate Attending Statement The patient was seen and examined together with Dr. Mcbride on 06-18-16 and I agree with the history, exam and plan as outlined in the note above. Susan Mcbride DO Jun 18, 2016 14:14 Jessica Goodson MD Jul 03, 2016 16:21
[2016-06-18 14:37] VITALS: BP 156/81; PULSE 76; RESP 16; O2SAT 95
[2016-06-18 15:00] VITALS: PULSE 66; RESP 18; O2SAT 96
[2016-06-18 20:09] VITALS: BP 157/76; PULSE 87; RESP 16; O2SAT 97
[2016-06-18] MEDS: Insulin GLARgine 100 Unit/mL Syringe SUBQ SCH (22:40)
[2016-06-19] MEDS: Piperacillin-Tazo 3.375 Gm Inj 3.375 GM in Dextrose 5% Minibag Plus 50 ML IV SCH (03:07)
[2016-06-19] MEDS: 0.9% Sodium Chloride 1,000 ML IV SCH ×2 (03:54→15:01)
[2016-06-19 06:03] VITALS: BP 144/80; PULSE 67; RESP 20; O2SAT 94
[2016-06-19 07:16] LABS: Magnesium 1.9 mg/dL (1.6-2.6); Phosphorus 5.5 mg/dL (2.5-4.9)
[2016-06-19] MEDS: Insulin LISPRO 300 Unit/3 mL Inj SUBQ SCH ×4 (07:30→20:32)
[2016-06-19 07:43] LABS: BASOPHILS % (AUTO) 0.3 % (0-3); EOSINOPHILS % (AUTO) 0.9 % (0-5); MONOCYTES % (AUTO) 9.6 % (4-12); Mean Corpuscular Volume 88.3 fL (81-100); NEUTROPHILS % (AUTO) 62.2 % (40-74); Platelet Count 235 bil/L (150-400)
[2016-06-19] MEDS: Polyethylene Glycol (PEG) 17 Gm Powder PO SCH ×2 (08:30→20:30)
[2016-06-19 10:24] VITALS: PULSE 79; RESP 20; O2SAT 95
[2016-06-19] MEDS: Albuterol-Ipratropium 3 mL Inhalation Solution NEB SCH ×2 (10:24→22:01)
[2016-06-19] MEDS: Cefepime Inj 1,000 MG in Dextrose 5% Minibag Plus 50 ML IV SCH (10:43)
[2016-06-19] MEDS: Heparin 5,000 Unit/mL Inj SUBQ SCH ×2 (10:44→20:27)
--- NOTE | 2016-06-19 14:20 | PCM.PALLBR ---
Palliative Care Recommendation 81-year-old male admitted with progressive weakness and dyspnea, with picture of sepsis, possibly secondary to UTI as well as exacerbation of COPD and viral pneumonitis. Palliative medicine consulted to assist patient and family and determination of goals of care. Patient is not decisional secondary to dementia and his other medical conditions. Summary of palliative recommendations: -Symptom management (Pain/other)- appears comfortable and in no distress. Continued prn management per hospitalist service. Continuing care including nutritional support, antibiotics, etc. per the medical team. For control of his delirium consider trial of either scheduled low-dose Risperdal at bedtime (0.25 mg PO HS) versus low-dose Seroquel (12.5 mg PO HS) . Nursing will continue other routine measures to attempt to refocus and orient him -DPOA/Advanced Directives/POLST- patient's is his POA. Patient's and family have decided to continue nutritional support, other medical treatment, etc. and are not ready to move on to hospice/comfort care. Patient does remain DO NOT RESUSCITATE/DO NOT INTUBATE/limited interventions/hospitalization okay/ artificial nutrition okay. As family has firmly decided on their treatment plan, palliative medicine will sign off at this time. Please contact us if we may be of further assistance. -Family/emotional support- home situation is complex. Family had hoped that patient would qualify for Medicare SNF coverage, but he does not. He will therefore have to return home (despite his being nearly overwhelmed with his care). 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 Patient Goals: 1. Patient's family wants to be told the truth about his illness, even if it is unpleasant. 2. Patient's family would like to be told prognosis when it can be predicted, to better guide treatment decisions. Additional Medical Diagnoses with primary management by Hospitalist team include : 1. Sepsis : Source likely UTI 2 . COPD exacerbation 3.Renal Failure : Acute on chronic. ( H/o Stage III CKD) 4. UTI 5. Hyperkalemia secondary to renal failure, acute, present on admission 6. Acute on chronic encephalopathy/delirium and dementia present on admission. Chronic Medical problems : COPD Prostate Cancer Hypertension Diabetes Urinary retention Hearing loss CKD stage III. Problems: End of Life Preferences DO NOT RESUSCITATE/DO NOT INTUBATE/limited interventions/already on artificial nutritional support via PEG Goals of Care Evolving- probably return home Disposition Probably home Resuscitation Status Resuscitation Status: DNR/DNI:Do Not Resuscitate/Intubate POLST Updates/Changes Previous POLST?: No . Pain: None Total time 20 minutes; >50% face to face with patient, providing counselling regarding plans and recommendations, and in care coordination with his medical teams. Palliative Brief Note Date of Service Jun 19, 2016 . Returned to reevaluate patient. Prior to visiting, reviewed his updated records in the EMR in detail. When I arrived, he is resting in bed quietly. No distress. Indicates no discomfort. Vital signs noted. Skin warm and dry, pale. Heart, lungs, and abdominal exam stable. Reviewed labs, cultures results, medications, etc. Note that after the conference with his last Sunday, family made the decision to continue care and he was restrained, IV lines were placed and his PEG tube was revised. He continues on cefepime and tube feedings at this time. Mario Logan MD Jun 19, 2016 14:20
--- NOTE | 2016-06-19 14:52 | PCM.PNMED ---
Subjective Date of Service Jun 19, 2016 Subjective Uneventful overnight, was cooperative yesterday. Aleks was evaluated while in bed this morning. He was very hard of hearing, but alert. He was only oriented to person, but not place or time. He denies any pain , but did wince in pain with palpation of his abdomen. He reports he had a normal BM yesterday. He otherwise denies any fever, CP, or difficulties breathing. Exam Vital Signs Vital Sign - Last Date Time Temp Pulse Resp B/P Pulse Ox O2 Delivery O2 Flow Rate FiO2 06/19/16 10:24 79 20 95 Room Air 06/19/16 06:03 36.2 144/80 06/15/16 15:21 2.00 Intake and Output 06/18/16 06/18/16 06/19/16 Cumulative From/Thru 15:00 23:00 07:00 06/13/16 15:06 - 06/19/16 06:03 Intake Total 2571 ml 437 ml 83883 ml Output Total 1050 ml 1500 ml 35196 ml Balance 1521 ml -1063 ml 2667 ml Intake Oral 1554 ml 437 ml 5501 ml IV Total 981 ml 6885 ml Tube Feeding 36 ml 556 ml Tube Irrigant 50 ml Output Urine Total 1050 ml 1500 ml 45113 ml # Bowel Movements 1 2 5 Exam General : Elderly male laying in bed comfortably, without restraints. Cooperative to simple questioning. Eyes: Sclera anicteric HENT : Normocephalic, atraumatic Neck : Supple, no JVD, trachea is midline Cardiovascular: Regular rate and rhythm, murmur noted at left sternal border, no rubs or gallops Lungs : Clear to auscultation bilaterally no wheezing rales or rhonchi Abdomen : Normal bowel tones appreciated, Soft, non tender, nondistended. PEG tube in place Extremity : No edema, No cyanosis , clubbing noted : Morton catheter in place yielding clear urine Psych: appropriately answering questions although not oriented to time or place. IVs and Medications Medications Reviewed: Medications were reviewed in detail Lab and Diagnostics Result Diagram: 06/19/1661906/19/16619 X-Rays, CTs and MRIs CT BRAIN WITHOUT CONTRAST IMPRESSION: No acute intracranial disease process. Dictated by: Itzel Dias MD, PhD on 06/14/2016 at 9:36 X-RAY CHEST ONE VIEW, PORTABLE IMPRESSION: Mild blunting of the left costophrenic angle and left basilar patchy density redemonstrated. Dictated by: George Mclean RRA Interpreted: Itzel Dias MD on 06/14/2016 at 10:10 Assessment & Plan 81-year-old male past medical history remarkable for COPD and recent hospitalization for Haemophilus influenza presents with worsening shortness of breath. Hospital day 6. 1. Acute kidney injury on chronic Renal Failure, present on admission, treated improving - History of Stage III CKD with creatinine baseline at 1.7. Likely due to UTI and pre-renal azotemia . - Continue IV fluids NS 100 ml/hr as patient has poor PO intake. - Improving with hydration and treatment of UTI. 2. Acute urinary tract infection, present on admission, chronic - Report from daughter is that patient wears diapers due to incontinence and has difficult time taking care of patient so he remains sensorial diapers for extended periods of time - Dr. Raman of infectious disease consulted and we appreciate his expertise. - Urine cultures showed proteus and citrabacter with sensitivity to Zosyn and Cefepime. Continue IV Zosyn for total 7 day course. Course interrupted as patient removed IV access. - Plan to treat until at least 06/20/16 for a full 7 day course. 3. Acute COPD exacerbation , present on admission, improved. - DuoNeb's every 6 hours and albuterol nebs every 2 hours when necessary. - Continue supplemental O2 with goals of 88-92%. - Five day steroid burst completed 4. Acute Severe Sepsis, present on admission, resolved - Patient met criteria with heart rate of 126, respiratory rate of 44 and white cell count of 13,000 and urine as source - Continue NS 100 ml/hr as patient has poor PO intake. - Dr. Raman of infectious disease consulted and we appreciate his expertise. - Continue IV Zosyn as above to complete a 7 day course. 5. Hyperkalemia secondary to renal failure, acute, present on admission, improved. - Continue to monitor BMP. 6. Acute Metabolic Encephalopathy, present on admission, improving - Likely due to sepsis and UTI - Likely also had mild to moderate dementia at baseline. - Palliative care consulted to determine goals of care. 7. History of Hypertension, chronic, presume stable. - Patient does not appear to have any home meds for this. - Continue to monitor. Has been stable. 8. Diabetes mellitus type II, present on admission, chronic - Low dose correction scale available. - Basal Lantus 10 units HS. 9. Urinary retention, present on admission, presumed chronic - Possible history of prostate cancer versus BPH - Morton catheter in place at this time. - Per Palliative, will discharge patient home with indwelling Morton per family wishes. 10. History of dementia, chronic, presume stable. - G-tube available for feeding. - Palliative consulted for goals of care discussion. - Antiemetic available PRN. - Antacid available PRN. - Bowel regimen available PRN. Disposition: Likely discharge tomorrow if medically stable. Pain Evaluation: Adequate Pain Control GI Prophylaxis: Not indicated VTE Prophylaxis: Sub-Q Heparin (Unfractionated) Resuscitation Status: DNR/DNI:Do Not Resuscitate/Intubate Time spent 25 minutes Attending Statement I have seen and evaluated patient at bedside in addition to directly supervising care provided by resident physician. I agree with above documentation. Matthew Sanders DO Jun 19, 2016 14:52 Harley Echevarria DO Jun 19, 2016 15:01
[2016-06-19 15:03] VITALS: BP 120/71; PULSE 75; RESP 18; O2SAT 93
[2016-06-19 19:54] VITALS: BP 147/84; PULSE 73; RESP 16; O2SAT 95
[2016-06-19] MEDS: Insulin GLARgine 100 Unit/mL Syringe SUBQ SCH (20:27)
[2016-06-19 22:02] VITALS: PULSE 75; RESP 16; O2SAT 95
[2016-06-20] MEDS: 0.9% Sodium Chloride 1,000 ML IV SCH ×2 (01:00→09:54)
[2016-06-20 04:10] VITALS: BP 141/72; PULSE 80; RESP 16; O2SAT 95
[2016-06-20 07:26] LABS: BASOPHILS % (AUTO) 0 % (0-3); EOSINOPHILS % (AUTO) 1.9 % (0-5); MONOCYTES % (AUTO) 5.5 % (4-12); Mean Corpuscular Volume 91.7 fL (81-100); NEUTROPHILS % (AUTO) 72.1 % (40-74); Platelet Count 219 bil/L (150-400)
[2016-06-20] MEDS: Insulin LISPRO 300 Unit/3 mL Inj SUBQ SCH ×3 (07:30→17:00)
[2016-06-20 07:53] LABS: Phosphorus 4.5 mg/dL (2.5-4.9)
[2016-06-20] MEDS: Polyethylene Glycol (PEG) 17 Gm Powder PO SCH ×2 (08:30→08:55)
[2016-06-20] MEDS: Cefepime Inj 1,000 MG in Dextrose 5% Minibag Plus 50 ML IV SCH (08:30)
[2016-06-20] MEDS: Heparin 5,000 Unit/mL Inj SUBQ SCH (08:56)
[2016-06-20] MEDS: Albuterol-Ipratropium 3 mL Inhalation Solution NEB SCH (09:31)
[2016-06-20 09:32] VITALS: PULSE 77; RESP 20; O2SAT 94
--- NOTE | 2016-06-20 11:52 | PCM.DIMED ---
Matthew Sanders DO 06/20/16 1152: Discharge Instructions Date of Service Jun 20, 2016 Dates of Hospitalization Jun 13, 2016 at 17:22 Discharge Diagnosis Discharge Diagnosis 1. Acute kidney injury on chronic Renal Failure, Improved 2. Acute urinary tract infection, Fully treated 3. Acute COPD exacerbation, improved 4. Acute Severe Sepsis, resolved 5. Hyperkalemia secondary to renal failure, resolved 6. Acute Metabolic Encephalopathy, resolved. 7. Hypertension, chronic, stable 8. Diabetes mellitus type II, stable. 9. Urinary retention, stable 10. History of dementia, chronic, stable Medication Instructions Please continue taking your medications as prescribed. Please resume tube feeding and home [facility] with [facility]. Diet Diabetic Activity No restrictions Call your provider Fever or Chills, Chest pain, Excessive diarrhea, Weakness (unilateral) Patient Instructions You are being discharged home with home health services. You also have an indwelling reyes that will require close management and observation daily. If you develop any fevers, pain or burning with urination, or flank/side pain, then please go to the ER for evaluation or call your doctor immediately. Please drink at least 2 liters of water daily. Please follow up with your PCP within 1-2 weeks. Follow-up Provider: Roscoe Lynch MD Follow-up with PCP in: 1 week Ramon Hernandez MD 06/21/16 0910: Matthew Sanders DO Jun 20, 2016 11:52 Ramon Hernandez MD Jun 21, 2016 09:10
[2016-06-20] MEDS ORDERED: INSU100V7 SUBQ (11:54)
[2016-06-20 13:32] VITALS: BP 153/76; PULSE 84; RESP 18; O2SAT 95
--- NOTE | 2016-06-20 17:27 | PCM.DC.MED ---
Discharge Summary Date of Service Jun 20, 2016 Dates of Hospitalization Date of Hospital Admission Jun 13, 2016 at 17:22 Date of Discharge: Jun 20, 2016 Providers: Admitting Physician: Mario Healy MD Primary Care Physician: Roscoe Lynch MD Attending Physician: Mario Healy MD Diagnosis at Time of Discharge Diagnosis at Time of Discharge 1. Acute kidney injury on chronic Renal Failure, Improved 2. Acute urinary tract infection, Fully treated 3. Acute COPD exacerbation, improved 4. Acute Severe Sepsis, resolved 5. Hyperkalemia secondary to renal failure, resolved 6. Acute Metabolic Encephalopathy, resolved. 7. Hypertension, chronic, stable 8. Diabetes mellitus type II, stable. 9. Urinary retention, stable 10. History of dementia, chronic, stable Consultations Summary of palliative recommendations: -Symptom management (Pain/other)- appears comfortable and in no distress. Continued prn management per hospitalist service. Continuing care including nutritional support, antibiotics, etc. per the medical team. For control of his delirium consider trial of either scheduled low-dose Risperdal at bedtime (0.25 mg PO HS) versus low-dose Seroquel (12.5 mg PO HS) . Nursing will continue other routine measures to attempt to refocus and orient him -DPOA/Advanced Directives/POLST- patient's is his POA. Patient's and family have decided to continue nutritional support, other medical treatment, etc. and are not ready to move on to hospice/comfort care. Patient does remain DO NOT RESUSCITATE/DO NOT INTUBATE/limited interventions/hospitalization okay/ artificial nutrition okay. As family has firmly decided on their treatment plan, palliative medicine will sign off at this time. Please contact us if we may be of further assistance. -Family/emotional support- home situation is complex. Family had hoped that patient would qualify for Medicare SNF coverage, but he does not. He will therefore have to return home (despite his being nearly overwhelmed with his care). 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 Procedures XRay, CTs & MRIs CT BRAIN WITHOUT CONTRAST IMPRESSION: No acute intracranial disease process. Dictated by: Itzel Dias MD, PhD on 06/14/2016 at 9:36 X-RAY CHEST ONE VIEW, PORTABLE IMPRESSION: Mild blunting of the left costophrenic angle and left basilar patchy density redemonstrated. Dictated by: George PATEL Interpreted: Itzel Dias MD on 06/14/2016 at 10:10 Brief History Per admission H&P: Information are obtained form the chart and as per my conversation with the ER physician. Patient is very Drowsy and I am unable to interview his at this time . 81 year old male with a history of COPD, diabetes, and HTN presents to the ER via EMS accompanied by his due to acute on chronic shortness of breath, worsening markedly today. also reports fever, . Patient denies chest pain, and any other symptoms. 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 He was then placed in [facility] rehabilitation until May 2016. Palliative medicine consult to assist patient and family in determination of goals of care. Prior to visiting I reviewed his records in the EMR in detail, including past admissions. Spoke with his bedside nurse and with members of his hospitalist team, including Drs. Goodson and Sriram.. His daughter Amber arrived as I was entering the room to see the patient and I spent an extended time speaking with her at bedside. During this time patient is awake and alert, interacts with Amber by smiling and nodding, but no verbal interaction and his ability to follow/participate in the conversation is extremely limited, with him giving no indication that he actually understands what we are talking about. Does appear to be in no distress however. Amber and I reviewed his history over the last several years in some detail. She expresses concern and dissatisfaction at the care he has received at some other care facilities. She and her family feel that some of his persistent problems are a consequence of inadequate past care. She says that he has been kicked out of various facilities for financial reasons, and that financial issues are very serious right now for the family. She and her mother hope that we will be able to have some additional SNF Medicare coverage following this admission, as the patient's is effectively unable to care for him any longer at home. He continues to have a feeding tube and with it has gained weight and some strength (note that he actually was on TPN as well for nutritional support in the last year). His dysphagia has improved to the point where he can now drink thin liquids and eat mechanical soft foods but his intake remains poor (he eats 3 or 4 bites and then stops). He continues to receive tube feedings now as supplement. He is essentially wheelchair bound at this time. He is partially able to feed himself, but other ADLs are full assist and he needs to wear a diaper at all times, and is occasionally resistant to having diaper changed. Amber feels that this has contributed to some of his recurrent UTIs. She notes that he now sleeps a lot, is very forgetful but appears to "love being at home". He has been receiving some home health physical therapy/bathing assist/home health RN visits which have been very helpful, but apparently money is running out for this. Prior to this admission, patient was living at the family home at [place] where his elderly, diabetic is his chief caregiver. There are multiple generations of additional family members there (altogether greater than 10) but according to Amber known of these other family members are helpful and most are just an additional burden on the patient's . Amber says that her mother could use additional help but "she just does not ask for help" and Amber notes that the current situation "is crushing her". Hospital Course 81-year-old male past medical history remarkable for COPD and recent hospitalization for Haemophilus influenza presents with worsening shortness of breath. Patient was treated for a COPD exacerbation with steroid burst, and a Urosepsis with IV antibiotics for 7 days. Palliative care was also consulted to determine future care goals. Patient is being discharged home in fair condition after treating his infection and exacerbation. He will be leaving with an indwelling reyes catheter in place due to urinary retention and as part of his care plan with the palliative team. 1. Acute kidney injury on chronic Renal Failure, present on admission, Improved - History of Stage III CKD with creatinine baseline at 1.7. Likely due to UTI and pre-renal azotemia . - Improving with hydration and treatment of UTI. 2. Acute urinary tract infection, present on admission, chronic - Report from daughter is that patient wears diapers due to incontinence and has difficult time taking care of patient so he remains sensorial diapers for extended periods of time - Dr. Raman of infectious disease consulted and we appreciate his expertise. - Urine cultures showed proteus and citrabacter with sensitivity to Zosyn and Cefepime. - Treated with IV ZOsyn until 06/20/16 for a full 7 day course. 3. Acute COPD exacerbation , present on admission, Improved. - DuoNeb's every 6 hours and albuterol nebs every 2 hours when necessary. - Continue supplemental O2 with goals of 88-92%. - Five day steroid burst completed 4. Acute Severe Sepsis, present on admission, resolved - Patient met criteria with heart rate of 126, respiratory rate of 44 and white cell count of 13,000 and urine as source 5. Hyperkalemia secondary to renal failure, acute, present on admission, resolved. - Continue to monitor BMP. 6. Acute Metabolic Encephalopathy, present on admission, improving - Likely due to sepsis and UTI - Likely also had mild to moderate dementia at baseline. - Palliative care consulted to determine goals of care. 7. History of Hypertension, chronic, presume stable. - Patient does not appear to have any home meds for this. - Continue to monitor. Has been stable. 8. Diabetes mellitus type II, present on admission, chronic - Low dose correction scale available. - Basal Lantus 10 units HS. 9. Urinary retention, present on admission, presumed chronic - Possible history of prostate cancer versus BPH - Reyes catheter in place at this time. - Per Palliative, will discharge patient home with indwelling Reyes per family wishes. 10. History of dementia, chronic, presume stable. - G-tube available for feeding, will continue on discharge - Palliative consulted for goals of care discussion. Exam Vital Signs (Last) Date Time Temp Pulse Resp B/P Pulse Ox O2 Delivery O2 Flow Rate FiO2 06/20/16 13:32 36.6 84 18 153/76 95 Room Air 06/15/16 15:21 2.00 Exam General : Elderly male laying in bed comfortably, without restraints. Cooperative to simple questioning. Eyes: Sclera anicteric HENT : Normocephalic, atraumatic Neck : Supple, no JVD, trachea is midline Cardiovascular: Regular rate and rhythm, murmur noted at left sternal border, no rubs or gallops Lungs : Clear to auscultation bilaterally no wheezing rales or rhonchi Abdomen : Normal bowel tones appreciated, Soft, non tender, nondistended. PEG tube in place Extremity : No edema, No cyanosis , clubbing noted : Reyes catheter in place yielding clear urine Psych: appropriately answering questions although not oriented to time or place. Test 06/13/16 15:00 06/13/16 17:44 06/13/16 18:15 06/14/16 04:30 Prothrombin Time 10.4sec (8.1-12.5) Prothromb Time International Ratio 0.97ratio D-Dimer 0.8mg/L (<0.50) Pro-B-Type Natriuretic Peptide 2039pg/mL (0-486) Urine Legionella pneumophilia Ag Negative (Negative) Urine Color Dark yellow (YELLOW) Urine Appearance Cloudy (CLEAR,HAZY) Urine pH 8.5 (5.0-8.0) Urine Specific [place] 1.020 (1.003-1.035) Urine Protein 100mg/dL (NEG,TRACE) Urine Glucose (UA) Negativemg/dL (NEGATIVE) Urine Ketones Negativemg/dL (NEGATIVE) Urine Occult Blood Large (NEGATIVE) Urine Nitrite Positive (NEGATIVE) Urine Bilirubin Negative (NEGATIVE) Urine Urobilinogen Normalmg/dL (NORMAL) Urine Leukocyte Esterase Large (NEGATIVE) Urine RBC 3-10/hpf (0-2) Urine WBC >50/hpf (0-5) Urine Epithelial Cells Occasional/hpf (NONE-MOD) Urine Crystals None seen (NONE SEEN) Urine Bacteria Many/hpf (NONE-FEW) Urine Hyaline Casts None/lpf (NONE) Urine Granular Casts None seen (NONE SEEN) Urine Waxy Casts None seen (NONE SEEN) Urine Red Blood Cell Casts None seen (NONE SEEN) Urine White Blood Cell Casts None seen (NONE SEEN) Urine Mucus None seen (None Seen) Urine Trichomonas None seen (NONE SEEN) Urine Yeast None (NONE SEEN) Urinalysis Comment None Urine Culture Reflexed Indicated Hematology Comments Hemoglobin A1c 8.5% (4.8-5.6) Test 06/14/16 10:00 06/14/16 11:52 06/16/16 03:20 06/18/16 02:50 Lactic Acid Level 1.0mmol/L (0.4-2.0) Troponin T 0.119ug/L (0.0-0.011) Band Neutrophils % 1% (1-5) Prealbumin 18mg/dL (20-40) Procalcitonin 0.18ng/mL (0.00-0.08) Test 06/19/16 06:20 06/20/16 06:53 Estimat Glomerular Filtration Rate 31mL/min (>59) Magnesium Level 1.9mg/dL (1.6-2.6) Total Bilirubin 0.4mg/dL (0.0-1.2) Aspartate Amino Transf (AST/SGOT) 25U/L (0-50) Alanine Aminotransferase (ALT/SGPT) 35U/L (0-44) Alkaline Phosphatase 46U/L (25-160) C-Reactive Protein 0.3mg/dL (0.0-0.5) Total Protein 6.3g/dL (6.4-8.4) White Blood Count 8.1th/mm3 (3.8-10.1) Red Blood Count 3.27mil/mm3 (4.40-5.80) Hemoglobin 9.8g/dL (13.8-17.2) Hematocrit 30.0% (41.0-50.0) Mean Corpuscular Volume 91.7fL (81-100) Mean Corpuscular Hemoglobin 30.0pg (27.0-35.0) Mean Corpuscular Hemoglobin Concent 32.7% (32.0-37.0) Red Cell Distribution Width 12.7% (12.3-15.4) Platelet Count 219bil/L (150-400) Neutrophils (%) (Auto) 72.1% (40-74) Lymphocytes (%) (Auto) 20.0% (14-46) Monocytes (%) (Auto) 5.5% (4-12) Eosinophils (%) (Auto) 1.9% (0-5) Basophils (%) (Auto) 0% (0-3) Sodium Level 143mEq/L (134-144) Potassium Level 3.9mEq/L (3.5-5.2) Chloride Level 110mEq/L (97-108) Carbon Dioxide Level 19mmol/L (18-29) Blood Urea Nitrogen 42mg/dL (8-27) Creatinine 2.25mg/dL (0.76-1.27) Glucose Level 111mg/dL (60-99) Calcium Level 8.0mg/dL (8.5-10.1) Phosphorus Level 4.5mg/dL (2.5-4.9) Albumin 2.7g/dL (3.4-5.0) Discharge Medications Discharge Medications ([Lactobacillus Acidophilus]) 1 TABLET TABLET 2 TABLET PO PCHS Prescribed by: DEBBIE CROWLEY MD Ezetimibe/Simvastatin 10-80 mg (Vytorin 10-80 mg) 1 Each Tablet 1 TABLET PO HS ( Reported) Famotidine (Pepcid) 20 Mg Tablet 20 MG PO BID Prescribed by: JOSETTE PINK MD Glipizide ER (Glipizide ER) 10 Mg Tab.er.24 10 MG PO BIDWM (Reported) Insulin Glargine (Lantus U100 Insulin Vial) 100 Unit/Ml Vial 20 UNIT SUBQ HS Prescribed by: VICKY SANDERS DO Insulin Human Lispro (HumaLOG U100 Insulin Vial) 100 Unit/Ml Unit 1-12 UNIT SUBQ ACHS (Reported) Check blood sugars before meals and at bedtime. Use correction factor only before meals. Blood Sugar Lispro Correction: <151, 0 units; 151-175, 1 unit; 176-200, 2 units; 201-225, 3 units; 226-250, 4 units; 251-275, 5 units; 276-300 , 6 units; 301-325, 7 units; 326-350, 8 units; 351-375, 9 units; 376-400, 10 units; >400, 12 units. Tamsulosin (Flomax) 0.4 Mg Capsule 0.4 MG PO HS (Reported) As needed Ipratropium/Albuterol Sulfate (Iprat-Albut 0.5-3(2.5) mg/3 mL Inhalant Soln) 3 Ml Ampul.neb 3 ML IH Q6 PRN PRN For Wheezing (Reported) Nystatin (Nystatin) 60 Applic/15 Gm Cream 1 APPLIC TOP BID PRN PRN RASH ( Reported) Additional med instructions Please continue taking your medications as prescribed. Please resume tube feeding and [facility]. Followup Plan Disposition: Home with [facility] and tube feeding Discharge Diet: Diabetic Discharge Activity: No restrictions Patient Instructions You are being discharged home with home health services. You also have an indwelling reyes that will require close management and observation daily. If you develop any fevers, pain or burning with urination, or flank/side pain, then please go to the ER for evaluation or call your doctor immediately. Please drink at least 2 liters of water daily. Please follow up with your PCP within 1-2 weeks. Follow-up Provider: Roscoe Lynch MD Follow-up with PCP in: 1 week Time spent 35 minutes Attending Statement The patient was seen and examined together with Dr. Sanders on 06/20/2016 and I agree with the history, exam and plan as outlined in the note above. copies to: Roscoe Lynch MD, Hong D DO Jun 20, 2016 17:27 Ramon Hernandez MD Jun 21, 2016 09:10
== END 2016-06-20 19:01 | disposition home health service (06) | DRG 871 ==
LOC: SED 14:56 → MPC 17:22 → PCC 23:41 → MPC 06-18 13:48
PROVIDERS: ADMIT Internal Medicine; ATTEND Internal Medicine
PROC: 3E0G76Z Introduction of Nutritional Substance into Upper GI, Via Natural or Artificial Opening (ICD-10-PCS; principal; 2016-06-14)
DX: A41.9 Sepsis, unspecified organism (principal); G93.41 Metabolic encephalopathy; N39.0 Urinary tract infection, site not specified; J44.1 Chronic obstructive pulmonary disease with (acute) exacerbation; N17.9 Acute kidney failure, unspecified; E11.9 Type 2 diabetes mellitus without complications; I12.9 Hypertensive chronic kidney disease with stage 1 through stage 4 chronic kidney disease, or unspecified chronic kidney disease; N18.3 Chronic kidney disease, stage 3 (moderate); Z66 Do not resuscitate; E87.5 Hyperkalemia; R13.10 Dysphagia, unspecified; R33.9 Retention of urine, unspecified; H91.90 Unspecified hearing loss, unspecified ear; F03.90 Unspecified dementia, unspecified severity, without behavioral disturbance, psychotic disturbance, mood disturbance, and anxiety; R65.20 Severe sepsis without septic shock; Z87.891 Personal history of nicotine dependence; Z79.4 Long term (current) use of insulin; Z93.1 Gastrostomy status; Z99.3 Dependence on wheelchair; Z79.51 Long term (current) use of inhaled steroids; Z85.46 Personal history of malignant neoplasm of prostate